=== PATIENT | female | born 1970 | race Caucasian/White ===

== ENCOUNTER 2023-02-22 07:14 | Outpatient (OUT) | payer OTHER, SELFPAY ==
--- NOTE | 2023-02-22 | MM_ITS ---
Patient Name: LIBBY GARCIA MR#: [id number] : 1970 Exam Date: 02/22/2023 Ordering Doctor: DR Julio Hinojosa . RADIOLOGY REPORT PROCEDURE: MM TOMOSYNTHESIS SCREENING BI COMPARISON: MG MAMM SCREEN 3D RAMEZ CAD, 02/05/2022. MG MAMM SCREEN 3D RAMEZ CAD, 01/27/2021. MG MAMM SCREEN RAMEZ W CAD, 01/27/2020. MG MAMM RAMEZ SCRN W CAD DIG, 10/27/2013. INDICATIONS: Screening Mammography Calculator Name NCI Breast Cancer Risk Assessment Tool 5 Year Breast Cancer Risk 0.90% Lifetime Breast Cancer Risk 7.10% Personal Breast Cancer No Personal Ovarian Cancer No Treatments None Family Cancers Mother with melanoma cancer at age 41. LOCATION: [facility] BREAST COMPOSITION: Heterogeneously dense,which may obscure small masses. FINDINGS: DIAGNOSTIC CATEGORY 1--NEGATIVE. RIGHT BREAST: No significant suspicious finding. No significant change has occurred. LEFT BREAST: No significant suspicious finding. No significant change has occurred. RECOMMENDATIONS: ROUTINE MAMMOGRAM AND CLINICAL EVALUATION IN 12 MONTHS. PLEASE NOTE: A NORMAL MAMMOGRAM DOES NOT EXCLUDE THE POSSIBILITY OF BREAST CANCER. A CLINICALLY SUSPICIOUS PALPABLE LUMP SHOULD BE BIOPSIED. Dictated by: Jadiel Hooks M.D. on 02/22/2023 at 14:45 Approved by: Jadiel Hooks M.D. on 02/22/2023 at 14:47
== END 2023-02-22 07:15 | disposition home or self-care (01) ==
LOC: MAMMO 07:15
PROVIDERS: PCP Internal Medicine; Visit Provider Obstetrics & Gynecology
DX: Z12.31 Encounter for screening mammogram for malignant neoplasm of breast (principal); Z80.8 Family history of malignant neoplasm of other organs or systems
CPT/HCPCS: 77063; 77067

== ENCOUNTER 2023-02-26 20:39 | Outpatient (REF) | payer OTHER, SELFPAY ==
[2023-03-01 12:08] LABS: Age Gdln ACOG Testing Note (.); HPV Aptima Negative (Negative); IGP, Aptima HPV, rfx 16/18,45 Note (.)
== END 2023-02-26 20:40 | disposition home or self-care (01) ==
LOC: LAB 20:39
PROVIDERS: PCP Internal Medicine; Visit Provider Obstetrics & Gynecology
DX: Z01.419 Encounter for gynecological examination (general) (routine) without abnormal findings (principal)
CPT/HCPCS: 87624; G0145

== ENCOUNTER 2023-03-29 06:37 | Outpatient (OUT) | payer OTHER, SELFPAY ==
--- OUTSIDE RECORDS SUMMARY | 2023-03-29 06:40 | XMS_ITS | CCD ---
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 Role Phone AQUILINO, DR SOTOMAYOR Admitting Unavailable AQUILINO, DR SOTOMAYOR Attending Unavailable AQUILINO, DR SOTOMAYOR Primary Care Unavailable AQUILINO, DR SOTOMAYOR Consulting Unavailable JOSHUA, DR ORTIZ Admitting Unavailable JOSHUA, DR ORTIZ Attending Unavailable AQUILINO, DR SOTOMAYOR Primary Care Unavailable MOSCOW, DR MARCELINA Kennedy Consulting Unavailable JOSHUA, DR ORTIZ Consulting Unavailable JOSHUA, DR ORTIZ Admitting Unavailable JOSHUA, DR ORTIZ Attending Unavailable AQUILINO, DR SOTOMAYOR Primary Care Unavailable JOSHUA, DR ORTIZ Consulting Unavailable ZIEBER, DR CRISTINE Garnica Consulting Unavailable Aquilino, Demario Unavailable ANGEL LEWIS Attending Unavailable Allergies Allergy Classification Reported Allergen(s) Allergy Type Date of Onset Reaction(s) Facility (2 sources) patient allergy list reviewed by nurse or physicia Propensity to adverse reactions 8 Comment:Done Interhyp Other (2 sources) Allergies Reconciled Propensity to adverse reactions Unknown Interhyp Other Medications Current Medications Medication Drug Class(es) Dates Sig (Normalized) Sig (Original) cyclobenzaprine hydrochloride 10 mg oral tablet (6 sources) Muscle Relaxant Start: 3 Cyclobenzaprine HCl 10 MG 1 Orally Once a day for 30 day(s) Mar, Active estrogens, conjugated (retirement) 1.25 mg oral tablet (5 sources) Estrogen take 1 tablet by mouth every twenty-four hours Premarin 1.25 MG 1 tablet Orally Once a day Active hydroCHLOROthiazide 12.5 mg oral capsule (6 sources) Thiazide Diuretic Start: 3 take 1 capsule by mouth every twenty-four hours hydroCHLOROthiazide 12.5 MG 1 tablet in the morning Orally Once a day for 90 days Mar, Active Multivitamin preparation (5 sources) take 1 tablet by mouth once daily Multivitamin - 1 tablet Orally Once a day Active Completed/Discontinued Medications Medication Drug Class(es) Dates Sig (Normalized) Sig (Original) azithromycin 250 mg oral tablet (4 sources) Macrolide Antimicrobial Start: 09-07-2022 Azithromycin 250 MG as directed Orally daily for 5 days Sep, Not-Taking/PRN losartan potassium 50 mg oral tablet (6 sources) Angiotensin 2 Receptor Osiel Start: 03-12-2022 take 1 tablet by mouth every twenty-four hours Losartan Potassium 50 MG 1 tablet Orally Once a day for 90 days Mar, Not-Taking/PRN Problems Active Problems Problem Classification Problem Date Documented Date Episodic/Chronic Essential hypertension (14 sources) Essential hypertension; Translations: [Essential (primary) hypertension] Chronic Immunizations and screening for infectious disease (1 source) Encounter for screening for human papillomavirus (HPV); Translations: [ENC SCREENING HUMAN PAPILLOMAVIRUS] Onset: 02-10-2022 Episodic Nausea and vomiting (1 source) Nausea Episodic Other congenital anomalies (2 sources) Congenital spondylolysis of lumbosacral region; Translations: [Congenital spondylolysis, lumbosacral region] Onset: 11-19-2017 Chronic Other diseases of veins and lymphatics (7 sources) Peripheral venous insufficiency; Translations: [Venous insufficiency (chronic) (peripheral)] Episodic Other diseases of veins and lymphatics (3 sources) Venous insufficiency (chronic) (peripheral) Episodic Other female genital disorders (5 sources) Noninflammatory disorder of the vagina; Translations: [Other specified noninflammatory disorders of vagina] Episodic Other nutritional; endocrine; and metabolic disorders (7 sources) Obesity; Translations: [Obesity, unspecified] Chronic Other nutritional; endocrine; and metabolic disorders (1 source) Obesity, unspecified Chronic Other nutritional; endocrine; and metabolic disorders (2 sources) Simple obesity ; Translations: [Other obesity due to excess calories] Onset: 07-19-2016 Chronic Other nutritional; endocrine; and metabolic disorders (2 sources) Obese class II; Translations: [Body mass index 39.0-39.9, adult] Onset: 07-19-2016 Chronic Other nutritional; endocrine; and metabolic disorders (2 sources) Obese class I; Translations: [Body mass index 34.0-34.9, adult] Onset: 07-19-2016 Chronic Other nutritional; endocrine; and metabolic disorders (1 source) Overweight Episodic Other nutritional; endocrine; and metabolic disorders (1 source) Abnormal weight loss Episodic Other screening for suspected conditions (not mental disorders or infectious disease) (5 sources) Encounter for screening mammogram for malignant neoplasm of breast; Translations: [Encounter for screening for malignant neoplasm of cervix] Onset: 02-05-2022 Episodic Residual codes; unclassified (4 sources) Asymptomatic menopausal state; Translations: [ASYMPTOMATIC MENOPAUSAL STATE] Onset: 02-13-2022 Episodic Residual codes; unclassified (1 source) Family history of malignant neoplasm of other organs or systems; Translations: [FAM HX MALIG NEOPLASM OTH ORGN/SYS] Onset: 02-10-2022 Episodic Residual codes; unclassified (1 source) Family history of malignant neoplasm of digestive organs Episodic Spondylosis; intervertebral disc disorders; other back problems (12 sources) Cervical spondylosis; Translations: [Spondylosis without myelopathy or radiculopathy, cervical region] Chronic Sprains and strains (5 sources) Sprain of deltoid ligament of ankle; Translations: [Sprain of deltoid ligament of right ankle, initial encounter] Episodic Past or Other Problems Problem Classification Problem Date Documented Date Episodic/Chronic Acute bronchitis (3 sources) Acute bronchitis; Translations: [Acute bronchitis, unspecified] Onset: 03-01-2014 Episodic Genitourinary symptoms and ill-defined conditions (2 sources) Dysuria; Translations: [Dysuria] Onset: 09-11-2016 Episodic Menopausal disorders (4 sources) Postmenopausal bleeding; Translations: [Postmenopausal bleeding] Resolved: 11-17-2019 Chronic Other female genital disorders (2 sources) Abnormal uterine bleeding; Translations: [Abnormal uterine and vaginal bleeding, unspecified] Resolved: 11-17-2019 Chronic Other nutritional; endocrine; and metabolic disorders (2 sources) Morbid obesity; Translations: [Morbid (severe) obesity due to excess calories] Resolved: 08-22-2020 Chronic Other skin disorders (2 sources) Granulomatous disorder of the skin and subcutaneous tissue; Translations: [Granulomatous disorder of the skin and subcutaneous tissue, unspecified] Resolved: 11-17-2019 Episodic Other upper respiratory infections (4 sources) Acute laryngitis; Translations: [Acute laryngitis] Onset: 03-01-2014 Episodic Viral infection (2 sources) Disease caused by 2019-nCoV; Translations: [COVID-19] Resolved: 09-19-2021 Results Test Name Value Interpretation Reference Range Facil ity CBC AUTO DIFFon 03-17-2022 BASO # 0.0 103/ul Normal 0.0-0.1 [facility] Comment on above: Performed By: #### C BC #### [facility] [address] [address] [address] Dong Mack Basophils/100 WBC (Bld) 0.7 % Normal 0.2-2.0 [facility] Comment on above: Performed By: #### C BC #### [facility] [address] [address] [address] Dong Mack EO # 0.1 103/ul Normal 0.0-0.7 [facility] Comment on above: Performed By: #### C BC #### [facility] [address] [address] [address] Dong Mack Eosinophils/100 WBC (Bld) 2.2 % Normal 0.9-7.0 [facility] Comment on above: Performed By: #### C BC #### [facility] [address] [address] [address] Dong Mack Erythrocyte distribution width (RBC) [Ratio] 11.8 % Normal 11.0-15.0 [facility] Comment on above: Performed By: #### C BC #### [facility] [address] [address] [address] Dong Mack Hematocrit (Bld) [Volume fraction] 39.6 % Normal 36.0-48.0 [facility] Comment on above: Performed By: #### C BC #### [facility] [address] [address] [address] Dong Mack Hemoglobin (Bld) [Mass/Vol] 13.9 g/dL Normal 12.0-16.0 [facility] Comment on above: Performed By: #### C BC #### [facility] [address] [address] [address] Dong Mack IG # 0.02 10e3/ul Normal 0.00-0.03 [facility] Comment on above: Performed By: #### C BC #### [facility] [address] [place] [address] Dr. Dong Mack IG % 0.4 % Normal 0.0-0.5 [facility] Comment on above: Performed By: #### C BC #### [facility] [address] [place] [address] Dr. Dong Mack LYMPH # 2.3 103/ul Normal 1.2-3.8 [facility] Comment on above: Performed By: #### C BC #### [facility] [address] [place] [address] Dr. Dong Mack Lymphocytes/100 WBC (Bld) 42.7 % Normal 20.5-60.0 [facility] Comment on above: Performed By: #### C BC #### [facility] [address] [place] [address] Dr. Dong Mack MANUAL DIFF REQ NO Normal [facility] Comment on above: Performed By: #### C BC #### [facility] [address] [place] [address] Dr. Dong Mack MCH (RBC) [Entitic mass] 31.4 pg Normal 26.7-34.0 [facility] Comment on above: Performed By: #### C BC #### [facility] [address] [place] [address] Dr. Dong Mack MCHC (RBC) [Mass/Vol] 35.1 g/dL Normal 29.9-35.2 [facility] Comment on above: Performed By: #### C BC #### [facility] [address] [place] [address] Dr. Dong Mack MCV (RBC) [Entitic vol] 89.4 fL Normal 81.0-99.0 [facility] Comment on above: Performed By: #### C BC #### [facility] [address] [place] [address] Dr. Dong Mack MONO # 0.4 103/ul Normal 0.3-0.8 [facility] Comment on above: Performed By: #### C BC #### [facility] [address] [place] [address] Dr. Dong Mack Monocytes/100 WBC (Bld) 6.9 % Normal 1.7-12.0 [facility] Comment on above: Performed By: #### C BC #### [facility] [address] [place] [address] Dr. Dong Mack NEUT # 2.5 103/ul Normal 1.4-6.5 [facility] Comment on above: Performed By: #### C BC #### [facility] [address] [place] [address] Dr. Dong Mack Neutrophils/100 WBC (Bld) 47.1 % Normal 43.0-75.0 [facility] Comment on above: Performed By: #### C BC #### [facility] [address] [place] [address] Dr. Dong Mack Platelet mean volume (Bld) [Entitic vol] 10.7 fL Normal 9.5-13.5 [facility] Comment on above: Performed By: #### C BC #### [facility] [address] [place] [address] Dr. Dong Mack PLT 280 103/ul Normal 150-450 [facility] Comment on above: Performed By: #### C BC #### [facility] [address] [place] [address] Dr. Dong Mack RBC 4.43 106/ul Normal 4.20-5.40 [facility] Comment on above: Performed By: #### C BC #### [facility] [address] [place] [address] Dr. Dong Mack WBC 5.3 103/ul Normal 4.0-11.0 [facility] Comment on above: Performed By: #### C BC #### [facility] [address] [place] [address] Dr. Dong Mack LIPID PROFILEon 03-17-2022 CHOL-HDL RATIO NORM SEE BELOW Normal [facility] Comment on above: Result Comment: 3.3 - 4.4 LOW RISK 4.4 - 7.1 AVERAGE RISK 7.1 - 11.0 MODERATE RISK >11.0 HIGH RISK Performed By: #### L IPID, TSH, CMP #### [facility] [address] [address] [address] Dong Mack Cholesterol [Mass/Vol] 254 mg/dL Critically high <=200 [facility] Comment on above: Performed By: #### L IPID, TSH, CMP #### [facility] [address] [address] [address] Dong Mack Cholesterol in HDL [Mass/Vol] 72 mg/dL Critically high 40-60 [facility] Comment on above: Performed By: #### L IPID, TSH, CMP #### [facility] [address] [address] [address] Dong Mack Cholesterol in LDL [Mass/Vol] 152.4 mg/dL Normal [facility] Comment on above: Performed By: #### L IPID, TSH, CMP #### [facility] [address] [place] [address] Dr. Dong Mack Cholesterol.total/ Cholesterol in HDL [Mass ratio] 3.5 {ratio} Normal [facility] Comment on above: Performed By: #### L IPID, TSH, CMP #### [facility] [address] [place] [address] Dr. Dong Mack HDL NORMAL > or = 60 mg/dl - LO W CARDIOVASCULAR RISK <40 mg/dl - HIGH CARDIOVASCULAR RISK Normal [facility] Comment on above: Performed By: #### L IPID, TSH, CMP #### [facility] [address] [address] [address] Dong Mack LDL CALC NORMAL SEE BELOW Normal [facility] Comment on above: Result Comment: <100 mg/dl OPTIMAL 100 - 129 mg/dl NEAR OR ABOVE OPTIMAL 130 - 159 mg/dl BORDERLINE HIGH 160 - 189 mg/dl HIGH >190 mg/dl VERY HIGH Performed By: #### L IPID, TSH, CMP #### [facility] [address] [address] [address] Dong Mack Triglyceride [Mass/Vol] 148 mg/dL Normal <=150 [facility] Comment on above: Performed By: #### L IPID, TSH, CMP #### [facility] [address] [address] [address] Dong Mack VLDL CALC 29.6 mg/dL Normal [facility] Comment on above: Performed By: #### L IPID, TSH, CMP #### [facility] [address] [place] [address] Dr. Dong Mack PROF 14(COMP METB)on 023 Albumin [Mass/Vol] 3.8 g/dL Normal 3.4-5.0 [facility] Comment on above: Performed By: #### L IPID, TSH, CMP #### [facility] [address] [place] [address] Dr. Dong Mack Albumin/Globulin [Mass ratio] 1.2 {ratio} Normal [facility] Comment on above: Performed By: #### L IPID, TSH, CMP #### [facility] [address] [place] [address] Dr. Dong Mack ALP [Catalytic activity/Vol] 52 U/L Normal 46-116 [facility] Comment on above: Performed By: #### L IPID, TSH, CMP #### [facility] [address] [place] [address] Dr. Dong Mack ALT [Catalytic activity/Vol] 27 U/L Normal 14-59 [facility] Comment on above: Performed By: #### L IPID, TSH, CMP #### [facility] [address] [place] [address] Dr. Dong Mack Anion gap [Moles/Vol] 8.1 mmol/L Normal [facility] Comment on above: Performed By: #### L IPID, TSH, CMP #### [facility] [address] [place] [address] Dr. Dong Mack AST [Catalytic activity/Vol] 22 U/L Normal 15-37 [facility] Comment on above: Performed By: #### L IPID, TSH, CMP #### [facility] [address] [place] [address] Dr. Dong Mack Bilirubin [Mass/Vol] 0.7 mg/dL Normal 0.2-1.0 [facility] Comment on above: Performed By: #### L IPID, TSH, CMP #### [facility] [address] [place] [address] Dr. Dong Mack Calcium [Mass/Vol] 9.2 mg/dL Normal 8.5-10.1 [facility] Comment on above: Performed By: #### L IPID, TSH, CMP #### [facility] [address] [address] [address] Dong Mack Chloride [Moles/Vol] 103 mmol/L Normal 98-107 [facility] Comment on above: Performed By: #### L IPID, TSH, CMP #### [facility] [address] [place] [address] Dr. Dong Mack CO2 [Moles/Vol] 33.9 mmol/L Critically high 21.0-32.0 [facility] Comment on above: Performed By: #### L IPID, TSH, CMP #### [facility] [address] [place] [address] Dr. Dong Mack Creatinine [Mass/Vol] 0.66 mg/dL Normal 0.55-1.02 [facility] Comment on above: Performed By: #### L IPID, TSH, CMP #### [facility] [address] [place] [address] Dr. Dong Mack EGFR-AF COMORAN >60 Normal >=60 [facility] Comment on above: Performed By: #### L IPID, TSH, CMP #### [facility] [address] [place] [address] Dr. Dong Mack EGFR-NON AF COMORAN >60 Normal >=60 [facility] Comment on above: Performed By: #### L IPID, TSH, CMP #### [facility] [address] [place] [address] Dr. Dong Mack Globulin (S) [Mass/Vol] 3.3 g/dL Normal [facility] Comment on above: Performed By: #### L IPID, TSH, CMP #### [facility] [address] [place] [address] Dr. Dong Mack Glucose [Mass/Vol] 94 mg/dL Normal 74-106 [facility] Comment on above: Performed By: #### L IPID, TSH, CMP #### [facility] [address] [address] [address] Dong Mack Potassium [Moles/Vol] 4.0 mmol/L Normal 3.5-5.1 [facility] Comment on above: Performed By: #### L IPID, TSH, CMP #### [facility] [address] [place] [address] Dr. Dong Mack Protein [Mass/Vol] 7.1 g/dL Normal 6.4-8.2 [facility] Comment on above: Performed By: #### L IPID, TSH, CMP #### [facility] [address] [place] [address] Dr. Dong Mack Sodium [Moles/Vol] 141 mmol/L Normal 136-145 [facility] Comment on above: Performed By: #### L IPID, TSH, CMP #### [facility] [address] [place] [address] Dr. Dong Mack Urea nitrogen [Mass/Vol] 13.0 mg/dL Normal 7.0-18.0 [facility] Comment on above: Performed By: #### L IPID, TSH, CMP #### [facility] [address] [place] [address] Dr. Dong Mack Urea nitrogen/Creatinin e [Mass ratio] 19.7 mg/mg Normal [facility] Comment on above: Performed By: #### L IPID, TSH, CMP #### [facility] [address] [place] [address] Dr. Dong Mack TSHon 03-17-2022 TSH 1.223 uIU/mL Normal 0.358-3.740 [facility] Comment on above: Performed By: #### L IPID, TSH, CMP #### [facility] [address] [place] [address] Dr. Dong Mack PAP ACOG PANEL 2: 30 to 65on 02-13-2022 . . Normal [facility] Comment on above: Result Comment: Perf ormed at: WB Performed By: #### [id number] #### [facility] [address] [place] [address] Dr. Dong Mack Age Gdln ACOG Testing 30-65 Normal [facility] Comment on above: Performed By: #### [id number] #### [facility] [address] [place] [address] Dr. Dong Mack DIAGNOSIS: Comment Normal [facility] Comment on above: Result Comment: NEGA TIVE FOR INTRAEPITHELIAL LESION OR MALIGNANCY. Performed at: WB Performed By: #### [id number] #### [facility] [address] [place] [address] Dr. Dong Mack HPV Aptima Negative Normal Negative [facility] Comment on above: Result Comment: This nucleic acid amplification test detects fourteen high-risk HPV types (16,18,31,33,35,39,45,51,52,56,58,59,66,68) without differentiation. Performed at: =G Performed By: #### [id number] #### [facility] [address] [place] [address] Dr. Dong Mack HPV Genotype Reflex Comment Normal [facility] Comment on above: Result Comment: Crit eria not met, HPV Genotype not performed. Performed at: WB Performed By: #### [id number] #### [facility] [address] [place] [address] Dr. Dong Mack Methodology: Comment Normal [facility] Comment on above: Result Comment: This liquid based ThinPrep(R) pap test was screened with the use of an image guided system. Performed at: WB Performed By: #### [id number] #### [facility] [address] [place] [address] Dr. Dong Mack Note: Comment Normal [facility] Comment on above: Result Comment: The Pap smear is a screening test designed to aid in the detection of premalignant and malignant conditions of the uterine cervix. It is not a diagnostic procedure and should not be used as the sole means of detecting cervical cancer. Both false-positive and false-negative reports do occur. . Performed at: WB Performed By: #### [id number] #### [facility] [address] [address] [address] Dong Mack Performed by: Comment Normal [facility] Comment on above: Result Comment: Nithya Keen, Palletizer Operator Performed at: WB Performed By: #### [id number] #### [facility] [address] [address] [address] Dong Mack Specimen adequacy: Comment Normal [facility] Comment on above: Result Comment: Sati sfactory for evaluation. Endocervical and/or squamous metaplastic cells (endocervical component) are present. Performed at: WB Performed By: #### [id number] #### [facility] [address] [address] [address] Dong Mack XR DEXA BONE DENSITYon 02-13 XR DEXA BONE DENSITY EXAMINATION: XR DEXA BONE DENSITY, 02/13/2022 7:56 AM EST HISTORY: Menopause present COMPARISON: None. TECHNIQUE: Dual-energy X-ray absorptiometry (DEXA) bone density study performed for the axial skeleton. FINDINGS: FOREARM ANALYSIS: Average bone mineral density is 0.752 g/cm2. T-score (standard deviation relative to young adult mean): 0.5 . HIP ANALYSIS: Lowest bone mineral density is within the right femoral neck, 1.089 g/cm2. T-score (standard deviation relative to young adult mean): 0.4 . IMPRESSION: [employer] Organization Classification: Normal - Low Fracture Risk Electronically authenticated by: CRISTINE POPE Date: 2022-02-13 08:43 Normal [facility] MAMM SCREEN 3D RAMEZ CADon 02-05-2022 MG MAMM SCREEN 3D RAMEZ CAD Patient: LIBBY NINO Exam Date: 02/05/2022 : 1970 Gender:F Ordering : DR ANGEL LEWIS . Admission #: [id number] Family : DR DEMARIO ROLLE D.O. Order #: [id number] CLICK HERE TO VIEW EXAM RADIOLOGY REPORT PROCEDURE: MAMMOGRAM SCREENING 3D BILATERAL CAD COMPARISON: MG MAMM SCREEN 3D RAMEZ CAD, 01/27/2021. MG MAMM SCREEN RAMEZ W CAD, 01/27/2020. INDICATIONS: Screening mammography Calculator Name NCI Breast Cancer Risk Assessment Tool 5 Year Breast Cancer Risk 0.80% Lifetime Breast Cancer Risk 7.20% Personal Breast Cancer No Personal Ovarian Cancer No Treatments None Family Cancers Mother with melanoma cancer at age 41. LOCATION: [facility] BREAST COMPOSITION: Heterogeneously dense,which may obscure small masses. FINDINGS: DIAGNOSTIC CATEGORY 2--BENIGN FINDING: Scattered benign-appearing lymph nodes are present. RIGHT BREAST: No significant suspicious finding. LEFT BREAST: No significant suspicious finding. RECOMMENDATIONS: ROUTINE MAMMOGRAM AND CLINICAL EVALUATION IN 12 MONTHS. PLEASE NOTE: A NORMAL MAMMOGRAM DOES NOT EXCLUDE THE POSSIBILITY OF BREAST CANCER. A CLINICALLY SUSPICIOUS PALPABLE LUMP SHOULD BE BIOPSIED. Dictated by: Marcelina Triana MD on 02/05/2022 at 09:49 Approved by: Marcelina Triana MD on 02/05/2022 at 09:50 Normal [facility] COVID-19 Antigenon 2 COVID-19 Antigen Healthcare Worker?: N Carli Reference Carli Reference Negative SARS-CoV+SARS-CoV-2 (COVID-19) Ag [Presence] in Respiratory specimen by Rapid immunoassay Negative for SARS Antigen by ANTONIO COVID19 Blank Space Carli Disclaimer Negative results, from patients with symptom Carli Disclaimer onset beyond five days, should be treated as Carli Disclaimer presumptive and confirmation with a molecular Carli Disclaimer assay, if necessary, for patient management, Carli Disclaimer may be performed. Negative results do not rule Carli Disclaimer out COVID-19 and should not be used as the sole Carli Disclaimer basis for treatment or patient management Carli Disclaimer decisions, including infection control decisions. Carli Disclaimer Negative results should be considered in the Carli Disclaimer context of a patient's recent exposures, history Carli Disclaimer and the presence of clinical signs and symptoms Carli Disclaimer consistent with COVID-19. COVID19 Blank Space Carli Disclaimer The Carli SARS Antigen ANTONIO does not differentiate Carli Disclaimer between SARS-CoV and SARS-CoV-2. COVID19 Blank Space Carli Disclaimer This test was developed and its performance Carli Disclaimer characteristic determined by [employer] and Carli Disclaimer validated at [facility]. This Carli Disclaimer test has not been FDA cleared or approved. This Carli Disclaimer test has been authorized by FDA under an Emergency Use Carli Disclaimer Authorization (EUA). This test has been validated Carli Disclaimer in accordance with the FDA's Guidance Document (Policy Carli Disclaimer for Diagnostics Testing in Laboratories Certified to Carli Disclaimer Perform High Complexity Testing under CLIA prior to Carli Disclaimer Emergency Use Authorization for Coronavirus Carli Disclaimer is during the Public Health Emergency) Carli Disclaimer issued on June 04, 2019. This test is only authorized Carli Disclaimer for the duration of time the declaration that Carli Disclaimer circumstances exist justifying the authorization of Carli Disclaimer the emergency use of in vitro diagnostic tests for Carli Disclaimer detection of SARS-CoV-2 virus and/or diagnosis of Carli Disclaimer COVID-19 infection under section 564(b)(1) of the Carli Disclaimer Act, 21 U.S.C. 360bbb-3(b)(1), unless the Carli Disclaimer authorization is terminated or revoked sooner. PERFORMED BY: [facility] [address] [place] [address] PATHOLOGIST ASSISTANT COUNSEL WAQAS DÍAZ M.D. [facility] Comment on above: Performed By: #### C OVID-19 CARLI, SOFIANEG #### [facility] [address] Carli Ag Negativeon 04-25-19 22 Carli Ag Negative Negative Normal Negative [facility] Comment on above: Result Comment: This is a duplicate Carli SARS Antigen (ANTONIO) result to be used for statistical tracking purpose only. PERFORMED BY: [facility] [address] [place] [address] PATHOLOGIST ASSISTANT COUNSEL WAQAS DÍAZ M.D. Performed By: #### C OVID-19 CARLI, SOFIANEG #### [facility] [address] LUMBAR SPINE 2 OR 3 VIEWSon 09-18-2018 LUMBAR SPINE 2 OR 3 VIEWS STUDY: LUMBAR SPINE 2 OR 3 VIEWS; 09/18/2018 10:45 am INDICATION: PAIN. COMPARISON: Intraoperative radiographs from 06/25/2018 ACCESSION NUMBER(S): [id number] ORDERING CLINICIAN: Emely Puckett FINDINGS: Interbody graft at L3-4. Posterior metallic fusion hardware with laminectomy defects L4-S1. Grade 2-3 anterolisthesis L5-S1 unchanged. No new fracture subluxation. No new disc height loss. Degenerative changes appear similar prior exam. IMPRESSION: L3-4 and L4-S1 fusion changes. Normal [facility] BASIC MET PANELon 06-26-2018 Anion gap [Moles/Vol] 8 mmol/L Normal 6-18 [facility] Comment on above: Order Comment: CONSE RVATION Performed By: #### L 500.77381, L500.76060, L500.80995 #### Test performed at: [address] [address] Calcium [Mass/Vol] 8.3 mg/dL Low 8.5-10.1 [facility] Comment on above: Order Comment: CONSE RVATION Performed By: #### L 500.23591, L500.26793, L500.74210 #### Test performed at: [address] [address] Chloride [Moles/Vol] 103 mmol/L Normal 98-107 [facility] Comment on above: Order Comment: CONSE RVATION Performed By: #### L 500.95380, L500.32002, L500.83588 #### Test performed at: [address] [address] CO2 [Moles/Vol] 30 mmol/L Normal 21-32 [facility] Comment on above: Order Comment: CONSE RVATION Performed By: #### L 500.06143, L500.89813, L500.03122 #### Test performed at: [address] [address] Creatinine [Mass/Vol] 0.620 mg/dL Normal 0.550-1.020 [facility] Comment on above: Order Comment: CONSE RVATION Performed By: #### L 500.31819, L500.49050, L500.73486 #### Test performed at: [address] [address] Glucose [Mass/Vol] 139 mg/dL High 70-99 [facility] Comment on above: Order Comment: CONSE RVATION Result Comment: Fast ing GLUCOSE reference range has been updated per (ADA) [place] [employer]'s recommendation. 05/27/2018 Performed By: #### L 500.47502, L500.20519, L500.79734 #### Test performed at: [address] [address] OSM 284 mosm/kg Normal 270-300 [facility] Comment on above: Order Comment: CONSE RVATION Performed By: #### L 500.28723, L500.43008, L500.82904 #### Test performed at: [address] [address] Potassium [Moles/Vol] 4.3 mmol/L Normal 3.5-5.1 [facility] Comment on above: Order Comment: CONSE RVATION Performed By: #### L 500.68942, L500.43486, L500.86755 #### Test performed at: [address] [address] Sodium [Moles/Vol] 137 mmol/L Normal 136-145 [facility] Comment on above: Order Comment: CONSE RVATION Performed By: #### L 500.52405, L500.74900, L500.40722 #### Test performed at: [address] [address] Urea nitrogen [Mass/Vol] 5 mg/dL Low 7-18 [facility] Comment on above: Order Comment: CONSE RVATION Performed By: #### L 500.50266, L500.17686, L500.93181 #### Test performed at: [address] [address] CBC W/DIFFon 06-26-2018 BASO ABS 0.0 K/uL Normal 0.0-0.2 [facility] Comment on above: Order Comment: CONSE RVATION Performed By: #### L 200.70323 #### Test performed at: [address] [address] Basophils/100 WBC (Bld) 0.1 % Normal [facility] Comment on above: Order Comment: CONSE RVATION Performed By: #### L 200.11147 #### Test performed at: [address] [address] EOS ABS 0.0 K/uL Normal 0.0-0.5 [facility] Comment on above: Order Comment: CONSE RVATION Performed By: #### L 200.80537 #### Test performed at: [address] [address] Eosinophils/100 WBC (Bld) 0.0 % Normal [facility] Comment on above: Order Comment: CONSE RVATION Performed By: #### L 200.22225 #### Test performed at: [address], [place] [address] IG % 0.5 % Normal [facility] Comment on above: Order Comment: CONSE RVATION Performed By: #### L 200.79079 #### Test performed at: [address] [address] IG ABS 0.07 K/uL High 0-0.05 [facility] Comment on above: Order Comment: CONSE RVATION Performed By: #### L 200.49409 #### Test performed at: [address] [address] Lymphocytes (Bld) [#/Vol] 1.2 10*3/uL Normal 1.2-3.5 [facility] Comment on above: Order Comment: CONSE RVATION Performed By: #### L 200.39080 #### Test performed at: [address] [address] Lymphocytes/100 WBC (Bld) 9.2 % Normal [facility] Comment on above: Order Comment: CONSE RVATION Performed By: #### L 200.46530 #### Test performed at: [address] [address] MONO ABS 0.8 K/uL Normal 0.0-1.0 [facility] Comment on above: Order Comment: CONSE RVATION Performed By: #### L 200.05948 #### Test performed at: [address] [address] Monocytes/100 WBC (Bld) 5.7 % Normal [facility] Comment on above: Order Comment: CONSE RVATION Performed By: #### L 200.54002 #### Test performed at: [address] [address] NEUTROPHIL ABS 11.4 K/uL High 1.4-6.6 [facility] Comment on above: Order Comment: CONSE RVATION Performed By: #### L 200.84589 #### Test performed at: [address] [address] Neutrophils/100 WBC (Bld) 84.5 % Normal [facility] Comment on above: Order Comment: CONSE RVATION Performed By: #### L 200.23400 #### Test performed at: [address] [address] Erythrocyte distribution width (RBC) [Ratio] 11.5 % Normal 11.5-14.5 [facility] Comment on above: Order Comment: CONSE RVATION Performed By: #### L 200.12655 #### Test performed at: [address] [address] Hematocrit (Bld) [Volume fraction] 31.4 % Low 36.0-48.0 [facility] Comment on above: Order Comment: CONSE RVATION Performed By: #### L 200.39340 #### Test performed at: [address] [address] Hemoglobin (Bld) [Mass/Vol] 11.2 g/dL Low 12.0-15.0 [facility] Comment on above: Order Comment: CONSE RVATION Result Comment: Delt a: 14.1 on 06/12/18 Performed By: #### L 200.48449 #### Test performed at: [address] [address] MCH (RBC) [Entitic mass] 32.3 pg Normal 25.4-34.6 [facility] Comment on above: Order Comment: CONSE RVATION Performed By: #### L 200.30458 #### Test performed at: [address] [address] MCHC (RBC) [Mass/Vol] 35.7 g/dL Normal 31.5-36.5 [facility] Comment on above: Order Comment: CONSE RVATION Performed By: #### L 200.32572 #### Test performed at: [address] [address] MCV (RBC) [Entitic vol] 90.5 fL Normal 79.0-98.0 [facility] Comment on above: Order Comment: CONSE RVATION Performed By: #### L 200.84897 #### Test performed at: [place] [address] NRBC # 0.000 K/uL Normal 0-0.012 [facility] Comment on above: Order Comment: CONSE RVATION Performed By: #### L 200.02609 #### Test performed at: [place] [address] NRBC % 0.0 /100 WBC Normal 0-0.2 [facility] Comment on above: Order Comment: CONSE RVATION Performed By: #### L 200.84760 #### Test performed at: [address] [address] Platelet mean volume (Bld) [Entitic vol] 11.3 fL Normal 8.7-12.4 [facility] Comment on above: Order Comment: CONSE RVATION Performed By: #### L 200.23323 #### Test performed at: [address] [address] Platelets (Bld) [#/Vol] 208 10*3/uL Normal 140-440 [facility] Comment on above: Order Comment: CONSE RVATION Performed By: #### L 200.68169 #### Test performed at: [address] [address] RBC (Bld) [#/Vol] 3.47 10*6/uL Low 3.5-5.5 [facility] Comment on above: Order Comment: CONSE RVATION Performed By: #### L 200.60063 #### Test performed at: [place] [address] WBC (Bld) [#/Vol] 13.5 10*3/uL High 3.9-11.0 [facility] Comment on above: Order Comment: CONSE RVATION Result Comment: Delt a: 6.5 on 06/12/18 Performed By: #### L 200.83630 #### Test performed at: [place] [address] EST. CREAT CLRon 06-26-2018 Creatinine [Mass/Vol] 159.375 ML/MIN Normal [facility] Comment on above: Order Comment: CBN: YES [place]: MAIN Result Comment: This result is an ESTIMATED blood creatinine clearance value which is derived from the patient age, sex, weight, and previous blood creatinine result. Performed By: #### L 500.31728, L500.93354 #### Test performed at: [place] [address] GFR ESTIMATEon 06-26-2018 IF AMER > 60 Normal > 60 [facility] Comment on above: Order Comment: CBN: YES [place]: MAIN Result Comment: eGFR (Estimated GFR) Units of measure:mL/min/1.73 meters sq. *CALCULATION REVISED 12/21/2014;IDMS-traceable MDRD equation eGFR is derived from the reexpressed MDRD Study equation using the following parameters: serum creatinine, age, gender and race. An eGFR<60 mL/min/1.73m2 for >3 months is consistent with chronic kidney disease. Refer to KDOQI guidelines for clinical interpretation. Performed By: #### L 500.80022, L500.80444 #### Test performed at: [place] [address] IF non-AFR AMER > 60 Normal > 60 [facility] Comment on above: Order Comment: CBN: YES [place]: MAIN Performed By: #### L 500.47373, L500.27422 #### Test performed at: [place] [address] CONSULTATION REPORTon 2018 CONSULTATION REPORT NAME: LIBBY NINO MR#: [id number] PHYS THERAPIST: Valencia Hernandez MD DATE OF CONSULTATION: 06/26/2018 CONSULTATION HISTORY: Mrs. Nino is a 47-year-old female who underwent lumbar decompressive laminectomy. The patient has history of multiple back surgeries due to her degenerative disk disorder. The patient is nonsmoker. Does not use alcohol or drugs. ALLERGIES: She has no known medication allergies. HOME MEDICATIONS: Include Zanaflex, tramadol, Tylenol, gabapentin, and multivitamin. REVIEW OF SYSTEMS: The patient has not been getting out of bed yet. She will remain flat until tomorrow. She denies any shortness of breath, chest pain, nausea, vomiting, lightheadedness. Her postsurgical pain is fairly well controlled. PHYSICAL EXAMINATION: GENERAL: On examination, she is awake and alert, comfortable, afebrile. VITAL SIGNS: Pulse is 104 and regular, respirations 20, blood pressure 114/59, pulse oximetry 99% on room air. BMI of 34.1 kg per square meter. HEENT: Her pupils are reactive. Oral mucosa is moist. LUNGS: Clear on auscultation. CARDIOVASCULAR EXAM: Unremarkable. ABDOMEN: Soft, not distended. Bowel sounds are present. EXTREMITIES: There is no calf tenderness. Pedal pulses are palpable. LABORATORY DATA: Blood work shows hemoglobin of 11.2 with WBCs of 13.5, BUN and creatinine of 5 and 0.62 respectively. ASSESSMENT AND PLAN: Status post lumbar decompressive laminectomy. Mild acute blood loss anemia. DVT prophylaxis with pneumatic compression device. The patient is medically stable. VALENCIA HERNANDEZ MD /[id number] PT NAME: LIBBY NINO MR#: [id number] [address] [place] [address] ACCT: [id number] : 70 CONSULTATION E/S: Valencia Hernandez MD 06/26/18 1221 Electronically Signed [facility] NAME: LIBBY NINO MR#: [id number] [address] [place] [address] ACCT: [id number] : 70 CONSULTATION Normal [facility] OPERATIVE REPORTon 9 OPERATIVE REPORT NAME: LIBBY NINO MR#: [id number] SURGEON: Casandra Russell MD DATE OF SURGERY: 06/25/2018 OPERATIVE REPORT HEALTHCARE ADMINISTRATOR: Sree and Justice Kaur. PREOPERATIVE DIAGNOSIS: Right L5 radiculopathy status post previous decompression with instrumentation using pedicle screws and Steffee plates bilaterally. 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 INDICATION: The patient had been solidly fused for quite some time, but the pain persisted. She had the situation explained to her. We went over the operation in detail discussing risks, benefits, and outcome possibilities as well as alternatives to this form of therapy. She understood and wanted us to proceed. We talked about working until we decompress the nerve root and if that required taking down the hardware and the pedicle we would but what we found was that there was an overgrown facet L4-5 which was pushing down on the nerve root. It also was apparent that the dura in the midline stopped at the L4 lamina and tacked up bunch of epidural fat, looked like they had durotomy because we were working out on the pedicle on the right-hand side and that is when we encountered a flash of CSF. We put a khushbu over that and came back to it at the end of the operation and there was no dura there. There was arachnoid thickened area with the epidural fat placed over it. We cleaned up the edges and we did get a watertight closure, but we were able to tack this up and we used DuraGen at the end of the procedure. OPERATION PERFORMED: Re-exploration, lysis of adhesion, takedown of the lamina at L4 and medial facetectomy at L4-5, partial panniculectomy at L5, opening up the foramina at L5-S1 decompressing the L5 and the S1 nerve root and then the dural repair with DuraGen Plus and green fibrin glue. FINDINGS: By the end of the operation, the L5 nerve root was completely free all the way out the foramen and the shoulder had been freed up and was no longer being pinched in the lateral recess. DESCRIPTION OF PROCEDURE: The patient was brought into the operating room, placed in the supine position. General endotracheal tube anesthesia was administered. The patient was positioned prone on the Ortega frame. The back was clipped, prepped, and draped in usual sterile fashion. The skin was infiltrated with local anesthetic. It was incised with a #10 blade. Hemostasis was obtained using the Bovie electrocautery. Then, the Bovie was used to incise down through the subcutaneous fat down to the fascia. The fascia was incised in the midline and then we were able to stay in the midline [facility] NAME: LIBBY NINO MR#: [id number] [address] [place] [address] ACCT: [id number] : 70 OPERATIVE REPORT exposing just a little bit of the spinous process of L3 and L4 was exposed later in the case, but first we used our Frye and Bovie and undercut out to the hardware and then we put in our Super-Slide retractor. Had good exposure. We would have to open up wider if we were going to take the hardware out, but we thought we would start with this opening and see if we got good decompression. Then, we used our curette, found the edge and made a nice circumferential opening. We stopped at the exposed L4 lamina and then we started working around the pedicle of L5 and this is where we got some CSF and we thought it was coming from the pedicle at L5 because that is where we saw it, but it turns out that is not where the opening was; it just was from the edge was adherent to the lower edge of L4 and just putting a little bit of traction on it caused it to pull free and there was no dura underneath; but in any event, we were able to keep the thecal sac fully expanded and we put a khushbu over that to protect the thecal sac and we used the Misonix BoneScalpel to thin the facet. We went well above the L5 pedicle to make certain that we opened up the lateral recess and undercut the facet all the way to the pedicle and in fact we shaved off 2 or 3 mm of the facet with our bone scalpel and this actually worked nicely because it gave the nerve root much more relaxed trajectory out through the foramen and then we bit off part of the upper lip of the sacrum as it went into the foramen because this was compressing on the nerve root and we worked out laterally both above and inferiorly to the nerve root. Having direct visualization, we made certain that we protected the nerve root and carried it all the way out past the pedicles and we felt that we had given a very nice opening. Then, we freed up the undersurface of the thecal sac with a blunt hook to make certain that the nerve roots could move freely. Then, we went back, irrigated, got good hemostasis with the bipolar and some Surgifoam. We did not leave a drain. There was absolutely no bleeding at the end of the operation and because we had gone through scar tissue, most everything was relatively dry. We did then get our 4-0 Nurolon and start putting some tack-up stitches. Then, we put our DuraGen down and put the tack-up stitches over the top so that it created a bit of a compressive dressing and then we used some of the green glue and got a good sealant and finished up with the green glue covering the entire area. Once everything was finished, then we took the retractor out. We got a good inspection of the muscle and made certain that there was no bleeding. We originally were going to put a drain. We decided not to use a drain because it was so dry and anything that was bleeding this was more of just a seepage and I would rather have a tamponade itself off and take the risk of sucking CSF, so we closed in multiple layers. We approximated the muscle with a few interrupted 0 Nurolon sutures. We closed the fascia in a watertight manner with interrupted 0 Vicryl sutures and then we used 10 mL of 0.5% Marcaine into the paraspinal muscles bilaterally. Then, we used inverted interrupted 2-0 Vicryl in the subcutaneous tissue and we closed the skin with a subcuticular running stitch of 4-0 Vicryl and reinforced with Prineo glue mesh construct. The patient was stable and tolerated the procedure well. CASANDRA RUSSELL MD [facility] NAME: LIBBY NINO MR#: [id number] [address] [place] [address] ACCT: [id number] : 70 OPERATIVE REPORT [id number] E/S: Casandra Russell MD 06/30/18 1134 Electronically Signed [facility] NAME: LIBBY NINO MR#: [id number] [address] [place] [address] ACCT: [id number] : 70 OPERATIVE REPORT Normal [facility] TSon 06-25-2018 ABO and Rh group Nom (Bld) A POSITIVE Normal [facility] Comment on above: Order Comment: CONSE RVATION CBN: NO [place]: MAIN Transfusion Status: CONSERVATION Blood Bank service requested: TYPE AND SCREEN Comments To Phleb: IN SDS Performed By: #### B 100.0200 #### Test performed at: [place] [address] LUMBAR SPINE 1 VIEWon 2018 LUMBAR SPINE 1 VIEW STUDY: LUMBAR SPINE 1 VIEW;; 06/25/2018 11:10 am; 06/25/2018 12:20 pm INDICATION: REMOVAL HARDWARE , FORAMINOTOMY L4-S1; HARDWARE REMOVAL, FORAMINOTOMY L4-S1. COMPARISON: None. ACCESSION NUMBER(S): [id number]; [id number] ORDERING CLINICIAN: Casandra Russell FINDINGS: 2 lateral intraoperative views of the lumbar spine were performed for intraoperative localization. Please see procedure report for further details. IMPRESSION: Two lateral intraoperative views of the lumbar spine for localization. Please see procedure report for further details Normal [facility] LUMBAR SPINE 1 VIEW STUDY: LUMBAR SPINE 1 VIEW;; 06/25/2018 11:10 am; 06/25/2018 12:20 pm INDICATION: REMOVAL HARDWARE , FORAMINOTOMY L4-S1; HARDWARE REMOVAL, FORAMINOTOMY L4-S1. COMPARISON: None. ACCESSION NUMBER(S): [id number]; [id number] ORDERING CLINICIAN: Casandra Russell FINDINGS: 2 lateral intraoperative views of the lumbar spine were performed for intraoperative localization. Please see procedure report for further details. IMPRESSION: Two lateral intraoperative views of the lumbar spine for localization. Please see procedure report for further details Normal [facility] BASIC MET PANELon 06-12-2018 Anion gap [Moles/Vol] 10 mmol/L Normal 6-18 [facility] Comment on above: Order Comment: CBN: YES [place]: MAIN Performed By: #### L 500.72186, L500.80801 #### Test performed at: [address] [address] Calcium [Mass/Vol] 9.7 mg/dL Normal 8.5-10.1 [facility] Comment on above: Order Comment: CBN: YES [place]: MAIN Performed By: #### L 500.08801, L500.87243 #### Test performed at: [address] [address] Chloride [Moles/Vol] 104 mmol/L Normal 98-107 [facility] Comment on above: Order Comment: CBN: YES [place]: MAIN Performed By: #### L 500.45889, L500.11897 #### Test performed at: [address] [address] CO2 [Moles/Vol] 30 mmol/L Normal 21-32 [facility] Comment on above: Order Comment: CBN: YES [place]: MAIN Performed By: #### L 500.28690, L500.94747 #### Test performed at: [address] [address] Creatinine [Mass/Vol] 0.665 mg/dL Normal 0.550-1.020 [facility] Comment on above: Order Comment: CBN: YES [place]: MAIN Performed By: #### L 500.53404, L500.13897 #### Test performed at: [address] [address] Glucose [Mass/Vol] 98 mg/dL Normal 70-99 [facility] Comment on above: Order Comment: CBN: YES [place]: MAIN Result Comment: Fast ing GLUCOSE reference range has been updated per (ADA) [place] [employer]'s recommendation. 05/27/2018 Performed By: #### L 500.23698, L500.68318 #### Test performed at: [address] [address] OSM 288 mosm/kg Normal 270-300 [facility] Comment on above: Order Comment: CBN: YES [place]: MAIN Performed By: #### L 500.69633, L500.68725 #### Test performed at: [address] [address] Potassium [Moles/Vol] 4.5 mmol/L Normal 3.5-5.1 [facility] Comment on above: Order Comment: CBN: YES [place]: MAIN Performed By: #### L 500.31402, L500.13195 #### Test performed at: [address] [address] Sodium [Moles/Vol] 139 mmol/L Normal 136-145 [facility] Comment on above: Order Comment: CBN: YES [place]: MAIN Performed By: #### L 500.76736, L500.30528 #### Test performed at: [address] [address] Urea nitrogen [Mass/Vol] 13 mg/dL Normal 7-18 [facility] Comment on above: Order Comment: CBN: YES [place]: MAIN Performed By: #### L 500.26607, L500.41774 #### Test performed at: [address] [address] CBCon 06-12-2018 Erythrocyte distribution width (RBC) [Ratio] 11.9 % Normal 11.5-14.5 [facility] Comment on above: Order Comment: CBN: YES [place]: MAIN Performed By: #### L 200.46499 #### Test performed at: [address] [address] Hematocrit (Bld) [Volume fraction] 40.7 % Normal 36.0-48.0 [facility] [place] Comment on above: Order Comment: CBN: YES [place]: MAIN Performed By: #### L 200.40507 #### Test performed at: [address] [address] Hemoglobin (Bld) [Mass/Vol] 14.1 g/dL Normal 12.0-15.0 [facility] Comment on above: Order Comment: CBN: YES [place]: MAIN Performed By: #### L 200.62690 #### Test performed at: [address] [address] MCH (RBC) [Entitic mass] 31.9 pg Normal 25.4-34.6 [facility] [place] Comment on above: Order Comment: CBN: YES [place]: MAIN Performed By: #### L 200.54645 #### Test performed at: [address] [address] MCHC (RBC) [Mass/Vol] 34.6 g/dL Normal 31.5-36.5 [facility] Comment on above: Order Comment: CBN: YES [place]: MAIN Performed By: #### L 200.75812 #### Test performed at: [address] [address] MCV (RBC) [Entitic vol] 92.1 fL Normal 79.0-98.0 [facility] [place] Comment on above: Order Comment: CBN: YES [place]: MAIN Performed By: #### L 200.53856 #### Test performed at: [address] [address] NRBC # 0.000 K/uL Normal 0-0.012 [facility] [place] Comment on above: Order Comment: CBN: YES [place]: MAIN Performed By: #### L 200.76652 #### Test performed at: [address] [address] NRBC % 0.0 /100 WBC Normal 0-0.2 [facility] [place] Comment on above: Order Comment: CBN: YES [place]: MAIN Performed By: #### L 200.73871 #### Test performed at: [address] [address] Platelet mean volume (Bld) [Entitic vol] 11.8 fL Normal 8.7-12.4 [facility] Comment on above: Order Comment: CBN: YES [place]: MAIN Performed By: #### L 200.32721 #### Test performed at: [address] [address] Platelets (Bld) [#/Vol] 246 10*3/uL Normal 140-440 [facility] Comment on above: Order Comment: CBN: YES [place]: MAIN Performed By: #### L 200.11108 #### Test performed at: [address] [address] RBC (Bld) [#/Vol] 4.42 10*6/uL Normal 3.5-5.5 [facility] Comment on above: Order Comment: CBN: YES [place]: MAIN Performed By: #### L 200.89034 #### Test performed at: [address] [address] WBC (Bld) [#/Vol] 6.5 10*3/uL Normal 3.9-11.0 [facility] Comment on above: Order Comment: CBN: YES [place]: MAIN Performed By: #### L 200.13023 #### Test performed at: [place] [address] GFR ESTIMATEon 06-12-2018 IF AMER > 60 Normal > 60 [facility] Comment on above: Order Comment: CBN: YES [place]: MAIN Result Comment: eGFR (Estimated GFR) Units of measure:mL/min/1.73 meters sq. *CALCULATION REVISED 12/21/2014;IDMS-traceable MDRD equation eGFR is derived from the reexpressed MDRD Study equation using the following parameters: serum creatinine, age, gender and race. An eGFR<60 mL/min/1.73m2 for >3 months is consistent with chronic kidney disease. Refer to KDOQI guidelines for clinical interpretation. Performed By: #### L 500.40136, L500.58127 #### Test performed at: [place] [address] IF non-AFR AMER > 60 Normal > 60 [facility] Comment on above: Order Comment: CBN: YES [place]: MAIN Performed By: #### L 500.74885, L500.70802 #### Test performed at: [place] [address] TSPATon 06-12-2018 ABO and Rh group Nom (Bld) A POSITIVE Normal [facility] Comment on above: Order Comment: CBN: YES [place]: MAIN Transfusion Status: CONSERVATION Blood Bank service requested: TYPE AND SCREEN Specimen Comment: SURG 06/25 Performed By: #### B 100.0201 #### Test performed at: [place] [address] Vital Signs Date Time Vital Sign Value Performing Clinician Facility 03-13-2023 08:30-0500 Body height 162.56 cm Demario Rolle Other [facility] Other 03-13-2023 08:30-0500 Body mass index (BMI) [Ratio] 25.37 kg/m2 Demario Rolle Other [facility] Other 03-13-2023 08:30-0500 Body weight 67.04 kg Demario Ball Other [facility] Other 03-13-2023 08:30-0500 Diastolic blood pressure 75 mm[Hg] Demario Ball Other [facility] Other 03-13-2023 08:30-0500 Respiratory rate 12 /min Demario Ball Other [facility] Other 03-13-2023 08:30-0500 Systolic blood pressure 125 mm[Hg] Demario Ball Other [facility] Other 09-07-2022 13:30-0400 Body height 162.56 cm Demario Ball Other [facility] Other 09-07-2022 13:30-0400 Body mass index (BMI) [Ratio] 26.19 kg/m2 Demario Ball Other [facility] Other 09-07-2022 13:30-0400 Body weight 69.22 kg Demario Ball Other [facility] Other 09-07-2022 13:30-0400 Diastolic blood pressure 76 mm[Hg] Demario Ball Other [facility] Other 09-07-2022 13:30-0400 Respiratory rate 12 /min Demario Ball Other [facility] Other 09-07-2022 13:30-0400 Systolic blood pressure 117 mm[Hg] Demario Ball Other [facility] Other 03-14-2022 09:30-0500 Body height 162.56 cm Demario Ball Other [facility] Other 03-14-2022 09:30-0500 Body mass index (BMI) [Ratio] 30.34 kg/m2 Demario Rolle Other [facility] Other 03-14-2022 09:30-0500 Body weight 80.2 kg Demario Rolle Other [facility] Other 03-14-2022 09:30-0500 Diastolic blood pressure 78 mm[Hg] Demario Rolle Other [facility] Other 03-14-2022 09:30-0500 Respiratory rate 12 /min Demario Rolle Other [facility] Other 03-14-2022 09:30-0500 Systolic blood pressure 122 mm[Hg] Demario Rolle Other [facility] Other Encounters Encounter Date Encounter Type Care Provider Facility Start: 03-18-2023 End: 03-18-2023 ambulatory Demario Rolle Other [facility] Other Start: 03-18-2023 Telephone encounter Demario SEGURA [facility] Start: 03-13-2023 End: 03-13-2023 ambulatory Demario Rolle Other [facility] Other Start: 03-13-2023 Encounter for genera l adult medical examination without abnormal findings Demario Rolle [facility] Start: 03-13-2023 Periodic preventive med est patient 40-64yrs Demario Rolle [facility] Start: 02-26-2023 End: 02-26-2023 ambulatory ANGEL JOSHUA Not Available Start: 11-12-2022 End: 11-12-2022 ambulatory Demario Rolle Other [facility] Other Start: 11-12-2022 Telephone encounter Demario SEGURA [facility] Start: 09-07-2022 End: 09-07-2022 ambulatory Demario Rolle Other [facility] Other Start: 09-07-2022 Office outpatient vi sit 15 minutes Demario Rolle [facility] Start: 03-17-2022 End: 03-18-[address] DEMARIO ROLLE Facility:[facility] Start: 03-14-2022 End: 03-14-2022 ambulatory Demario Rolle Other [facility] Other Start: 03-14-2022 Encounter for genera l adult medical examination without abnormal findings Demario Rolle [facility] Start: 03-14-2022 Periodic preventive med est patient 40-64yrs Demario Aquilino [facility] Start: 03-12-2022 Annual wellness visit Demario Rolle Other [facility] Other Start: 02-13-2022 End: 02-14-[address] ANGEL LEWIS Facility:[facility] Start: 02-05-2022 End: 02-06-[address] ANGEL LEWIS Facility:[facility] Start: 09-13-2021 Adult health examination Jose Rolle Other [facility] Other Start: 09-13-2021 Gynecological examin ation normal Demario Rolle Other [facility] Other Start: 06-25-2018 Patient encounter procedure Facility:[id number] Procedures Date Procedure Procedure Detail Performing Clinician Start: 06-25-2018 Antibody screen Comment on above: Order Comment: CONSE RVATION CBN: NO [place]: MAIN Transfusion Status: CONSERVATION Blood Bank service requested: TYPE AND SCREEN Comments To Phleb: IN SDS Result Comment: TYPE AND SCREEN PERFORMED IN G.PAT ON 06.12.18. Performed By: #### B 100.0200 #### Test performed at: [address] [address] Start: 06-12-2018 Antibody screen Comment on above: Order Comment: CBN: YES [place]: MAIN Transfusion Status: CONSERVATION Blood Bank service requested: TYPE AND SCREEN Specimen Comment: SURG 06/25 Performed By: #### B 100.0201 #### Test performed at: [address] [place], [place] [address] End: 09-19-2021 Depression screening Demario Rolle Other H/O: hysterectomy Demario Heredia all Other Hormone replacement therapy Demario Rolle Other Hormone replacement therapy Demario Rolle Other Hysterectomy Demario Rolle Other Screening for malign ant neoplasm of breast Demario Rolle Other Payers Date Payer Category Payer Unknown [id number] 1970 Unknown [id number] 1970 Unknown [id number] [id number] 1970 Unknown [id number] [id number] [id number] 1970 Unknown [id number] 1959 Private Health Insurance [id number] Social History Date Type Detail Facility Sex Assigned At [place] [facility] Other Evaluation note 03-13-2023 Note Date & Type Note Facility 03-13-2023 Evaluation note Encounter Date Diagnosis Assessment Notes Mar, Essential (primary) hypertension (ICD-10 - I10) This patient is instructed to consume a healthy, low-fat, low-salt diet. They are also encouraged to continue exercise to achieve/maintai n a normal BMI. Mar, Wellness examination (ICD-10 - Z00.00) Healthy diet and exercise. Reviewed age-appropriate preventive testing recommended. Mar, Chronic venous insufficiency (ICD-10 - I87.2) Avoid salt and elevate lower extremities, support stockings, inspect legs and feet daily for blisters and ulcerations. Hold HCTZ and monitor for any recurrence Mar, Lumbar spondylosis (ICD-10 - M47.816) The patient is instructed to avoid bending, twisting or lifting. They are to use intermittent heat and ice as needed. They may schedule a massage or gentle manipulation. They may safely use Tylenol as needed. Mar, Weight loss (ICD-10 - R63.4) Healthy diet, low fat/high protein. Due to weight loss, nausea and 4 family members w/ pancreatic cancer, would recommend MRCP Mar, Nausea (ICD-10 - R11.0) Diet instructions. Pepcid as needed. MRCP abdomen due to family hx of pancreatic cancer Mar, Family history of pancreatic cancer (ICD-10 - Z80.0) MRCP abdomen due family hx of pancreatic cancer, weight loss and nausea [facility] Other Evaluation note 11-12-2022 Note Date & Type Note Facility 11-12-2022 Evaluation note Encounter Date Diagnosis Assessment Notes Nov, Essential (primary) hypertension (ICD-10 - I10) [facility] Other Evaluation note 09-07-2022 Note Date & Type Note Facility 09-07-2022 Evaluation note Encounter Date Diagnosis Assessment Notes Sep, Essential (primary) hypertension (ICD-10 - I10) This patient is instructed to consume a healthy, low-fat, low-salt diet. They are also encouraged to continue exercise to achieve/mainta in a normal BMI. Decrease Losartan to 25mg daily and monitor BP response - may be able to d/c - goal to keep < 135/85 Sep, Chronic venous insufficiency (ICD-10 - I87.2) Avoid salt and elevate lower extremities, support stockings, inspect legs and feet daily for blisters and ulcerations. Sep, Overweight (ICD-10 - E66.3) This patient has been instructed on a low-fat, high-fiber diet. They are instructed to reduce calories, portion sizes and snacks. It is recommended that they exercise for 30 minutes, 3-5 times weekly. Sep, Cervical spondylosis (ICD-10 - M47.812) ROM exercises, heat/ice and Tylenol Sep, Acute bronchitis due to other specified organisms (ICD-10 - J20.8) Instructed to use Robitussin or Mucinex for cough, saline or Flonase NS for congestion, Tylenol for pain and fever. [facility] Other Evaluation note 03-14-2022 Note Date & Type Note Facility 03-14-2022 Evaluation note Encounter Date Diagnosis Assessment Notes Mar, Essential (primary) hypertension (ICD-10 - I10) This patient is instructed to consume a healthy, low-fat, low-salt diet. They are also encouraged to continue exercise to achieve/mainta in a normal BMI. Mar, Wellness examination (ICD-10 - Z00.00) Healthy diet and exercise. Reviewed age-appropriat e preventive testing recommended. Mar, Chronic venous insufficiency (ICD-10 - I87.2) Avoid salt and elevate lower extremities, support stockings, inspect legs and feet daily for blisters and ulcerations. Mar, Obesity (ICD-10 - E66.9) This patient has been instructed on a low-fat, high-fiber diet. They are instructed to reduce calories, portion sizes and snacks. It is recommended that they exercise for 30 minutes, 3-5 times weekly. Mar, Cervical spondylosis (ICD-10 - M47.812) ROM excercises, heat/ice and Flexeril. Tylenol as needed but avoid NSAIDs due to adverse effects w/ BP and CVI [facility] Other Evaluation note Note Date & Type Note Facility Evaluation note No Information [facility] Other History general Narrative - Reported Note Date & Type Note Facility History general Narrative - Reported Type Medical History Wellness examination Medical History Hormone replacement therapy, postmenopausal Medical History Other specified dmitriy nflammatory disorders of vagina Medical History Obesity Medical History History of hysterectomy Medical History Cervical spondylosis Medical History Chronic venous insufficiency Medical History Essential hypertension Medical History Sprain of deltoid li gament of right ankle, initial encounter Surgical History colonoscopy Surgical History foraminotomy of lumbar spine Surgical History total abdominal hyst erectomy and bilateral salipno-oophorectomy Surgical History multiple back surgeries Hospitalization History see surgical history [facility] Other History general Narrative - Reported Note Date & Type Note Facility History general Narrative - Reported Type Medical History Wellness examination Medical History Hormone replacement therapy, postmenopausal Medical History Other specified dmitriy nflammatory disorders of vagina Medical History Obesity Medical History History of hysterectomy Medical History Cervical spondylosis Medical History Chronic venous insufficiency Medical History Essential hypertension Medical History Sprain of deltoid li gament of right ankle, initial encounter Surgical History colonoscopy Surgical History foraminotomy of lumbar spine Surgical History total abdominal hyst erectomy and bilateral salipno-oophorectomy Surgical History Lumbar surgeries, discectomy/fu conrado x 4 Hospitalization History see surgical history [facility] Other Summary Purpose Family History No Family History Records FoundNo Family History Records FoundNo Family History Records FoundNo Family History Records FoundNo Family History Records Found Advance Directives No Advanced Directives Records FoundNo Advanced Directives Records FoundNo Advanced Directives Records FoundNo Advanced Directives Records FoundNo Advanced Directives Records Found Hospital Course Note NAME: LIBBY NINO MR #: [id number] ADMIT DATE: 06/25/2018 DISCHARGE DATE: 06/28/2018 DISCHARGE SUMMARY HISTORY OF PRESENT ILLNESS: The patient is a 47-year-old female, who is admitted for lumbar decompressive laminectomy. For further details of her admitting history, past medical and surgical history, please refer to admitting surgical assessment. HOSPITAL COURSE: The patient was admitted with a diagnosis of right foraminal stenosis, L5 and S1 radiculopathy, medial facet nerve compression. Surgical procedure risks, benefits, complications, and alternatives were discussed with the patient and consent was obtained to perform surgery. Lysis of adhesions, right L4 and L5-S1 with laminectomy, foraminotomy of right L5 and S1 were performed on 06/25/2018 under general endotracheal anesthesia. She tolerated the procedure well and recovered satisfactorily. Postoperatively, she was complaining of minimal pain around surgical site, which was well controlled with pain medication. She was al (more content not included)... Additional Source Comments INFORMATION SOURCE (unrecogn ized section and content) DATE CREATED AUTHOR 07/04/2018 [facility] DATE CREATED AUTHOR AUTHOR'S ORGANIZ ATION 09/25/2018 [facility] DATE CREATED AUTHOR AUTHOR'S ORGANIZ ATION 05/02/2021 [facility] DATE CREATED AUTHOR AUTHOR'S ORGANIZ ATION 03/17/2022 [facility] DATE CREATED AUTHOR AUTHOR'S ORGANIZ ATION 02/28/2023 [facility] EPIC REASON FOR VISIT (unrecogniz ed section and content) 6 MONTH FOLLOW UP6 month Fol low upRefillsWellness examNo Information FOR RECORDS PERTAINING TO PATIENTS WHO ARE OR HAVE BEEN ENROLLED IN A CHEMICAL DEPENDENCY/SUBSTANCEABUSE PROGRAM, SOME INFORMATION MAY BE OMITTED. This clinical summary was aggregated from multiple sources. Caution should be exercised in using it in the provision of clinical care. This summary normalizes information from multiple sources, and as a consequence, information in this document may materially change the coding, format and clinical context of patient data. In addition, data may be omitted in some cases. CLINICAL DECISIONS SHOULD BE BASED ON THE PRIMARY CLINICAL RECORDS. [employer] [facility]. provides no warranty or guarantee of the accuracy or completeness of information in this document.
--- NOTE | 2023-03-29 06:42 | MR_ITS ---
[address] [address] Patient Name: LIBBY GARCIA MRN: [id number] date: 1970 Sex: F Assigned Patient Location: MRI Current Patient Location: Accession/Order Number: [id number] Exam Date: 03/29/2023 07:00 Report Date: 04/01/2023 10:03 At the request of: BRAN ROLLE Procedure: MR abdomen wo con EXAMINATION: MR abdomen wo con, 03/29/2023 7:00 AM EST HISTORY: Weight Loss R63.4, Nausea, Family History Of Pancreatic Canc COMPARISON: None. TECHNIQUE: Multisequence multiplanar MRI of the abdomen was performed without the use of IV contrast. MRCP sequences were additionally obtained. FINDINGS: LOWER THORAX: Grossly unremarkable. LIVER: Normal in size and configuration. Signal drop out on in phase chemical shift imaging suggests parenchymal iron deposition. Evaluation for focal lesions is limited without the use of IV contrast, noting few areas of mild parenchymal heterogeneity on T2 and in phase chemical shift imaging potentially relating to areas of iron sparing. BILE DUCTS: No intrahepatic or extrahepatic bile duct dilation. GALLBLADDER: Normal. PANCREAS: Normal. No main pancreatic duct dilation. SPLEEN: Normal. No significant iron deposition. ADRENAL GLANDS: Normal. KIDNEYS/URETERS: No hydroureteronephrosis. No suspicious renal mass. VISUALIZED BOWEL: Nondilated. PERITONEUM/RETROPERITONEUM: No ascites or fluid collection. LYMPH NODES: No abdominal lymphadenopathy. VESSELS: No abdominal aortic aneurysm. ABDOMINAL WALL: Procedure change in the posterior paraspinal soft tissues. BONES: No suspicious osseous lesions are seen . Susceptibility artifact from patient's posterior lumbar fixation hardware. MR/MR abdomen wo con IMPRESSION: 1. Hepatic parenchymal iron deposition; mild parenchymal heterogeneity could relate to areas of iron sparing; evaluation for focal lesions is limited without the use of IV contrast. 2. Unremarkable MR appearance of the pancreas. Electronically authenticated by: MALDONADO PECK Date: 04/01/2023 10:03
[2023-03-29 07:51] LABS: Basophils Percent Auto 0.8 % (0.2-2.0); Eosinophils Absolute Auto 0.1 10^3/uL (0.0-0.7); Eosinophils Percent Auto 1.3 % (0.9-7.0); Hematocrit 40.8 % (36.0-48.0); Hemoglobin 14.1 g/dL (12.0-16.0); Immature Granulocytes Abs Auto 0.01 10^3/uL (0.00-0.03); Immature Granulocytes Pct Auto 0.2 % (0.0-0.5); Lymphocytes Absolute Auto 1.8 10^3/uL (1.2-3.8); Lymphocytes Percent Auto 38.1 % (20.5-60.0); Mean Corpuscular HGB Conc 34.6 g/dL (29.9-35.2); Mean Corpuscular Hemoglobin 32.7 pg (26.7-34.0); Mean Corpuscular Volume 94.7 fL (81.0-99.0); Mean Platelet Volume 11.2 fL (9.5-13.5); Monocytes Absolute Auto 0.4 10^3/uL (0.3-0.8); Monocytes Percent Auto 8.8 % (1.7-12.0); Neutrophils Absolute Auto 2.4 10^3/uL (1.4-6.5); Neutrophils Percent Auto 50.8 % (43.0-75.0); Platelet Count 224 10^3/uL (150-450); Red Blood Count 4.31 10^6/uL (4.20-5.40); Red Cell Distribution Width 11.6 % (11.0-15.0); White Blood Count 4.8 10^3/uL (4.0-11.0)
[2023-03-29 08:19] LABS: Alanine Aminotransferase 33 U/L (14-59); Albumin Globulin Ratio 1.2; Albumin Level 3.8 g/dL (3.4-5.0); Alkaline Phosphatase 42 U/L (46-116); Anion Gap 11.1; Aspartate Amino Transferase 24 U/L (15-37); BUN Creatinine Ratio 30.9; Bilirubin Total 1.3 mg/dL (0.2-1.0); Calcium 9.4 mg/dL (8.5-10.1); Carbon Dioxide 32.8 mmol/L (21.0-32.0); Chloride 104 mmol/L (98-107); Chol HDL Ratio 2.9; Cholesterol 244 mg/dL (<=200); Estimated GFR (African America >60 (>=60); Estimated GFR (Non-African Ame >60 (>=60); Globulin 3.2 g/dL; Glucose 100 mg/dL (74-106); HDL Cholesterol 84 mg/dL (40-60); Potassium 4.9 mmol/L (3.5-5.1); Sodium 143 mmol/L (136-145); Thyroid Stimulating Hormone 1.327 uIU/mL (0.358-3.740); Triglycerides 59 mg/dL (<=150); VLDL CHOLESTEROL 11.8 mg/dL
== END 2023-03-29 06:38 | disposition home or self-care (01) ==
LOC: MRI 06:37
PROVIDERS: PCP Internal Medicine; Visit Provider Internal Medicine
DX: Z00.00 Encounter for general adult medical examination without abnormal findings (principal); R63.4 Abnormal weight loss; R11.0 Nausea; Z80.0 Family history of malignant neoplasm of digestive organs
CPT/HCPCS: 36415; 74181; 80053; 80061; 84443; 85025

== ENCOUNTER 2023-07-02 07:29 | Outpatient (RCR) | payer OTHER, SELFPAY ==
[2023-07-03 04:09] LABS: CA 19-9 3 U/mL (0-35)
== END 2023-07-02 23:59 | disposition home or self-care (01) ==
LOC: INF 07:29
PROVIDERS: PCP Internal Medicine; Visit Provider Internal Medicine Hematology & Oncology
DX: Z15.09 Genetic susceptibility to other malignant neoplasm (principal); Z80.9 Family history of malignant neoplasm, unspecified; Z80.8 Family history of malignant neoplasm of other organs or systems; Z90.710 Acquired absence of both cervix and uterus; Z80.3 Family history of malignant neoplasm of breast; Z98.1 Arthrodesis status; Z79.890 Hormone replacement therapy
CPT/HCPCS: 36415; 82728; 83540; 83550; 86301; G0463

== ENCOUNTER 2023-07-03 16:20 | Outpatient (RCR) | payer OTHER, SELFPAY | END 2023-11-11 13:35 | disposition home or self-care (01) | LOC: PT 16:20 | PROVIDERS: PCP Internal Medicine; Visit Provider Internal Medicine | DX: M54.50 Low back pain, unspecified (principal) | CPT/HCPCS: 20561; 97010; 97014; 97035; 97110; 97112; 97140; 97162; 97164 ==

== ENCOUNTER 2023-07-23 07:44 | Outpatient (RCR) | payer OTHER, SELFPAY | END 2023-08-02 23:59 | disposition home or self-care (01) | LOC: INF 07:44 | PROVIDERS: PCP Internal Medicine; Visit Provider Internal Medicine Hematology & Oncology | DX: Z15.09 Genetic susceptibility to other malignant neoplasm (principal); Z90.710 Acquired absence of both cervix and uterus; Z80.8 Family history of malignant neoplasm of other organs or systems | CPT/HCPCS: G0463 ==

== ENCOUNTER 2023-08-15 09:23 | Outpatient (OUT) | payer OTHER, SELFPAY ==
--- NOTE | 2023-08-15 09:27 | MM_ITS ---
Patient Name: LIBBY GARCIA MR#: [id number] : 1970 Exam Date: 08/15/2023 Ordering Doctor: DR Julio Hinojosa . RADIOLOGY REPORT PROCEDURE: MM TOMOSYNTHESIS DIAGNOSTIC BI COMPARISON: MM TOMOSYNTHESIS SCREENING BI, 02/22/2023. INDICATIONS: Breast Lump Calculator Name NCI Breast Cancer Risk Assessment Tool 5 Year Breast Cancer Risk 0.90% Lifetime Breast Cancer Risk 7.10% Personal Breast Cancer No Personal Ovarian Cancer No Treatments None Family Cancers Mother with melanoma cancer at age 41. LOCATION: [facility] BREAST COMPOSITION: The breasts are heterogeneously dense,which may obscure small masses. FINDINGS: DIAGNOSTIC CATEGORY 2--BENIGN FINDING. NO CHANGE FROM COMPARISON. RIGHT BREAST: No significant suspicious finding. LEFT BREAST: No significant suspicious finding. RECOMMENDATIONS: ROUTINE MAMMOGRAM AND CLINICAL EVALUATION IN 12 MONTHS. PLEASE NOTE: A NORMAL MAMMOGRAM DOES NOT EXCLUDE THE POSSIBILITY OF BREAST CANCER. A CLINICALLY SUSPICIOUS PALPABLE LUMP SHOULD BE BIOPSIED. Dictated by: Preet Triana MD on 08/15/2023 at 10:04 Approved by: Preet Triana MD on 08/15/2023 at 10:06
--- OUTSIDE RECORDS SUMMARY | 2023-08-15 09:41 | XMS_ITS | CCD ---
Author Organization [facility] Team Providers Care Personal Banking Assistant Name Role Phone AQUILINO, DR SOTOMAYOR Admitting Unavailable AQUILINO, DR SOTOMAYOR Attending Unavailable AQUILINO, DR SOTOMAYOR Primary Care Unavailable AQUILINO, DR SOTOMAYOR Consulting Unavailable JOSHUA, DR ORTIZ Admitting Unavailable JOSHUA, DR ORTIZ Attending Unavailable AQUILINO, DR SOTOMAYOR Primary Care Unavailable [place], DR MARCELINA Kennedy Consulting Unavailable JOSHUA, DR ORTIZ Consulting Unavailable JOSHUA, DR ORTIZ Admitting Unavailable JOSHUA, DR ORTIZ Attending Unavailable AQUILINO, DR SOTOMAYOR Primary Care Unavailable JOSHUA, DR ORTIZ Consulting Unavailable ZIEBBRENT, DR CRISTINE Garnica Consulting Unavailable Demario Rolle Unavailable REGGIE RAMOS Attending Unavailable ANGEL LEWIS Attending Unavailable ANGEL LEWIS Attending Unavailable Allergies Allergy Classification Reported Allergen(s) Allergy Type Date of Onset Reaction(s) Facility (2 sources) patient allergy list reviewed by nurse or physicia Propensity to adverse reactions 8 Comment:Done [facility] Other (2 sources) Allergies Reconciled Propensity to adverse reactions Unknown [facility] Other Medications Current Medications Medication Drug Class(es) Dates Sig (Normalized) Sig (Original) cyclobenzaprine hydrochloride 10 mg oral tablet (8 sources) Muscle Relaxant Start: 3 Cyclobenzaprine HCl 10 MG 1 Orally Once a day for 30 day(s) Mar, Active estrogens, conjugated (senior care) 1.25 mg oral tablet (7 sources) Estrogen take 1 tablet by mouth every twenty-four hours Premarin 1.25 MG 1 tablet Orally Once a day Active hydroCHLOROthiazide 12.5 mg oral capsule (8 sources) Thiazide Diuretic Start: 3 take 1 capsule by mouth every twenty-four hours hydroCHLOROthiazide 12.5 MG 1 tablet in the morning Orally Once a day for 90 days Mar, Active Multivitamin preparation (7 sources) take 1 tablet by mouth once daily Multivitamin - 1 tablet Orally Once a day Active Completed/Discontinued Medications Medication Drug Class(es) Dates Sig (Normalized) Sig (Original) azithromycin 250 mg oral tablet (6 sources) Macrolide Antimicrobial Start: 09-07-2022 Azithromycin 250 MG as directed Orally daily for 5 days Sep, Not-Taking/PRN losartan potassium 50 mg oral tablet (8 sources) Angiotensin 2 Receptor Osiel Start: 03-12-2022 take 1 tablet by mouth every twenty-four hours Losartan Potassium 50 MG 1 tablet Orally Once a day for 90 days Mar, Not-Taking/PRN Problems Active Problems Problem Classification Problem Date Documented Date Episodic/Chronic Essential hypertension (18 sources) Essential hypertension; Translations: [Essential (primary) hypertension] Chronic Immunizations and screening for infectious disease (1 source) Encounter for screening for human papillomavirus (HPV); Translations: [ENC SCREENING HUMAN PAPILLOMAVIRUS] Onset: 02-10-2022 Episodic Nausea and vomiting (1 source) Nausea Episodic Other congenital anomalies (2 sources) Congenital spondylolysis of lumbosacral region; Translations: [Congenital spondylolysis, lumbosacral region] Onset: 11-19-2017 Chronic Other diseases of veins and lymphatics (9 sources) Peripheral venous insufficiency; Translations: [Venous insufficiency (chronic) (peripheral)] Episodic Other diseases of veins and lymphatics (3 sources) Venous insufficiency (chronic) (peripheral) Episodic Other female genital disorders (7 sources) Noninflammatory disorder of the vagina; Translations: [Other specified noninflammatory disorders of vagina] Episodic Other nutritional; endocrine; and metabolic disorders (9 sources) Obesity; Translations: [Obesity, unspecified] Chronic Other [...] Spondylosis; intervertebral disc disorders; other back problems (16 sources) Cervical spondylosis; Translations: [Spondylosis without myelopathy or radiculopathy, cervical region] Chronic Sprains and strains (7 sources) Sprain of deltoid ligament of ankle; [...] 03-17-2022 BASO # 0.0 103/ul Normal 0.0-0.1 [facility] Comment on above: Performed By: #### C BC #### [facility] [address] [address] [address] Dong Mack Basophils/100 WBC (Bld) 0.7 % Normal 0.2-2.0 [facility] Comment on above: Performed By: #### C BC #### [facility] [address] [place] [address] Dr. Dong Mack EO # 0.1 103/ul Normal 0.0-0.7 [facility] Comment on above: Performed By: #### C BC #### [facility] [address] [address] [address] Dong Mack Eosinophils/100 WBC (Bld) 2.2 % Normal 0.9-7.0 [facility] Comment on above: Performed By: #### C BC #### [facility] [address] [place] [address] Dr. Dong Mack Erythrocyte distribution width (RBC) [Ratio] 11.8 % Normal 11.0-15.0 [facility] Comment on above: Performed By: #### C BC #### [facility] [address] [place] [address] Dr. Dong Mack Hematocrit (Bld) [Volume fraction] 39.6 % Normal 36.0-48.0 [facility] Comment on above: Performed By: #### C BC #### [facility] [address] [place] [address] Dr. Dong Mack Hemoglobin (Bld) [Mass/Vol] 13.9 g/dL Normal 12.0-16.0 [facility] Comment on above: Performed By: #### C BC #### [facility] [address] [place] [address] Dr. Dong Mack IG # 0.02 10e3/ul Normal 0.00-0.03 [facility] Comment on above: Performed By: #### C BC #### [facility] [address] [place] [address] Dr. Dong Mack IG % 0.4 % Normal 0.0-0.5 [facility] Comment on above: Performed By: #### C BC #### [facility] [address] [place] [address] Dr. Dong Mack LYMPH # 2.3 103/ul Normal 1.2-3.8 [facility] Comment on above: Performed By: #### C BC #### [facility] [address] [place] [address] Dr. Dong Mack Lymphocytes/100 WBC (Bld) 42.7 % Normal 20.5-60.0 [facility] Comment on above: Performed By: #### C BC #### [facility] [address] [place] [address] Dr. Dong Mack MANUAL DIFF REQ NO Normal [facility] Comment on above: Performed By: #### C BC #### [facility] [address] [place] [address] Dr. Dong Mack MCH (RBC) [Entitic mass] 31.4 pg Normal 26.7-34.0 [facility] Comment on above: Performed By: #### C BC #### [facility] [address] [place] [address] Dr. Dong Mack MCHC (RBC) [Mass/Vol] 35.1 g/dL Normal 29.9-35.2 [facility] Comment on above: Performed By: #### C BC #### [facility] [address] [place] [address] Dr. Dong Mack MCV (RBC) [Entitic vol] 89.4 fL Normal 81.0-99.0 [facility] Comment on above: Performed By: #### C BC #### [facility] [address] [place] [address] Dr. Dong Mack MONO # 0.4 103/ul Normal 0.3-0.8 [facility] Comment on above: Performed By: #### C BC #### [facility] [address] [address] [address] Dong Mack Monocytes/100 WBC (Bld) 6.9 % Normal 1.7-12.0 [facility] Comment on above: Performed By: #### C BC #### [facility] [address] [place] [address] Dr. Dong Mack NEUT # 2.5 103/ul Normal 1.4-6.5 [facility] Comment on above: Performed By: #### C BC #### [facility] [address] [place] [address] Dr. Dong Mack Neutrophils/100 WBC (Bld) 47.1 % Normal 43.0-75.0 [facility] Comment on above: Performed By: #### C BC #### [facility] [address] [place] [address] Dr. Dong Mack Platelet mean volume (Bld) [Entitic vol] 10.7 fL Normal 9.5-13.5 [facility] Comment on above: Performed By: #### C BC #### [facility] [address] [place] [address] Dr. Dong Mack PLT 280 103/ul Normal 150-450 [facility] Comment on above: Performed By: #### C BC #### [facility] [address] [place] [address] Dr. Dong Mack RBC 4.43 106/ul Normal 4.20-5.40 [facility] Comment on above: Performed By: #### C BC #### [facility] [address] [place] [address] Dr. Dong Mack WBC 5.3 103/ul Normal 4.0-11.0 [facility] Comment on above: Performed By: #### C BC #### [facility] [address] [place] [address] Dr. Dong Mack LIPID PROFILEon 03-17-2022 CHOL-HDL RATIO NORM SEE BELOW Normal [facility] Comment on above: Result Comment: 3.3 - 4.4 LOW RISK 4.4 - 7.1 AVERAGE RISK 7.1 - 11.0 MODERATE RISK >11.0 HIGH RISK Performed By: #### L IPID, TSH, CMP #### [facility] [address] [address] [address] Dong Mack Cholesterol [Mass/Vol] 254 mg/dL Critically high <=200 [facility] Comment on above: Performed By: #### L IPID, TSH, CMP #### [facility] [address] [address] [address] Dong Mack Cholesterol in HDL [Mass/Vol] 72 mg/dL Critically high 40-60 [facility] Comment on above: Performed By: #### L IPID, TSH, CMP #### [facility] [address] [place] [address] Dr. Dong Mack Cholesterol in LDL [Mass/Vol] 152.4 mg/dL Normal [facility] Comment on above: Performed By: #### L IPID, TSH, CMP #### [facility] [address] [place] [address] Dr. Dong Mack Cholesterol.total/ Cholesterol in HDL [Mass ratio] 3.5 {ratio} Normal [facility] Comment on above: Performed By: #### L IPID, TSH, CMP #### [facility] [address] [place] [address] Dr. Dong Mack HDL NORMAL > or = 60 mg/dl - LO W CARDIOVASCULAR RISK <40 mg/dl - HIGH CARDIOVASCULAR RISK Normal [facility] Comment on above: Performed By: #### L IPID, TSH, CMP #### [facility] [address] [place] [address] Dr. Dong Mack LDL CALC NORMAL SEE BELOW Normal [facility] Comment on above: Result Comment: <100 mg/dl OPTIMAL 100 - 129 mg/dl NEAR OR ABOVE OPTIMAL 130 - 159 mg/dl BORDERLINE HIGH 160 - 189 mg/dl HIGH >190 mg/dl VERY HIGH Performed By: #### L IPID, TSH, CMP #### [facility] [address] [place] [address] Dr. Dong Mack Triglyceride [Mass/Vol] 148 mg/dL Normal <=150 [facility] Comment on above: Performed By: #### L IPID, TSH, CMP #### [facility] [address] [place] [address] Dr. Dong Mack VLDL CALC 29.6 mg/dL Normal [facility] Comment on above: Performed By: #### L IPID, TSH, CMP #### [facility] [address] [place] [address] Dr. Dong Mack PROF 14(COMP METB)on 023 Albumin [Mass/Vol] 3.8 g/dL Normal 3.4-5.0 [facility] Comment on above: Performed By: #### L IPID, TSH, CMP #### [facility] [address] [place] [address] Dr. Dong Mack Albumin/Globulin [Mass ratio] 1.2 {ratio} Normal [facility] Comment on above: Performed By: #### L IPID, TSH, CMP #### [facility] [address] [place] [address] Dr. Dong Mack ALP [Catalytic activity/Vol] 52 U/L Normal 46-116 [facility] Comment on above: Performed By: #### L IPID, TSH, CMP #### [facility] [address] [place] [address] Dr. Dong Mack ALT [Catalytic activity/Vol] 27 U/L Normal 14-59 [facility] Comment on above: Performed By: #### L IPID, TSH, CMP #### [facility] [address] [place] [address] Dr. Dong Mack Anion gap [Moles/Vol] 8.1 mmol/L Normal [facility] Comment on above: Performed By: #### L IPID, TSH, CMP #### [facility] [address] [place] [address] Dr. Dong Mack AST [Catalytic activity/Vol] 22 U/L Normal 15-37 [facility] Comment on above: Performed By: #### L IPID, TSH, CMP #### [facility] [address] [place] [address] Dr. Dong Mack Bilirubin [Mass/Vol] 0.7 mg/dL Normal 0.2-1.0 [facility] Comment on above: Performed By: #### L IPID, TSH, CMP #### [facility] [address] [place] [address] Dr. Dong Mack Calcium [Mass/Vol] 9.2 mg/dL Normal 8.5-10.1 [facility] Comment on above: Performed By: #### L IPID, TSH, CMP #### [facility] [address] [address] [address] Dong Mack Chloride [Moles/Vol] 103 mmol/L Normal 98-107 [facility] Comment on above: Performed By: #### L IPID, TSH, CMP #### [facility] [address] [place] [address] Dr. Dong Mack CO2 [Moles/Vol] 33.9 mmol/L Critically high 21.0-32.0 [facility] Comment on above: Performed By: #### L IPID, TSH, CMP #### [facility] [address] [place] [address] Dr. Dong Mack Creatinine [Mass/Vol] 0.66 mg/dL Normal 0.55-1.02 [facility] Comment on above: Performed By: #### L IPID, TSH, CMP #### [facility] [address] [place] [address] Dr. Dong Mack EGFR-AF PALESTINIAN >60 Normal >=60 [facility] Comment on above: Performed By: #### L IPID, TSH, CMP #### [facility] [address] [place] [address] Dr. Dong Mack EGFR-NON AF PALESTINIAN >60 Normal >=60 [facility] Comment on above: Performed By: #### L IPID, TSH, CMP #### [facility] [address] [place] [address] Dr. Dong Mack Globulin (S) [Mass/Vol] 3.3 g/dL Normal [facility] Comment on above: Performed By: #### L IPID, TSH, CMP #### [facility] [address] [address] [address] Dong Mack Glucose [Mass/Vol] 94 mg/dL Normal 74-106 [facility] Comment on above: Performed By: #### L IPID, TSH, CMP #### [facility] [address] [address] [address] Dong Mack Potassium [Moles/Vol] 4.0 mmol/L Normal 3.5-5.1 [facility] Comment on above: Performed By: #### L IPID, TSH, CMP #### [facility] [address] [place] [address] Dr. Dong Mack Protein [Mass/Vol] 7.1 g/dL Normal 6.4-8.2 [facility] Comment on above: Performed By: #### L IPID, TSH, CMP #### [facility] [address] [place] [address] Dr. Dong Mack Sodium [Moles/Vol] 141 mmol/L Normal 136-145 [facility] Comment on above: Performed By: #### L IPID, TSH, CMP #### [facility] [address] [place] [address] Dr. Dong Mack Urea nitrogen [Mass/Vol] 13.0 mg/dL Normal 7.0-18.0 [facility] Comment on above: Performed By: #### L IPID, TSH, CMP #### [facility] [address] [place] [address] Dr. Dong Mack Urea nitrogen/Creatinin e [Mass ratio] 19.7 mg/mg Normal [facility] Comment on above: Performed By: #### L IPID, TSH, CMP #### [facility] [address] [place] [address] Dr. Dong Mack TSHon 03-17-2022 TSH 1.223 uIU/mL Normal 0.358-3.740 [facility] Comment on above: Performed By: #### L IPID, TSH, CMP #### [facility] [address] [place] [address] Dr. Dong Mack PAP ACOG PANEL 2: 30 to 65on 02-13-2022 . . Normal [facility] Comment on above: Result Comment: Perf ormed at: WB Performed By: #### [id number] #### [facility] [address] [place] [address] Dr. Dong Mack Age Gdln ACOG Testing 30-65 Normal [facility] Comment on above: Performed By: #### [id number] #### [facility] [address] [address] [address] Dong Mack DIAGNOSIS: Comment Normal [facility] Comment on above: Result Comment: NEGA TIVE FOR INTRAEPITHELIAL LESION OR MALIGNANCY. Performed at: WB Performed By: #### [id number] #### [facility] [address] [place] [address] Dr. Dong Mack HPV Aptima Negative Normal Negative [facility] Comment on above: Result Comment: This nucleic acid amplification test detects fourteen high-risk HPV types (16,18,31,33,35,39,45,51,52,56,58,59,66,68) without differentiation. Performed at: =G Performed By: #### [id number] #### [facility] [address] [place] [address] Dr. Dong Mack HPV Genotype Reflex Comment Normal [facility] Comment on above: Result Comment: Crit eria not met, HPV Genotype not performed. Performed at: WB Performed By: #### [id number] #### [facility] [address] [place] [address] Dr. Dong Mack Methodology: Comment Normal [facility] Comment on above: Result Comment: This liquid based ThinPrep(R) pap test was screened with the use of an image guided system. Performed at: WB Performed By: #### [id number] #### [facility] [address] [place] [address] Dr. Dong Mack Note: Comment Normal [facility] Comment on above: Result Comment: The Pap smear is a screening test designed to aid in the detection of premalignant and malignant conditions of the uterine cervix. It is not a diagnostic procedure and should not be used as the sole means of detecting cervical cancer. Both false-positive and false-negative reports do occur. . Performed at: WB Performed By: #### [id number] #### [facility] [address] [place] [address] Dr. Dong Mack Performed by: Comment Normal [facility] Comment on above: Result Comment: Nithya Keen, Apparel Rental Clerk Performed at: WB Performed By: #### [id number] #### [facility] [address] [address] [address] Dong Mack Specimen adequacy: Comment Normal [facility] Comment on above: Result Comment: Sati sfactory for evaluation. Endocervical and/or squamous metaplastic cells (endocervical component) are present. Performed at: WB Performed By: #### [id number] #### [facility] [address] [place] [address] Dr. Dong Mack XR DEXA BONE DENSITYon [...] POPE Date: 2022-02-13 08:43 Normal [facility] MAMM SCREEN 3D RAMEZ CADon 02-05-2022 MG MAMM SCREEN 3D RAMEZ CAD Patient: LIBBY NINO Exam Date: 02/05/2022 : 1970 Gender:F Ordering : DR ANGEL LEWIS . Admission #: [id number] Family : DR DEMARIO ROLLE D.O. Order #: [id number] CLICK HERE TO VIEW EXAM RADIOLOGY REPORT [...] melanoma cancer at age 41. LOCATION: [facility] BREAST COMPOSITION: Heterogeneously dense,which may obscure [...] MD on 02/05/2022 at 09:50 Normal [facility] COVID-19 Antigenon 2 COVID-19 Antigen Healthcare [...] be performed. Negative results do not rule Acrli Disclaimer out COVID-19 and should not be [...] its performance Carli Disclaimer characteristic determined by [employer] and Carli Disclaimer validated at [facility]. This Carli Disclaimer test has [...] Carli Disclaimer Emergency Use Authorization for Coronavirus Acrli Disclaimer iseas during the Public Health Emergency) Carli Disclaimer [...] is terminated or revoked sooner. PERFORMED BY: [facility] [place] [address] PATHOLOGIST [employer] SALES REPRESENTATIVE WAQAS DÍAZ M.D. [facility] Comment on above: Performed By: #### C OVID-19 CARLI, SOFIANEG #### [facility] [address] [id number] [facility] Carli Ag Negativeon 04-25-19 Carli Ag Negative Negative Normal Negative [facility] Comment on above: Result Comment: This is a duplicate Carli SARS Antigen (ANTONIO) result to be used for statistical tracking purpose only. PERFORMED BY: [facility] [address] [facility] [place] [address] PATHOLOGIST [employer] SALES REPRESENTATIVE WAQAS DÍAZ M.D. Performed By: #### C OVID-19 CARLI, SOFIANEG #### [facility] [address] [id number] [facility] LUMBAR SPINE 2 OR 3 VIEWSon 09-18-2018 LUMBAR SPINE 2 OR 3 VIEWS STUDY: LUMBAR SPINE 2 OR 3 VIEWS; 09/18/2018 10:45 am INDICATION: PAIN. COMPARISON: Intraoperative radiographs from 06/25/2018 ACCESSION NUMBER(S): [id number] ORDERING CLINICIAN: Emely Puckett FINDINGS: Interbody graft at L3-4. Posterior metallic fusion hardware with laminectomy defects L4-S1. Grade 2-3 anterolisthesis L5-S1 unchanged. No new fracture subluxation. No new disc height loss. Degenerative changes appear similar prior exam. IMPRESSION: L3-4 and L4-S1 fusion changes. Normal [facility] BASIC MET PANELon 06-26-2018 Anion gap [Moles/Vol] 8 mmol/L Normal 6-18 [facility] Comment on above: Order Comment: CONSE RVATION Performed By: #### L 500.76832, L500.89448, L500.24500 #### Test performed at: [address] [address] Calcium [Mass/Vol] 8.3 mg/dL Low 8.5-10.1 [facility] Comment on above: Order Comment: CONSE RVATION Performed By: #### L 500.69113, L500.07353, L500.12922 #### Test performed at: [address] [address] Chloride [Moles/Vol] 103 mmol/L Normal 98-107 [facility] Comment on above: Order Comment: CONSE RVATION Performed By: #### L 500.13385, L500.58713, L500.64318 #### Test performed at: [address] [address] CO2 [Moles/Vol] 30 mmol/L Normal 21-32 [facility] Comment on above: Order Comment: CONSE RVATION Performed By: #### L 500.73885, L500.80825, L500.80129 #### Test performed at: [address] [address] Creatinine [Mass/Vol] 0.620 mg/dL Normal 0.550-1.020 [facility] Comment on above: Order Comment: CONSE RVATION Performed By: #### L 500.98861, L500.54906, L500.60801 #### Test performed at: [address] [address] Glucose [Mass/Vol] 139 mg/dL High 70-99 [facility] Comment on above: Order Comment: CONSE RVATION Result Comment: Fast ing GLUCOSE reference range has been updated per (ADA) [place] [employer]'s recommendation. 05/27/2018 Performed By: #### L 500.25461, L500.10366, L500.47141 #### Test performed at: [address] [address] OSM 284 mosm/kg Normal 270-300 [facility] Comment on above: Order Comment: CONSE RVATION Performed By: #### L 500.04695, L500.28125, L500.72595 #### Test performed at: [address] [address] Potassium [Moles/Vol] 4.3 mmol/L Normal 3.5-5.1 [facility] Comment on above: Order Comment: CONSE RVATION Performed By: #### L 500.63990, L500.16243, L500.89050 #### Test performed at: [address] [address] Sodium [Moles/Vol] 137 mmol/L Normal 136-145 [facility] Comment on above: Order Comment: CONSE RVATION Performed By: #### L 500.71466, L500.78521, L500.36399 #### Test performed at: [address] [address] Urea nitrogen [Mass/Vol] 5 mg/dL Low 7-18 [facility] Comment on above: Order Comment: CONSE RVATION Performed By: #### L 500.68894, L500.22834, L500.47172 #### Test performed at: [address] [address] CBC W/DIFFon 06-26-2018 BASO ABS 0.0 K/uL Normal 0.0-0.2 [facility] Comment on above: Order Comment: CONSE RVATION Performed By: #### L 200.94530 #### Test performed at: [address] [address] Basophils/100 WBC (Bld) 0.1 % Normal [facility] Comment on above: Order Comment: CONSE RVATION Performed By: #### L 200.20821 #### Test performed at: [address] [address] EOS ABS 0.0 K/uL Normal 0.0-0.5 [facility] Comment on above: Order Comment: CONSE RVATION Performed By: #### L 200.30390 #### Test performed at: [address] [address] Eosinophils/100 WBC (Bld) 0.0 % Normal [facility] Comment on above: Order Comment: CONSE RVATION Performed By: #### L 200.19367 #### Test performed at: [address] [address] IG % 0.5 % Normal [facility] Comment on above: Order Comment: CONSE RVATION Performed By: #### L 200.68444 #### Test performed at: [address] [address] IG ABS 0.07 K/uL High 0-0.05 [facility] Comment on above: Order Comment: CONSE RVATION Performed By: #### L 200.40833 #### Test performed at: [address] [address] Lymphocytes (Bld) [#/Vol] 1.2 10*3/uL Normal 1.2-3.5 [facility] Comment on above: Order Comment: CONSE RVATION Performed By: #### L 200.22112 #### Test performed at: [address] [address] Lymphocytes/100 WBC (Bld) 9.2 % Normal [facility] Comment on above: Order Comment: CONSE RVATION Performed By: #### L 200.76167 #### Test performed at: [address] [address] MONO ABS 0.8 K/uL Normal 0.0-1.0 [facility] Comment on above: Order Comment: CONSE RVATION Performed By: #### L 200.79572 #### Test performed at: [address] [address] Monocytes/100 WBC (Bld) 5.7 % Normal [facility] Comment on above: Order Comment: CONSE RVATION Performed By: #### L 200.13389 #### Test performed at: [address] [address] NEUTROPHIL ABS 11.4 K/uL High 1.4-6.[address] [facility] Comment on above: Order Comment: CONSE RVATION Performed By: #### L 200.92614 #### Test performed at: [address] [address] Neutrophils/100 WBC (Bld) 84.5 % Normal [facility] Comment on above: Order Comment: CONSE RVATION Performed By: #### L 200.04236 #### Test performed at: [address] [address] Erythrocyte distribution width (RBC) [Ratio] 11.5 % Normal 11.5-14.5 [facility] Comment on above: Order Comment: CONSE RVATION Performed By: #### L 200.59639 #### Test performed at: [address] [address] Hematocrit (Bld) [Volume fraction] 31.4 % Low 36.0-48.0 [facility] Comment on above: Order Comment: CONSE RVATION Performed By: #### L 200.82771 #### Test performed at: [address] [address] Hemoglobin (Bld) [Mass/Vol] 11.2 g/dL Low 12.0-15.0 [facility] Comment on above: Order Comment: CONSE RVATION Result Comment: Delt a: 14.1 on 06/12/18 Performed By: #### L 200.91468 #### Test performed at: [address] [address] MCH (RBC) [Entitic mass] 32.3 pg Normal 25.4-34.6 [facility] Comment on above: Order Comment: CONSE RVATION Performed By: #### L 200.97150 #### Test performed at: [address] [address] MCHC (RBC) [Mass/Vol] 35.7 g/dL Normal 31.5-36.5 [facility] Comment on above: Order Comment: CONSE RVATION Performed By: #### L 200.13748 #### Test performed at: [address] [address] MCV (RBC) [Entitic vol] 90.5 fL Normal 79.0-98.0 [facility] Comment on above: Order Comment: CONSE RVATION Performed By: #### L 200.14706 #### Test performed at: [address] [address] NRBC # 0.000 K/uL Normal 0-0.012 [facility] Comment on above: Order Comment: CONSE RVATION Performed By: #### L 200.29402 #### Test performed at: [address] [address] NRBC % 0.0 /100 WBC Normal 0-0.2 [facility] Comment on above: Order Comment: CONSE RVATION Performed By: #### L 200.75332 #### Test performed at: [address] [address] Platelet mean volume (Bld) [Entitic vol] 11.3 fL Normal 8.7-12.4 [facility] Comment on above: Order Comment: CONSE RVATION Performed By: #### L 200.19890 #### Test performed at: [address] [address] Platelets (Bld) [#/Vol] 208 10*3/uL Normal 140-440 [facility] Comment on above: Order Comment: CONSE RVATION Performed By: #### L 200.98718 #### Test performed at: [address] [address] RBC (Bld) [#/Vol] 3.47 10*6/uL Low 3.5-5.5 [facility] Comment on above: Order Comment: CONSE RVATION Performed By: #### L 200.84373 #### Test performed at: [place] [address] WBC (Bld) [#/Vol] 13.5 10*3/uL High 3.9-11.0 [facility] Comment on above: Order Comment: CONSE RVATION Result Comment: Delt a: 6.5 on 06/12/18 Performed By: #### L 200.02411 #### Test performed at: [place] [address] EST. CREAT CLRon 06-26-2018 Creatinine [Mass/Vol] 159.375 ML/MIN Normal [facility] Comment on above: Order Comment: CBN: YES [place]: MAIN Result Comment: This result is an ESTIMATED blood creatinine clearance value which is derived from the patient age, sex, weight, and previous blood creatinine result. Performed By: #### L 500.30171, L500.68510 #### Test performed at: [place] [address] GFR ESTIMATEon 06-26-2018 IF AMER > 60 Normal > 60 [facility] Comment on above: Order Comment: CBN: YES [place]: MAIN Result Comment: eGFR (Estimated GFR) Units of measure:mL/min/1.73 meters sq. *CALCULATION REVISED 12/21/2014;IDMS-traceable MDRD equation eGFR is derived from the reexpressed MDRD Study equation using the following parameters: serum creatinine, age, gender and race. An eGFR<60 mL/min/1.73m2 for >3 months is consistent with chronic kidney disease. Refer to KDOQI guidelines for clinical interpretation. Performed By: #### L 500.97456, L500.34306 #### Test performed at: [place] [address] IF non-AFR AMER > 60 Normal > 60 [facility] Comment on above: Order Comment: CBN: YES [place]: MAIN Performed By: #### L 500.15554, L500.96125 #### Test performed at: [place] [address] CONSULTATION REPORTon 2018 CONSULTATION REPORT NAME: LIBBY NINO MR#: [id number] STITCH BONDING MACHINE OPERATOR: Valencia Hernandez MD DATE OF CONSULTATION: 06/26/2018 [...] patient is medically stable. VALENCIA HERNANDEZ MD /[id number] [facility] PT NAME: LIBBY NINO MR#: [id number] [address] [place], [place] [id number] ACCT: [id number] : 70 CONSULTATION E/S: Valencia Hernandez MD 06/26/18 1221 Electronically Signed [facility] PT NAME: LIBBY NINO MR#: [id number] [address] [place], [place] [address] ACCT: [id number] : 70 CONSULTATION Normal [facility] OPERATIVE REPORTon 9 OPERATIVE REPORT NAME: LIBBY NINO MR#: [id number] SURGEON: Casandra Russell MD DATE OF SURGERY: 06/25/2018 OPERATIVE REPORT HARP REGULATOR: Filiberto Kaur. PREOPERATIVE DIAGNOSIS: Right L5 radiculopathy status [...] were able to stay in the midline [facility] PT NAME: LIBBY NINO MR#: [id number] [address] [place], [place] [id number] ACCT: [id number] : 70 OPERATIVE REPORT exposing just a [...] tolerated the procedure well. CASANDRA RUSSELL MD [facility] PT NAME: LIBBY NINO MR#: [id number] [address] [place] [address] ACCT: [id number] : 70 OPERATIVE REPORT JSA/MODL/[id number] E/S: Casandra Russell MD 06/30/18 1134 Electronically Signed [facility] PT NAME: LIBBY NINO MR#: [id number] [address] [place] [address] ACCT: [id number] : 70 OPERATIVE REPORT Normal [facility] TSon 06-25-2018 ABO and Rh group Nom (Bld) A POSITIVE Normal [facility] Comment on above: Order Comment: CONSE RVATION CBN: NO [place]: MAIN Transfusion Status: CONSERVATION Blood Bank service requested: TYPE AND SCREEN Comments To Phleb: IN SDS Performed By: #### B 100.0200 #### Test performed at: [place] [address] LUMBAR SPINE 1 VIEWon 2018 LUMBAR SPINE 1 VIEW STUDY: LUMBAR SPINE 1 VIEW;; 06/25/2018 11:10 am; 06/25/2018 12:20 pm INDICATION: REMOVAL HARDWARE , FORAMINOTOMY L4-S1; HARDWARE REMOVAL, FORAMINOTOMY L4-S1. COMPARISON: None. ACCESSION NUMBER(S): [id number]; [id number] ORDERING CLINICIAN: Casandra Russell FINDINGS: 2 lateral intraoperative views of the lumbar spine were performed for intraoperative localization. Please see procedure report for further details. IMPRESSION: Two lateral intraoperative views of the lumbar spine for localization. Please see procedure report for further details Normal [facility] LUMBAR SPINE 1 VIEW STUDY: LUMBAR SPINE 1 VIEW;; 06/25/2018 11:10 am; 06/25/2018 12:20 pm INDICATION: REMOVAL HARDWARE , FORAMINOTOMY L4-S1; HARDWARE REMOVAL, FORAMINOTOMY L4-S1. COMPARISON: None. ACCESSION NUMBER(S): [id number]; [id number] ORDERING CLINICIAN: Casandra Russell FINDINGS: 2 lateral intraoperative views of the lumbar spine were performed for intraoperative localization. Please see procedure report for further details. IMPRESSION: Two lateral intraoperative views of the lumbar spine for localization. Please see procedure report for further details Normal [facility] BASIC MET PANELon 06-12-2018 Anion gap [Moles/Vol] 10 mmol/L Normal 6-18 [facility] Comment on above: Order Comment: CBN: YES [place]: MAIN Performed By: #### L 500.19658, L500.57483 #### Test performed at: [address] [address] Calcium [Mass/Vol] 9.7 mg/dL Normal 8.5-10.1 [facility] Comment on above: Order Comment: CBN: YES [place]: MAIN Performed By: #### L 500.03881, L500.32915 #### Test performed at: [address] [address] Chloride [Moles/Vol] 104 mmol/L Normal 98-107 [facility] Comment on above: Order Comment: CBN: YES [place]: MAIN Performed By: #### L 500.79484, L500.27022 #### Test performed at: [address] [address] CO2 [Moles/Vol] 30 mmol/L Normal 21-32 [facility] Comment on above: Order Comment: CBN: YES [place]: MAIN Performed By: #### L 500.29435, L500.03939 #### Test performed at: [address] [address] Creatinine [Mass/Vol] 0.665 mg/dL Normal 0.550-1.020 [facility] Comment on above: Order Comment: CBN: YES [place]: MAIN Performed By: #### L 500.63352, L500.63434 #### Test performed at: [address] [address] Glucose [Mass/Vol] 98 mg/dL Normal 70-99 [facility] Comment on above: Order Comment: CBN: YES [place]: MAIN Result Comment: Fast ing GLUCOSE reference range has been updated per (ADA) [place] [employer]'s recommendation. 05/27/2018 Performed By: #### L 500.50075, L500.50419 #### Test performed at: [address] [address] OSM 288 mosm/kg Normal 270-300 [facility] Comment on above: Order Comment: CBN: YES [place]: MAIN Performed By: #### L 500.25395, L500.52148 #### Test performed at: [address] [address] Potassium [Moles/Vol] 4.5 mmol/L Normal 3.5-5.1 [facility] Comment on above: Order Comment: CBN: YES [place]: MAIN Performed By: #### L 500.27945, L500.43281 #### Test performed at: [address] [address] Sodium [Moles/Vol] 139 mmol/L Normal 136-145 [facility] Comment on above: Order Comment: CBN: YES [place]: MAIN Performed By: #### L 500.47036, L500.18279 #### Test performed at: [address] [address] Urea nitrogen [Mass/Vol] 13 mg/dL Normal 7-18 [facility] Comment on above: Order Comment: CBN: YES [place]: MAIN Performed By: #### L 500.05578, L500.01887 #### Test performed at: [address] [place] [address] CBCon 06-12-2018 Erythrocyte distribution width (RBC) [Ratio] 11.9 % Normal 11.5-14.5 [facility] Comment on above: Order Comment: CBN: YES [place]: MAIN Performed By: #### L 200.04050 #### Test performed at: [address] [address] Hematocrit (Bld) [Volume fraction] 40.7 % Normal 36.0-48.0 [facility] Comment on above: Order Comment: CBN: YES [place]: MAIN Performed By: #### L 200.32953 #### Test performed at: [address] [address] Hemoglobin (Bld) [Mass/Vol] 14.1 g/dL Normal 12.0-15.0 [facility] Comment on above: Order Comment: CBN: YES [place]: MAIN Performed By: #### L 200.84772 #### Test performed at: [address] [address] MCH (RBC) [Entitic mass] 31.9 pg Normal 25.4-34.6 [facility] Comment on above: Order Comment: CBN: YES [place]: MAIN Performed By: #### L 200.84437 #### Test performed at: [address] [address] MCHC (RBC) [Mass/Vol] 34.6 g/dL Normal 31.5-36.5 [facility] Comment on above: Order Comment: CBN: YES [place]: MAIN Performed By: #### L 200.78561 #### Test performed at: [address] [address] MCV (RBC) [Entitic vol] 92.1 fL Normal 79.0-98.0 [facility] Comment on above: Order Comment: CBN: YES [place]: MAIN Performed By: #### L 200.10058 #### Test performed at: [address] [address] NRBC # 0.000 K/uL Normal 0-0.012 [facility] Comment on above: Order Comment: CBN: YES [place]: MAIN Performed By: #### L 200.13793 #### Test performed at: [address] [address] NRBC % 0.0 /100 WBC Normal 0-0.2 [facility] Comment on above: Order Comment: CBN: YES [place]: MAIN Performed By: #### L 200.17386 #### Test performed at: [address] [address] Platelet mean volume (Bld) [Entitic vol] 11.8 fL Normal 8.7-12.4 [facility] Comment on above: Order Comment: CBN: YES [place]: MAIN Performed By: #### L 200.40154 #### Test performed at: [address] [address] Platelets (Bld) [#/Vol] 246 10*3/uL Normal 140-440 [facility] Comment on above: Order Comment: CBN: YES [place]: MAIN Performed By: #### L 200.57272 #### Test performed at: [address] [address] RBC (Bld) [#/Vol] 4.42 10*6/uL Normal 3.5-5.5 [facility] Comment on above: Order Comment: CBN: YES [place]: MAIN Performed By: #### L 200.73969 #### Test performed at: [address] [address] WBC (Bld) [#/Vol] 6.5 10*3/uL Normal 3.9-11.0 [facility] Comment on above: Order Comment: CBN: YES [place]: MAIN Performed By: #### L 200.93240 #### Test performed at: [place] [address] GFR ESTIMATEon 06-12-2018 IF AMER > 60 Normal > 60 [facility] Comment on above: Order Comment: CBN: YES [place]: MAIN Result Comment: eGFR (Estimated GFR) Units of measure:mL/min/1.73 meters sq. *CALCULATION REVISED 12/21/2014;IDMS-traceable MDRD equation eGFR is derived from the reexpressed MDRD Study equation using the following parameters: serum creatinine, age, gender and race. An eGFR<60 mL/min/1.73m2 for >3 months is consistent with chronic kidney disease. Refer to KDOQI guidelines for clinical interpretation. Performed By: #### L 500.26894, L500.45603 #### Test performed at: [place] [address] IF non-AFR AMER > 60 Normal > 60 [facility] Comment on above: Order Comment: CBN: YES [place]: MAIN Performed By: #### L 500.53871, L500.70860 #### Test performed at: [place] [address] TSPATon 06-12-2018 ABO and Rh group Nom (Bld) A POSITIVE Normal [facility] Comment on above: Order Comment: CBN: YES [place]: MAIN Transfusion Status: CONSERVATION Blood Bank service requested: TYPE AND SCREEN Specimen Comment: SURG 06/25 Performed By: #### B 100.0201 #### Test performed at: [place] [address] Vital Signs Date Time Vital Sign Value Performing Clinician Facility 03-13-2023 08:30-0500 Body height 162.56 cm Demario Rolle Other [facility] Other 03-13-2023 08:30-0500 Body mass index (BMI) [Ratio] 25.37 kg/m2 Demario Rolle Other [facility] Other 03-13-2023 08:30-0500 Body weight 67.04 kg Demario Ball Other [facility] Other 03-13-2023 08:30-0500 Diastolic blood pressure 75 mm[Hg] Demario Ball Other [facility] Other 03-13-2023 08:30-0500 Respiratory rate 12 /min Demario Ball Other [facility] Other 03-13-2023 08:30-0500 Systolic blood pressure 125 mm[Hg] Demario Ball Other [facility] Other 09-07-2022 13:30-0400 Body height 162.56 cm Demario Ball Other [facility] Other 09-07-2022 13:30-0400 Body mass index (BMI) [Ratio] 26.19 kg/m2 Demario Ball Other [facility] Other 09-07-2022 13:30-0400 Body weight 69.22 kg Demario Ball Other [facility] Other 09-07-2022 13:30-0400 Diastolic blood pressure 76 mm[Hg] Demario Ball Other [facility] Other 09-07-2022 13:30-0400 Respiratory rate 12 /min Demario Ball Other [facility] Other 09-07-2022 13:30-0400 Systolic blood pressure 117 mm[Hg] Demario Ball Other [facility] Other 03-14-2022 09:30-0500 Body height 162.56 cm Demario Ball Other [facility] Other 03-14-2022 09:30-0500 Body mass index (BMI) [Ratio] 30.34 kg/m2 Demario Ball Other [facility] Other 03-14-2022 09:30-0500 Body weight 80.2 kg Demario Ball Other [facility] Other 03-14-2022 09:30-0500 Diastolic blood pressure 78 mm[Hg] Demario Ball Other [facility] Other 03-14-2022 09:30-0500 Respiratory rate 12 /min Demario Ball Other [facility] Other 03-14-2022 09:30-0500 Systolic blood pressure 122 mm[Hg] Demario Ball Other [facility] Other Encounters Encounter Date Encounter Type Care Provider Facility Start: 07-30-2023 End: 07-30-2023 ambulatory ANGEL LEWIS Not Available Start: 05-07-2023 End: 05-07-2023 ambulatory REGGIE RAMOS Not Available Start: 04-02-2023 End: 04-02-2023 ambulatory Demario Rolle Other [facility] Other Start: 04-02-2023 Telephone encounter Demario Ball [facility] Start: 04-01-2023 End: 04-01-2023 ambulatory Demario Ball Other [facility] Other Start: 04-01-2023 Telephone encounter Demario Ball [facility] Start: 03-18-2023 End: 03-18-2023 ambulatory Demario Ball Other [facility] Other Start: 03-18-2023 Telephone encounter Demario Ball [facility] Start: 03-13-2023 End: 03-13-2023 ambulatory Demario Ball Other [facility] Other Start: 03-13-2023 Encounter for genera l adult medical examination without abnormal findings Demario Rolle [facility] Start: 03-13-2023 Periodic preventive med est patient 40-64yrs Demario Rolle [facility] Start: 02-26-2023 End: 02-26-2023 ambulatory ANGEL LEWIS Not Available Start: 11-12-2022 End: 11-12-2022 ambulatory Demario Rolle Other [facility] Other Start: 11-12-2022 Telephone encounter Demario Rolle [facility] Start: 09-07-2022 End: 09-07-2022 ambulatory Demario Rolle Other [facility] Other Start: 09-07-2022 Office outpatient vi sit 15 minutes Demario Rolle [facility] Start: 03-17-2022 End: 03-18-[address] DEMARIO ROLLE Facility:[facility] Start: 03-14-2022 End: 03-14-2022 ambulatory Demario Aquilino Other [facility] Other Start: 03-14-2022 Encounter for genera l adult medical examination without abnormal findings Demario Rolle [facility] Start: 03-14-2022 Periodic preventive med est patient 40-64yrs Demario Rolle [facility] Start: 03-12-2022 Annual wellness visit Demario Rolle Other [facility] Other Start: 02-13-2022 End: 02-14-[address] ANGEL LEWIS Facility:[facility] Start: 02-05-2022 End: 02-06-[address] ANGEL LEWIS Facility:[facility] Start: 09-13-2021 Adult health examination Jose aragon Aquilino Other [facility] Other Start: 09-13-2021 Gynecological examin ation normal Demario Rolle Other [facility] Other Start: 06-25-2018 Patient encounter procedure Facility:[id number] Procedures Date Procedure Procedure Detail Performing Clinician Start: 06-25-2018 Antibody screen Comment on above: Order Comment: CONSE RVATION CBN: NO [place]: MAIN Transfusion Status: CONSERVATION Blood Bank service requested: TYPE AND SCREEN Comments To Phleb: IN SDS Result Comment: TYPE AND SCREEN PERFORMED IN [facility] ON 06.12.18. Performed By: #### B 100.0200 #### Test performed at: [place] [address] Start: 06-12-2018 Antibody screen Comment on above: Order Comment: CBN: YES [place]: MAIN Transfusion Status: CONSERVATION Blood Bank service requested: TYPE AND SCREEN Specimen Comment: SURG 06/25 Performed By: #### B 100.0201 #### Test performed at: [place] [address] End: 09-19-2021 Depression screening Demario Rolle Other H/O: hysterectomy Demario Heredia all Other Hormone replacement therapy Demario Rolle Other Hormone replacement therapy Demario Rolle Other Hysterectomy Demario Rolle Other Screening for malign ant neoplasm of breast Demario Rolle Other Payers Date Payer Category Payer Unknown [id number] 2. [id number] 1970 Unknown [id number] 2.16.84 [id number] 1970 Unknown [id number] 2.16.84 [id number] 1970 Unknown [id number] 2.16.84 [id number] 1970 Unknown [id number] 2.16.84 [id number] 1970 Unknown [id number] 2.16.84 [id number] 1970 Unknown [id number] 1959 Private Health Insurance [id number] Social History Date Type Detail Facility Sex Assigned At [facility] Other Evaluation note 03-13-2023 Note Date & [...] of pancreatic cancer, weight loss and nausea [facility] Other Evaluation note 11-12-2022 Note Date & Type Note Facility 11-12-2022 Evaluation note Encounter Date Diagnosis Assessment Notes Nov, Essential (primary) hypertension (ICD-10 - I10) [place] Other Evaluation note 09-07-2022 Note Date & [...] for congestion, Tylenol for pain and fever. [facility] Other Evaluation note 03-14-2022 Note Date & [...] to adverse effects w/ BP and CVI [facility] Other Evaluation note Note Date & Type Note Facility Evaluation note No Information [facility] Other History general Narrative - Reported Note [...] back surgeries Hospitalization History see surgical history [facility] Other History general Narrative - Reported Note [...] x 4 Hospitalization History see surgical history [facility] Other Summary Purpose Family History No Family History Records FoundNo Family History Records FoundNo Family History Records FoundNo Family History Records FoundNo Family History Records Found Advance Directives No Advanced Directives Records FoundNo Advanced Directives Records FoundNo Advanced Directives Records FoundNo Advanced Directives Records FoundNo Advanced Directives Records Found Hospital Course Note NAME: LIBBY NINO MR #: [id number] ADMIT DATE: 06/25/2018 DISCHARGE DATE: 06/28/2018 DISCHARGE [...] section and content) DATE CREATED AUTHOR 07/04/2018 [facility] DATE CREATED AUTHOR AUTHOR'S ORGANIZ ATION 09/25/2018 [facility] DATE CREATED AUTHOR AUTHOR'S ORGANIZ ATION 05/02/2021 [facility] DATE CREATED AUTHOR AUTHOR'S ORGANIZ ATION 03/17/2022 [facility] DATE CREATED AUTHOR AUTHOR'S ORGANIZ ATION 07/31/2023 [facility] EPIC REASON FOR VISIT (unrecogniz ed section and content) 6 MONTH FOLLOW UP6 month Fol low upRefillsWellness examNo InformationMRI resultsLab results FOR RECORDS PERTAINING TO PATIENTS WHO ARE [...] BE BASED ON THE PRIMARY CLINICAL RECORDS. [employer] provides no warranty or guarantee of the accuracy or completeness of information in this document.
== END 2023-08-15 09:24 | disposition home or self-care (01) ==
LOC: MAMMO 09:24
PROVIDERS: PCP Internal Medicine; Visit Provider Obstetrics & Gynecology
DX: N63.10 Unspecified lump in the right breast, unspecified quadrant (principal); N63.20 Unspecified lump in the left breast, unspecified quadrant; N63.11 Unspecified lump in the right breast, upper outer quadrant; Z80.8 Family history of malignant neoplasm of other organs or systems
CPT/HCPCS: 77066; G0279

== ENCOUNTER 2024-03-12 19:46 | Outpatient (REF) | payer OTHER, SELFPAY ==
--- OUTSIDE RECORDS SUMMARY | 2024-03-12 19:50 | XMS_ITS | CCD ---
Author Organization [facility] Care Team Providers Care Skate Hop Name Role Phone AQUILINO, DR SOTOMAYOR Admitting Unavailable AQUILINO, DR SOTOMAYOR Attending Unavailable AQUILINO, DR SOTOMAYOR Primary Care Unavailable AQUILINO, DR SOTOMAYOR Consulting Unavailable JOSHUA, DR ORTIZ Admitting Unavailable OJSHUA, DR ORTIZ Attending Unavailable AQUILINO, DR SOTOMAYOR Primary Care Unavailable [place], DR MARCELINA Kennedy Consulting Unavailable JOSHUA, DR ORTIZ Consulting Unavailable JOSHUA, DR ORTIZ Admitting Unavailable JOSHUA, DR ORTIZ Attending Unavailable AQUILINO, DR SOTOMAYOR Primary Care Unavailable JOSHUA, DR ORTIZ Consulting Unavailable ZIEBER, DR CRISTINE Garnica Consulting Unavailable Demario Rolle Unavailable CONCEPCION WILDE Attending Unavailable JOSHUAANGEL KAMARA Attending Unavailable JOSHUA, ANGEL Attending Unavailable Demario Rolle MD Primary Care Provider Allergies Allergy Classification Reported Allergen(s) Allergy Type Date of Onset Reaction(s) Facility (2 sources) patient allergy list reviewed by nurse or physicia Propensity to adverse reactions 8 Comment:Done [facility] Other (2 sources) Allergies Reconciled Propensity to adverse reactions Unknown [employer] Other Medications Current Medications Medication Drug Class(es) Dates Sig (Normalized) Sig (Original) cyclobenzaprine hydrochloride 10 mg oral tablet (8 sources) Muscle Relaxant Start: 3 Cyclobenzaprine HCl 10 MG 1 Orally Once a day for 30 day(s) Mar, Active estrogens, conjugated (residential) 1.25 mg oral tablet (8 sources) Estrogen Start: 3 End: 4 take 1 tablet by mouth once daily estrogens, conjugated, (Premarin) 1.25 MG tablet Indications: Postmenopausal state Take 1 tablet (1.25 mg) by mouth 1 (one) time each day at the same time. 90 tablet 3 11/28/2022 11/23/2023 Active gabapentin 100 mg oral capsule (1 source) Anti-epilepti c Agent Start: 4 take 2 capsules by mouth three times daily gabapentin (Neurontin) 100 MG capsule TAKE 2 CAPSULES BY MOUTH 3 TIMES A DAY FOR 30 DAYS 06/21/2023 Active hydroCHLOROthiazide 12.5 mg oral capsule (9 sources) Thiazide Diuretic Start: 3 take 1 capsule by mouth every twenty-four hours hydroCHLOROthiazide 12.5 MG 1 tablet in the morning Orally Once a day for 90 days Mar, Active Multivitamin preparation (7 sources) take 1 tablet by mouth once daily Multivitamin - 1 tablet Orally Once a day Active traMADol hydrochloride 50 mg oral tablet (1 source) Opioid Agonist Start: 4 take 1 tablet by mouth at bedtime traMADol (Ultram) 50 MG tablet TAKE 1 TABLET BY MOUTH AT BEDTIME FOR 14 DAYS 05/31/2023 Active Completed/Discontinued Medications Medication Drug Class(es) Dates [...] bleeding; Translations: [Postmenopausal bleeding] Resolved: 11-17-2019 Chronic Nonmalignant breast conditions (1 source) Breast finding ; Translations: [Dense breast tissue] 10-17-2023 Episodic Other female genital disorders (2 sources) Abnormal [...] laryngitis; Translations: [Acute laryngitis] Onset: 03-01-2014 Episodic Residual codes; unclassified (1 source) Family history of cancer; Translations: [Family history of malignant neoplasm, unspecified] 10-17-2023 Episodic Viral infection (2 sources) Disease caused by 2019-nCoV; Translations: [COVID-19] Resolved: 09-19-2021 Results Test Name Value Interpretation Reference Range Facil ity CBC AUTO DIFFon 03-17-2022 BASO # 0.0 103/ul Normal 0.0-0.1 [facility] Comment on above: Performed By: #### C BC #### [facility] [address] [address] [address] Dong Mack Basophils/100 WBC (Bld) 0.7 % Normal 0.2-2.0 [facility] Comment on above: Performed By: #### C BC #### [facility] [address] [address] [address] Dong Mack EO # 0.1 103/ul Normal 0.0-0.7 [facility] Comment on above: Performed By: #### C BC #### [facility] [address] [address] [address] Dong Mack Eosinophils/100 WBC (Bld) 2.2 % Normal 0.9-7.0 [facility] Comment on above: Performed By: #### C BC #### [facility] [address] [address] [address] Dong Mack Erythrocyte distribution width (RBC) [Ratio] 11.8 % Normal 11.0-15.0 [facility] Comment on above: Performed By: #### C BC #### [facility] [address] [place] [address] Dr. Dong Mack Hematocrit (Bld) [Volume fraction] 39.6 % Normal 36.0-48.0 [facility] Comment on above: Performed By: #### C BC #### [facility] [address] [place] [address] Dr. Dong Mack Hemoglobin (Bld) [Mass/Vol] 13.9 g/dL Normal 12.0-16.0 [facility] Comment on above: Performed By: #### C BC #### [facility] [address] [place] [address] Dr. Dong Mack IG # 0.02 10e3/ul Normal 0.00-0.03 [facility] Comment on above: Performed By: #### C BC #### [facility] [address] [place] [address] Dr. Dong Mack IG % 0.4 % Normal 0.0-0.5 [facility] Comment on above: Performed By: #### C BC #### [facility] [address] [place] [address] Dr. Dong Mack LYMPH # 2.3 103/ul Normal 1.2-3.8 [facility] Comment on above: Performed By: #### C BC #### [facility] [address] [place] [address] Dr. Dong Mack Lymphocytes/100 WBC (Bld) 42.7 % Normal 20.5-60.0 [facility] Comment on above: Performed By: #### C BC #### [facility] [address] [place] [address] Dr. Dong Mack MANUAL DIFF REQ NO Normal [facility] Comment on above: Performed By: #### C BC #### [facility] [address] [place] [address] Dr. Dong Mack MCH (RBC) [Entitic mass] 31.4 pg Normal 26.7-34.0 [facility] Comment on above: Performed By: #### C BC #### [facility] [address] [place] [address] Dr. Dong Mack MCHC (RBC) [Mass/Vol] 35.1 g/dL Normal 29.9-35.2 [facility] Comment on above: Performed By: #### C BC #### [facility] [address] [place] [address] Dr. Dong Mack MCV (RBC) [Entitic vol] 89.4 fL Normal 81.0-99.0 [facility] Comment on above: Performed By: #### C BC #### [facility] [address] [place] [address] Dr. Dong Mack MONO # 0.4 103/ul Normal 0.3-0.8 [facility] Comment on above: Performed By: #### C BC #### [facility] [address] [place] [address] Dr. Dong Mack Monocytes/100 WBC (Bld) 6.9 % Normal 1.7-12.0 [facility] Comment on above: Performed By: #### C BC #### [facility] [address] [place] [address] Dr. Dong Mack NEUT # 2.5 103/ul Normal 1.4-6.5 [facility] Comment on above: Performed By: #### C BC #### [facility] [address] [place] [address] Dr. Dong Mack Neutrophils/100 WBC (Bld) 47.1 % Normal 43.0-75.0 [facility] Comment on above: Performed By: #### C BC #### [facility] [address] [place] [address] Dr. Dong Mack Platelet mean volume (Bld) [Entitic vol] 10.7 fL Normal 9.5-13.5 [facility] Comment on above: Performed By: #### C BC #### [facility] [address] [address] [address] Dong Mack PLT 280 103/ul Normal 150-450 [facility] Comment on above: Performed By: #### C BC #### [facility] [address] [address] [address] Dong Mack RBC 4.43 106/ul Normal 4.20-5.40 [facility] Comment on above: Performed By: #### C BC #### [facility] [address] [address] [address] Dong Mack WBC 5.3 103/ul Normal 4.0-11.0 [facility] Comment on above: Performed By: #### C BC #### [facility] [address] [place] [address] Dr. Dong Mack LIPID PROFILEon 03-17-2022 CHOL-HDL RATIO NORM SEE BELOW Normal [facility] Comment on above: Result Comment: 3.3 - 4.4 LOW RISK 4.4 - 7.1 AVERAGE RISK 7.1 - 11.0 MODERATE RISK >11.0 HIGH RISK Performed By: #### L IPID, TSH, CMP #### [facility] [address] [place] [address] Dr. Dong Mack Cholesterol [Mass/Vol] 254 mg/dL Critically high <=200 [facility] Comment on above: Performed By: #### L IPID, TSH, CMP #### [facility] [address] [place] [address] Dr. Dong Mack Cholesterol in HDL [Mass/Vol] 72 mg/dL Critically high 40-60 [facility] Comment on above: Performed By: #### L IPID, TSH, CMP #### [facility] [address] [place] [address] Dr. Dong Mack Cholesterol in LDL [Mass/Vol] 152.4 mg/dL Normal [facility] Comment on above: Performed By: #### L IPID, TSH, CMP #### [facility] [address] [place] [address] Dr. Dong Mack Cholesterol.total/ Cholesterol in HDL [Mass ratio] 3.5 {ratio} Normal [facility] Comment on above: Performed By: #### L IPID, TSH, CMP #### [facility] [address] [address] [address] Dong Mack HDL NORMAL > or = 60 mg/dl - LO W CARDIOVASCULAR RISK <40 mg/dl - HIGH CARDIOVASCULAR RISK Normal [facility] Comment on above: Performed By: #### L IPID, TSH, CMP #### [facility] [address] [address] [address] Dong Mack LDL CALC NORMAL SEE BELOW Normal [facility] Comment on above: Result Comment: <100 mg/dl OPTIMAL 100 - 129 mg/dl NEAR OR ABOVE OPTIMAL 130 - 159 mg/dl BORDERLINE HIGH 160 - 189 mg/dl HIGH >190 mg/dl VERY HIGH Performed By: #### L IPID, TSH, CMP #### [facility] [address] [address] [address] Dong Mack Triglyceride [Mass/Vol] 148 mg/dL Normal <=150 [facility] Comment on above: Performed By: #### L IPID, TSH, CMP #### [facility] [address] [address] [address] Dong Mack VLDL CALC 29.6 mg/dL Normal [facility] Comment on above: Performed By: #### L IPID, TSH, CMP #### [facility] [address] [address] [address] Dong Mack PROF 14(COMP METB)on 023 Albumin [Mass/Vol] 3.8 g/dL Normal 3.4-5.0 [facility] Comment on above: Performed By: #### L IPID, TSH, CMP #### [facility] [address] [address] [address] Dong Mack Albumin/Globulin [Mass ratio] 1.2 {ratio} Normal [facility] Comment on above: Performed By: #### L IPID, TSH, CMP #### [facility] [address] [address] [address] Dong Mack ALP [Catalytic activity/Vol] 52 U/L Normal 46-116 [facility] Comment on above: Performed By: #### L IPID, TSH, CMP #### [facility] [address] [address] [address] Dong Mack ALT [Catalytic activity/Vol] 27 U/L Normal 14-59 [facility] Comment on above: Performed By: #### L IPID, TSH, CMP #### [facility] [address] [address] [address] Dong Mack Anion gap [Moles/Vol] 8.1 mmol/L Normal [facility] Comment on above: Performed By: #### L IPID, TSH, CMP #### [facility] [address] [place] [address] Dr. Dong Mack AST [Catalytic activity/Vol] 22 U/L Normal 15-37 [facility] Comment on above: Performed By: #### L IPID, TSH, CMP #### [facility] [address] [place] [address] Dr. Dong Mack Bilirubin [Mass/Vol] 0.7 mg/dL Normal 0.2-1.0 [facility] Comment on above: Performed By: #### L IPID, TSH, CMP #### [facility] [address] [place] [address] Dr. Dong Mack Calcium [Mass/Vol] 9.2 mg/dL Normal 8.5-10.1 [facility] Comment on above: Performed By: #### L IPID, TSH, CMP #### [facility] [address] [place] [address] Dr. Dong Mack Chloride [Moles/Vol] 103 mmol/L Normal 98-107 [facility] Comment on above: Performed By: #### L IPID, TSH, CMP #### [facility] [address] [place] [address] Dr. Dong Mack CO2 [Moles/Vol] 33.9 mmol/L Critically high 21.0-32.0 [facility] Comment on above: Performed By: #### L IPID, TSH, CMP #### [facility] [address] [place] [address] Dr. Dong Mack Creatinine [Mass/Vol] 0.66 mg/dL Normal 0.55-1.02 [facility] Comment on above: Performed By: #### L IPID, TSH, CMP #### [facility] [address] [address] [address] Dong Mack EGFR-AF SURINAMESE >60 Normal >=60 [facility] Comment on above: Performed By: #### L IPID, TSH, CMP #### [facility] [address] [address] [address] Dong Mack EGFR-NON AF SURINAMESE >60 Normal >=60 [facility] Comment on above: Performed By: #### L IPID, TSH, CMP #### [facility] [address] [place] [address] Dr. Dong Mack Globulin (S) [Mass/Vol] 3.3 g/dL Normal [facility] Comment on above: Performed By: #### L IPID, TSH, CMP #### [facility] [address] [place] [address] Dr. Dong Mack Glucose [Mass/Vol] 94 mg/dL Normal 74-[address] [facility] Comment on above: Performed By: #### L IPID, TSH, CMP #### [facility] [address] [place] [address] Dr. Dong Mack Potassium [Moles/Vol] 4.0 mmol/L Normal 3.5-5.1 [facility] Comment on above: Performed By: #### L IPID, TSH, CMP #### [facility] [address] [place] [address] Dr. Dong Mack Protein [Mass/Vol] 7.1 g/dL Normal 6.4-8.[address] [facility] Comment on above: Performed By: #### L IPID, TSH, CMP #### [facility] [address] [place] [address] Dr. Dong Mack Sodium [Moles/Vol] 141 mmol/L Normal 136-[address] [facility] Comment on above: Performed By: #### L IPID, TSH, CMP #### [facility] [address] [place] [address] Dr. Dong Mack Urea nitrogen [Mass/Vol] 13.0 mg/dL Normal 7.0-18.0 [facility] Comment on above: Performed By: #### L IPID, TSH, CMP #### [facility] [address] [place] [address] Dr. Dong Mack Urea nitrogen/Creatinin e [Mass ratio] 19.7 mg/mg Normal [facility] Comment on above: Performed By: #### L IPID, TSH, CMP #### [facility] [address] [place] [address] Dr. Dong Mack TSHon 03-17-2022 TSH 1.223 uIU/mL Normal 0.358-3.740 [facility] Comment on above: Performed By: #### L IPID, TSH, CMP #### [facility] [address] [place] [address] Dr. Dong Mack PAP ACOG PANEL 2: 30 to 65on 02-13-2022 . . Normal [facility] Comment on above: Result Comment: Perf ormed at: WB Performed By: #### [id number] #### [facility] [address] [place] [address] Dr. Dong Mack Age Gdln ACOG Testing - Normal [facility] Comment on above: Performed By: #### [id number] #### [facility] [address] [place] [address] Dr. Dong Mack DIAGNOSIS: Comment Normal [facility] Comment on above: Result Comment: NEGA TIVE FOR INTRAEPITHELIAL LESION OR MALIGNANCY. Performed at: WB Performed By: #### [id number] #### [facility] [address] [place] [address] Dr. Dong Mack HPV Aptima Negative Normal Negative [facility] Comment on above: Result Comment: This nucleic acid amplification test detects fourteen high-risk HPV types (16,18,31,33,35,39,45,51,52,56,58,59,66,68) without differentiation. Performed at: =G Performed By: #### [id number] #### [facility] [address] [place] [address] Dr. Dong Mack HPV Genotype Reflex Comment Normal [facility] Comment on above: Result Comment: Crit erjustin not met, HPV Genotype not performed. Performed at: WB Performed By: #### [id number] #### [facility] [address] [place] [address] Dr. Dong Mack Methodology: Comment Normal [facility] Comment on above: Result Comment: This liquid based ThinPrep(R) pap test was screened with the use of an image guided system. Performed at: WB Performed By: #### [id number] #### [facility] [address] [place] [address] Dr. Dong Mack Note: Comment Normal [facility] Comment on above: Result Comment: The Pap smear is a screening test designed to aid in the detection of premalignant and malignant conditions of the uterine cervix. It is not a diagnostic procedure and should not be used as the sole means of detecting cervical cancer. Both false-positive and false-negative reports do occur. . Performed at: WB Performed By: #### [id number] #### [facility] [address] [place] [address] Dr. Dong Mack Performed by: Comment Normal [facility] Comment on above: Result Comment: Nithya Keen, Trailer Assembler Performed at: WB Performed By: #### [id number] #### [facility] [address] [place] [address] Dr. Dong Mack Specimen adequacy: Comment Normal [facility] Comment on above: Result Comment: Sati sfactory for evaluation. Endocervical and/or squamous metaplastic cells (endocervical component) are present. Performed at: WB Performed By: #### [id number] #### [facility] [address] [place] [address] Dr. Dong Mack XR DEXA BONE DENSITYon [...] by: CRISTINE POPE Date: 2022-02-13 08:43 Normal [facility] MG MAMM SCREEN 3D RAMEZ CADon 02-05-2022 MG MAMM SCREEN 3D RAMEZ CAD Patient: LUANNE NINO Exam Date: 02/05/2022 : 1970 Gender:F Ordering : DR ANGEL HINOJOSA . Admission #: [id number] Family : DR DEMARIO ROLLE D.O. Order #: [id number] CLICK HERE TO VIEW EXAM RADIOLOGY REPORT [...] melanoma cancer at age 41. LOCATION: [facility] BREAST COMPOSITION: Heterogeneously dense,which may obscure [...] Triana MD on 02/05/2022 at 09:50 Normal [facility] COVID-19 Antigenon 2 COVID-19 Antigen Healthcare [...] its performance Carli Disclaimer characteristic determined by [employer] and Carli Disclaimer validated at [facility]. This Carli Disclaimer test has not been [...] Emergency Use Authorization for Coronavirus Carli Disclaimer iseas during the Public Health Emergency) [...] is terminated or revoked sooner. PERFORMED BY: [place] [phone] PATHOLOGIST TRUCK TRAILER MECHANIC WAQAS DÍAZ M.D. [facility] Comment on above: Performed By: #### C OVID-19 CARLI, SOFIANEG #### [address] Carli Ag Negativeon 04-25-19 22 Carli Ag Negative Negative Normal Negative [facility] Comment on above: Result Comment: This is a duplicate Carli SARS Antigen (ANTONIO) result to be used for statistical tracking purpose only. PERFORMED BY: [place] [address] PATHOLOGIST TRUCK TRAILER MECHANIC WAQAS DÍAZ M.D. Performed By: #### C OVID-19 CARLI, SOFIANEG #### [address] LUMBAR SPINE 2 OR 3 VIEWSon 09-18-2018 LUMBAR SPINE 2 OR 3 VIEWS STUDY: LUMBAR SPINE 2 OR 3 VIEWS; 09/18/2018 10:45 am INDICATION: PAIN. COMPARISON: Intraoperative radiographs from 06/25/2018 ACCESSION NUMBER(S): [id number] ORDERING CLINICIAN: Emely Puckett FINDINGS: Interbody graft at L3-4. Posterior metallic fusion hardware with laminectomy defects L4-S1. Grade 2-3 anterolisthesis L5-S1 unchanged. No new fracture subluxation. No new disc height loss. Degenerative changes appear similar prior exam. IMPRESSION: L3-4 and L4-S1 fusion changes. Normal [facility] BASIC MET PANELon 06-26-2018 Anion gap [Moles/Vol] 8 mmol/L Normal 6-18 [facility] Comment on above: Order Comment: CONSE RVATION Performed By: #### L 500.04024, L500.36606, L500.16634 #### Test performed at: [address] [address] Calcium [Mass/Vol] 8.3 mg/dL Low 8.5-10.1 [facility] Comment on above: Order Comment: CONSE RVATION Performed By: #### L 500.12993, L500.15975, L500.96033 #### Test performed at: [address] [address] Chloride [Moles/Vol] 103 mmol/L Normal 98-107 [facility] Comment on above: Order Comment: CONSE RVATION Performed By: #### L 500.23238, L500.41570, L500.35611 #### Test performed at: [address] [address] CO2 [Moles/Vol] 30 mmol/L Normal 21-32 [facility] Comment on above: Order Comment: CONSE RVATION Performed By: #### L 500.84347, L500.31379, L500.68635 #### Test performed at: [address] [address] Creatinine [Mass/Vol] 0.620 mg/dL Normal 0.550-1.020 [facility] Comment on above: Order Comment: CONSE RVATION Performed By: #### L 500.46256, L500.73528, L500.94210 #### Test performed at: [address] [address] Glucose [Mass/Vol] 139 mg/dL High 70-99 [facility] Comment on above: Order Comment: CONSE RVATION Result Comment: Fast ing GLUCOSE reference range has been updated per (ADA) [place] [employer]'s recommendation. 05/27/2018 Performed By: #### L 500.97997, L500.30389, L500.36188 #### Test performed at: [address] [address] OSM 284 mosm/kg Normal 270-300 [facility] Comment on above: Order Comment: CONSE RVATION Performed By: #### L 500.73458, L500.67653, L500.56049 #### Test performed at: [address] [address] Potassium [Moles/Vol] 4.3 mmol/L Normal 3.5-5.1 [facility] Comment on above: Order Comment: CONSE RVATION Performed By: #### L 500.13235, L500.23405, L500.49268 #### Test performed at: [address] [address] Sodium [Moles/Vol] 137 mmol/L Normal 136-145 [facility] Comment on above: Order Comment: CONSE RVATION Performed By: #### L 500.99463, L500.44882, L500.08623 #### Test performed at: [address] [address] Urea nitrogen [Mass/Vol] 5 mg/dL Low 7-18 [facility] Comment on above: Order Comment: CONSE RVATION Performed By: #### L 500.62467, L500.87083, L500.93905 #### Test performed at: [address] [address] CBC W/DIFFon 06-26-2018 BASO ABS 0.0 K/uL Normal 0.0-0.2 [facility] Comment on above: Order Comment: CONSE RVATION Performed By: #### L 200.05846 #### Test performed at: [address] [address] Basophils/100 WBC (Bld) 0.1 % Normal [facility] Comment on above: Order Comment: CONSE RVATION Performed By: #### L 200.47445 #### Test performed at: [address] [address] EOS ABS 0.0 K/uL Normal 0.0-0.5 [facility] Comment on above: Order Comment: CONSE RVATION Performed By: #### L 200.42404 #### Test performed at: [address] [address] Eosinophils/100 WBC (Bld) 0.0 % Normal [facility] Comment on above: Order Comment: CONSE RVATION Performed By: #### L 200.21761 #### Test performed at: [address] [address] IG % 0.5 % Normal [facility] Comment on above: Order Comment: CONSE RVATION Performed By: #### L 200.29425 #### Test performed at: [address] [address] IG ABS 0.07 K/uL High 0-0.05 [facility] Comment on above: Order Comment: CONSE RVATION Performed By: #### L 200.26234 #### Test performed at: [address] [address] Lymphocytes (Bld) [#/Vol] 1.2 10*3/uL Normal 1.2-3.5 [facility] Comment on above: Order Comment: CONSE RVATION Performed By: #### L 200.94171 #### Test performed at: [address] [address] Lymphocytes/100 WBC (Bld) 9.2 % Normal [facility] Comment on above: Order Comment: CONSE RVATION Performed By: #### L 200.84249 #### Test performed at: [address] [address] MONO ABS 0.8 K/uL Normal 0.0-1.0 [facility] Comment on above: Order Comment: CONSE RVATION Performed By: #### L 200.63312 #### Test performed at: [address] [address] Monocytes/100 WBC (Bld) 5.7 % Normal [facility] Comment on above: Order Comment: CONSE RVATION Performed By: #### L 200.35506 #### Test performed at: [address] [address] NEUTROPHIL ABS 11.4 K/uL High 1.4-6.6 [facility] Comment on above: Order Comment: CONSE RVATION Performed By: #### L 200.59763 #### Test performed at: [address] [address] Neutrophils/100 WBC (Bld) 84.5 % Normal [facility] Comment on above: Order Comment: CONSE RVATION Performed By: #### L 200.01150 #### Test performed at: [address] [address] Erythrocyte distribution width (RBC) [Ratio] 11.5 % Normal 11.5-14.5 [facility] Comment on above: Order Comment: CONSE RVATION Performed By: #### L 200.55416 #### Test performed at: [address] [address] Hematocrit (Bld) [Volume fraction] 31.4 % Low 36.0-48.0 [facility] Comment on above: Order Comment: CONSE RVATION Performed By: #### L 200.29322 #### Test performed at: [address] [address] Hemoglobin (Bld) [Mass/Vol] 11.2 g/dL Low 12.0-15.0 [facility] Comment on above: Order Comment: CONSE RVATION Result Comment: Delt a: 14.1 on 06/12/18-1047 Performed By: #### L 200.66391 #### Test performed at: [place] [address] MCH (RBC) [Entitic mass] 32.3 pg Normal 25.4-34.6 [facility] Comment on above: Order Comment: CONSE RVATION Performed By: #### L 200.78954 #### Test performed at: [place] [address] MCHC (RBC) [Mass/Vol] 35.7 g/dL Normal 31.5-36.5 [facility] Comment on above: Order Comment: CONSE RVATION Performed By: #### L 200.69889 #### Test performed at: [place] [address] MCV (RBC) [Entitic vol] 90.5 fL Normal 79.0-98.0 [facility] Comment on above: Order Comment: CONSE RVATION Performed By: #### L 200.41624 #### Test performed at: [place] [address] NRBC # 0.000 K/uL Normal 0-0.012 [facility] Comment on above: Order Comment: CONSE RVATION Performed By: #### L 200.18648 #### Test performed at: [place] [address] NRBC % 0.0 /100 WBC Normal 0-0.2 [facility] Comment on above: Order Comment: CONSE RVATION Performed By: #### L 200.65291 #### Test performed at: [address] [address] Platelet mean volume (Bld) [Entitic vol] 11.3 fL Normal 8.7-12.4 [facility] Comment on above: Order Comment: CONSE RVATION Performed By: #### L 200.18075 #### Test performed at: [address] [address] Platelets (Bld) [#/Vol] 208 10*3/uL Normal 140-440 [facility] Comment on above: Order Comment: CONSE RVATION Performed By: #### L 200.96721 #### Test performed at: [place] [id number] RBC (Bld) [#/Vol] 3.47 10*6/uL Low 3.5-5.5 [facility] Comment on above: Order Comment: CONSE RVATION Performed By: #### L 200.18782 #### Test performed at: [address] [address] WBC (Bld) [#/Vol] 13.5 10*3/uL High 3.9-11.0 [facility] Comment on above: Order Comment: CONSE RVATION Result Comment: Delt a: 6.5 on 06/12/18 Performed By: #### L 200.57591 #### Test performed at: [place] [id number] EST. CREAT CLRon 06-26-2018 Creatinine [Mass/Vol] 159.375 ML/MIN Normal [facility] Comment on above: Order Comment: CBN: YES [place]: MAIN Result Comment: This result is an ESTIMATED blood creatinine clearance value which is derived from the patient age, sex, weight, and previous blood creatinine result. Performed By: #### L 500.65621, L500.51394 #### Test performed at: [place] [id number] GFR ESTIMATEon 06-26-2018 IF AMER > 60 Normal > 60 [facility] Comment on above: Order Comment: CBN: YES [place]: MAIN Result Comment: eGFR (Estimated GFR) Units of measure:mL/min/1.73 meters sq. *CALCULATION REVISED 12/21/2014;IDMS-traceable MDRD equation eGFR is derived from the reexpressed MDRD Study equation using the following parameters: serum creatinine, age, gender and race. An eGFR<60 mL/min/1.73m2 for >3 months is consistent with chronic kidney disease. Refer to KDOQI guidelines for clinical interpretation. Performed By: #### L 500.80090, L500.86962 #### Test performed at: [place] [address] IF non-AFR AMER > 60 Normal > 60 [facility] Comment on above: Order Comment: CBN: YES [place]: MAIN Performed By: #### L 500.63831, L500.68791 #### Test performed at: [place] [address] CONSULTATION REPORTon 2018 CONSULTATION REPORT NAME: LUANNE NINO MR#: [id number] MARINE DIESEL TECHNICIAN: Valencia Hernandez MD DATE OF CONSULTATION: 06/26/2018 [...] patient is medically stable. VALENCIA HERNANDEZ MD /[facility] [place][id number] [facility] PT NAME: LUANNE NINO MR#: [id number] [address] [place] [address] ACCT: [id number] : 70 CONSULTATION E/S: Valencia Hernandez MD 06/26/18 1221 Electronically Signed [facility] PT NAME: LUANNE NINO MR#: [id number] [address] [place], [place] [address] ACCT: [id number] : 70 CONSULTATION Normal [facility] OPERATIVE REPORTon 9 OPERATIVE REPORT NAME: LUANNE NINO MR#: [id number] SURGEON: Casandra Russell MD DATE OF SURGERY: 06/25/2018 OPERATIVE REPORT VB DEVELOPER: Filiberto Kaur. PREOPERATIVE DIAGNOSIS: Right L5 radiculopathy [...] were able to stay in the midline [facility] PT NAME: LUANNE NINO MR#: [id number] [address] [place] [address] ACCT: [id number] : 70 OPERATIVE REPORT exposing just a [...] tolerated the procedure well. CASANDRA RUSSELL MD [facility] PT NAME: LUANNE NINO MR#: [id number] [address] [place] [address] ACCT: [id number] : 70 OPERATIVE REPORT JSA/[id number] E/S: Casandra Russell MD 06/30/18 1134 Electronically Signed [facility] PT NAME: LUANNE NINO MR#: [id number] [address] [place], [place] [address] ACCT: [id number] : 70 OPERATIVE REPORT Normal [facility] TSon 06-25-2018 ABO and Rh group Nom (Bld) A POSITIVE Normal [facility] Comment on above: Order Comment: CONSE RVATION CBN: NO [place]: MAIN Transfusion Status: CONSERVATION Blood Bank service requested: TYPE AND SCREEN Comments To Phleb: IN SDS Performed By: #### B 100.0200 #### Test performed at: [address] [address] LUMBAR SPINE 1 VIEWon 2018 LUMBAR SPINE 1 VIEW STUDY: LUMBAR SPINE 1 VIEW;; 06/25/2018 11:10 am; 06/25/2018 12:20 pm INDICATION: REMOVAL HARDWARE , FORAMINOTOMY L4-S1; HARDWARE REMOVAL, FORAMINOTOMY L4-S1. COMPARISON: None. ACCESSION NUMBER(S): [id number]; [id number] ORDERING CLINICIAN: Casandra Russell FINDINGS: 2 lateral intraoperative views of the lumbar spine were performed for intraoperative localization. Please see procedure report for further details. IMPRESSION: Two lateral intraoperative views of the lumbar spine for localization. Please see procedure report for further details Normal [facility] LUMBAR SPINE 1 VIEW STUDY: LUMBAR SPINE 1 VIEW;; 06/25/2018 11:10 am; 06/25/2018 12:20 pm INDICATION: REMOVAL HARDWARE , FORAMINOTOMY L4-S1; HARDWARE REMOVAL, FORAMINOTOMY L4-S1. COMPARISON: None. ACCESSION NUMBER(S): [id number]; [id number] ORDERING CLINICIAN: Casandra Russell FINDINGS: 2 lateral intraoperative views of the lumbar spine were performed for intraoperative localization. Please see procedure report for further details. IMPRESSION: Two lateral intraoperative views of the lumbar spine for localization. Please see procedure report for further details Normal [facility] BASIC MET PANELon 06-12-2018 Anion gap [Moles/Vol] 10 mmol/L Normal 6-18 [facility] Comment on above: Order Comment: CBN: YES [place]: MAIN Performed By: #### L 500.78600, L500.07889 #### Test performed at: [address] [address] Calcium [Mass/Vol] 9.7 mg/dL Normal 8.5-10.1 [facility] Comment on above: Order Comment: CBN: YES [place]: MAIN Performed By: #### L 500.73177, L500.02639 #### Test performed at: [address] [address] Chloride [Moles/Vol] 104 mmol/L Normal 98-107 [facility] Comment on above: Order Comment: CBN: YES [place]: MAIN Performed By: #### L 500.83231, L500.72572 #### Test performed at: [address] [address] CO2 [Moles/Vol] 30 mmol/L Normal 21-32 [facility] Comment on above: Order Comment: CBN: YES [place]: MAIN Performed By: #### L 500.27362, L500.80764 #### Test performed at: [address] [address] Creatinine [Mass/Vol] 0.665 mg/dL Normal 0.550-1.020 [facility] Comment on above: Order Comment: CBN: YES [place]: MAIN Performed By: #### L 500.60992, L500.92515 #### Test performed at: [address] [address] Glucose [Mass/Vol] 98 mg/dL Normal 70-99 [facility] Comment on above: Order Comment: CBN: YES [place]: MAIN Result Comment: Fast ing GLUCOSE reference range has been updated per (ADA) [place] [employer]'s recommendation. 05/27/2018 Performed By: #### L 500.38201, L500.21067 #### Test performed at: [address] [address] OSM 288 mosm/kg Normal 270-300 [facility] Comment on above: Order Comment: CBN: YES [place]: MAIN Performed By: #### L 500.91954, L500.19415 #### Test performed at: [address] [address] Potassium [Moles/Vol] 4.5 mmol/L Normal 3.5-5.1 [facility] Comment on above: Order Comment: CBN: YES [place]: MAIN Performed By: #### L 500.03575, L500.00064 #### Test performed at: [address] [address] Sodium [Moles/Vol] 139 mmol/L Normal 136-145 [facility] Comment on above: Order Comment: CBN: YES [place]: MAIN Performed By: #### L 500.51280, L500.41419 #### Test performed at: [address] [address] Urea nitrogen [Mass/Vol] 13 mg/dL Normal 7-18 [facility] Comment on above: Order Comment: CBN: YES [place]: MAIN Performed By: #### L 500.69820, L500.71991 #### Test performed at: [address] [address] CBCon 06-12-2018 Erythrocyte distribution width (RBC) [Ratio] 11.9 % Normal 11.5-14.5 [facility] Comment on above: Order Comment: CBN: YES [place]: MAIN Performed By: #### L 200.81923 #### Test performed at: [address] [address] Hematocrit (Bld) [Volume fraction] 40.7 % Normal 36.0-48.0 [facility] Comment on above: Order Comment: CBN: YES [place]: MAIN Performed By: #### L 200.24007 #### Test performed at: [address] [address] Hemoglobin (Bld) [Mass/Vol] 14.1 g/dL Normal 12.0-15.0 [facility] Comment on above: Order Comment: CBN: YES [place]: MAIN Performed By: #### L 200.67455 #### Test performed at: [address] [address] MCH (RBC) [Entitic mass] 31.9 pg Normal 25.4-34.6 [facility] Comment on above: Order Comment: CBN: YES [place]: MAIN Performed By: #### L 200.70426 #### Test performed at: [address] [address] MCHC (RBC) [Mass/Vol] 34.6 g/dL Normal 31.5-36.5 [facility] Comment on above: Order Comment: CBN: YES [place]: MAIN Performed By: #### L 200.19482 #### Test performed at: [address] [address] MCV (RBC) [Entitic vol] 92.1 fL Normal 79.0-98.0 [facility] Comment on above: Order Comment: CBN: YES [place]: MAIN Performed By: #### L 200.46998 #### Test performed at: [address] [address] NRBC # 0.000 K/uL Normal 0-0.012 [facility] Comment on above: Order Comment: CBN: YES [place]: MAIN Performed By: #### L 200.83160 #### Test performed at: [address] [address] NRBC % 0.0 /100 WBC Normal 0-0.2 [facility] Comment on above: Order Comment: CBN: YES [place]: MAIN Performed By: #### L 200.25616 #### Test performed at: [address] [address] Platelet mean volume (Bld) [Entitic vol] 11.8 fL Normal 8.7-12.4 [facility] Comment on above: Order Comment: CBN: YES [place]: MAIN Performed By: #### L 200.60497 #### Test performed at: [address] [address] Platelets (Bld) [#/Vol] 246 10*3/uL Normal 140-440 [facility] Comment on above: Order Comment: CBN: YES [place]: MAIN Performed By: #### L 200.05740 #### Test performed at: [address] [address] RBC (Bld) [#/Vol] 4.42 10*6/uL Normal 3.5-5.5 [facility] Comment on above: Order Comment: CBN: YES [place]: MAIN Performed By: #### L 200.74938 #### Test performed at: [address] [address] WBC (Bld) [#/Vol] 6.5 10*3/uL Normal 3.9-11.0 [facility] Comment on above: Order Comment: CBN: YES [place]: MAIN Performed By: #### L 200.50638 #### Test performed at: [address] [address] GFR ESTIMATEon 06-12-2018 IF AMER > 60 Normal > 60 [facility] Comment on above: Order Comment: CBN: YES [place]: MAIN Result Comment: eGFR (Estimated GFR) Units of measure:mL/min/1.73 meters sq. *CALCULATION REVISED 12/21/2014;IDMS-traceable MDRD equation eGFR is derived from the reexpressed MDRD Study equation using the following parameters: serum creatinine, age, gender and race. An eGFR<60 mL/min/1.73m2 for >3 months is consistent with chronic kidney disease. Refer to KDOQI guidelines for clinical interpretation. Performed By: #### L 500.53876, L500.00379 #### Test performed at: [place] [address] IF non-AFR AMER > 60 Normal > 60 [facility] Comment on above: Order Comment: CBN: YES [place]: MAIN Performed By: #### L 500.16494, L500.21328 #### Test performed at: [address] [address] TSPATon 06-12-2018 ABO and Rh group Nom (Bld) A POSITIVE Normal [facility] Comment on above: Order Comment: CBN: YES [place]: MAIN Transfusion Status: CONSERVATION Blood Bank service requested: TYPE AND SCREEN Specimen Comment: SURG 06/25 Performed By: #### B 100.0201 #### Test performed at: [address] [address] Vital Signs Date Time Vital Sign Value Performing Clinician Facility 03-13-2023 08:30-0500 Body height 162.56 cm Demario Ball Other [facility] Other 03-13-2023 08:30-0500 Body mass index (BMI) [Ratio] 25.37 kg/m2 Demario Ball Other [facility] Other 03-13-2023 08:30-0500 Body weight 67.04 kg Demario Ball Other [facility] Other 03-13-2023 08:30-0500 Diastolic blood pressure 75 mm[Hg] Demario Ball Other [facility] Other 03-13-2023 08:30-0500 Respiratory rate 12 /min Demario Ball Other [facility] Other 03-13-2023 08:30-0500 Systolic blood pressure 125 mm[Hg] Demario Ball Other [facility] Other 09-07-2022 13:30-0400 Body height 162.56 cm Demario Ball Other [facility] Other 09-07-2022 13:30-0400 Body mass index (BMI) [Ratio] 26.19 kg/m2 Demario Ball Other [facility] Other 09-07-2022 13:30-0400 Body weight 69.22 kg Demario Ball Other [facility] Other 09-07-2022 13:30-0400 Diastolic blood pressure 76 mm[Hg] Demario Ball Other [facility] Other 09-07-2022 13:30-0400 Respiratory rate 12 /min Demario Ball Other [facility] Other 09-07-2022 13:30-0400 Systolic blood pressure 117 mm[Hg] Demario Ball Other [facility] Other 03-14-2022 09:30-0500 Body height 162.56 cm Demario Ball Other [facility] Other 03-14-2022 09:30-0500 Body mass index (BMI) [Ratio] 30.34 kg/m2 Demario Ball Other [facility] Other 03-14-2022 09:30-0500 Body weight 80.2 kg Demario Ball Other [facility] Other 03-14-2022 09:30-0500 Diastolic blood pressure 78 mm[Hg] Demario Ball Other [facility] Other 03-14-2022 09:30-0500 Respiratory rate 12 /min Demario Ball Other [facility] Other 03-14-2022 09:30-0500 Systolic blood pressure 122 mm[Hg] Demario Ball Other [facility] Other Encounters Encounter Date Encounter Type Care Provider Facility Start: 10-17-2023 End: 11-11-2023 Orders Only Angel Hinojosa DO Work Phone: [facility] Comment on above: Family history of ca ncer; Dense breast tissue Start: 07-30-2023 End: 07-30-2023 ambulatory ANGEL JOSHUA Not Available Start: 05-07-2023 End: 05-07-2023 ambulatory CONCEPCION WILDE Not Available Start: 04-02-2023 End: 04-02-2023 ambulatory Demario Rolle Other [facility] Other Start: 04-02-2023 Telephone encounter Demario Rolle [facility] Start: 04-01-2023 End: 04-01-2023 ambulatory Demario Rolle Other [facility] Other Start: 04-01-2023 Telephone encounter Demario Rolle [facility] Start: 03-18-2023 End: 03-18-2023 ambulatory Demario Rolle Other [facility] Other Start: 03-18-2023 Telephone encounter Demario Rolle [facility] Start: 03-13-2023 End: 03-13-2023 ambulatory Demario Rolle Other [facility] Other Start: 03-13-2023 Encounter for genera l adult medical examination without abnormal findings Demario Rolle [facility] Start: 03-13-2023 Periodic preventive med est patient 40-64yrs Demario Rolle [facility] Start: 02-26-2023 End: 02-26-2023 ambulatory ANGEL JOSHUA Not Available Start: 11-12-2022 End: 11-12-2022 ambulatory Demario Rolle Other [facility] Other Start: 11-12-2022 Telephone encounter Demario Rolle [facility] Start: 09-07-2022 End: 09-07-2022 ambulatory Demario Rolle Other [facility] Other Start: 09-07-2022 Office outpatient vi sit 15 minutes Demario Ball [facility] Start: 03-17-2022 End: 03-18-[address] DEMARIO ROLLE Facility:[facility] Start: 03-14-2022 End: 03-14-2022 ambulatory Demario Rolle Other [facility] Other Start: 03-14-2022 Encounter for genera l adult medical examination without abnormal findings Demario Rolle [facility] Start: 03-14-2022 Periodic preventive med est patient 40-64yrs Demario Aquilino [facility] Start: 03-12-2022 Annual wellness visit Demario Rolle Other [facility] Other Start: 02-13-2022 End: 02-14-[address] ANGEL HINOJOSA Facility:[facility] Start: 02-05-2022 End: 02-06-[address] ANGEL HINOOJSA Facility:[facility] Start: 09-13-2021 Adult health examination Jose Rolle Other [facility] Other Start: 09-13-2021 Gynecological examin ation normal Demario Rolle Other [facility] Other Start: 06-25-2018 Patient encounter procedure Facility:[id number] Procedures Date Procedure Procedure Detail Performing Clinician Start: 02-22-2023 Mammography Angel jaime DO Work Phone: Start: 06-25-2018 Antibody screen Comment on above: Order Comment: CONSE RVATION CBN: NO [place]: MAIN Transfusion Status: CONSERVATION Blood Bank service requested: TYPE AND SCREEN Comments To Phleb: IN SDS Result Comment: TYPE AND SCREEN PERFORMED IN [facility] ON 06.12.18. Performed By: #### B 100.0200 #### Test performed at: [address] [address] Start: 06-12-2018 Antibody screen Comment on above: Order Comment: CBN: YES [place]: MAIN Transfusion Status: CONSERVATION Blood Bank service requested: TYPE AND SCREEN Specimen Comment: SURG 06/25 Performed By: #### B 100.0201 #### Test performed at: [address] [place], [place] [address] End: 09-19-2021 Depression screening Demario Rolle Other H/O: hysterectomy Demario Heredia all Other Hormone replacement therapy Demario Rolle Other Hormone replacement therapy Demario Rolle Other Hysterectomy Demario Rolle Other Screening for malign ant neoplasm of breast Demario Rolle Other Plan of Treatment Date Care Activity Detail Author Start: 05-07-2024 End: 05-07-2024 Patient encounter procedure 05/07/2024 11:25 AM EST Office Visit [facility] [address] [place] [id number] Concepicon Wilde APRN-IT IN[employer]ATION ARCHITECT [address] [place] [address] [facility] Start: 03-12-2024 End: 03-12-2024 Patient encounter procedure 03/12/2024 8:30 AM EST Office Visit [facility] [address] [place] [address] Angel Hinojosa DO [address] [place] [address] [facility] Start: 02-23-2024 Screening for malign ant neoplasm of breast Mammogram [facility] Start: 11-03-2023 Influenza vaccination Influenza Vacc ine (#1) [facility] Start: 2000 Screening for malign ant neoplasm of cervix [facility] Start: 11-07-1991 Screening for malign ant neoplasm of cervix Pap Smear [facility] Start: 1970 Screening for malign ant neoplasm of colon [facility] Payers Date Payer Category Payer Private Health Insurance [facility] [id number] 2017-Present [address] [address] [place] [address] [id number] 1970 Unknown [id number]. 2.356 1970 Unknown [id number] [id number]. 2.593 1970 Unknown [id number] [id number]. 2.593 1970 Unknown [id number] [id number]. 2.593 1970 Unknown [id number] [id number]. 2.1259 1970 Unknown [id number] [id number]. 2.1259 1970 Unknown [id number]. 2.1259 1959 Private Health Insurance [id number] Social History Date Type Detail Facility Start: 05-07-2023 Sex Assigned At N [facility] Other Start: 05-07-2023 Tobacco smoking status NHIS Never smoked tobacco [facility] Start: 05-07-2023 Tobacco use and exposure Smokeless tobacco non-user [facility] Start: 05-07-2023 History of Social function [facility] Start: 1970 Sex assigned at Female [facility] Start: 02-25-2023 Gender identity Identifies as female gender (finding) [facility] History of Present illness Narrative 10-17-2023 Tawana Mohamud LPN - 10/17/2023 3:46 PM EDT Note Date & Type Note Facility 10-17-2023 History of Presen t illness Narrative 10/17/23 3:50pm Called patient to inform her that Dr. Nuñez had reviewed her diagnostic mammogram and recommended screening breast ultrasound. Patient stated she had all this done a few months ago and at time of diagnostic mammogram was informed by Radiologist that breast ultrasounds were not needed. Informed patient that nursing would discuss this with Dr. Hinojosa next week and then reach back out to her either way. [facility] Tawana Mohamud LPN documented in this encounter [facility] Evaluation note 03-13-2023 Note Date & Type [...] of pancreatic cancer, weight loss and nausea [facility] Other Evaluation note 11-12-2022 Note Date & Type Note Facility 11-12-2022 Evaluation note Encounter Date Diagnosis Assessment Notes Nov, Essential (primary) hypertension (ICD-10 - I10) [facility] Other Evaluation note 09-07-2022 Note Date & [...] for congestion, Tylenol for pain and fever. [facility] Other Evaluation note 03-14-2022 Note Date & [...] to adverse effects w/ BP and CVI [facility] Other Evaluation note Note Date & Type Note Facility Evaluation note No Information [facility] Other Evaluation note Note Date & Type Note Facility Evaluation note Diagnosis Family history of cancer Family history of unspecified malignant neoplasm Dense breast tissue documented in this encounter [facility] History general Narrative - Reported Note Date [...] back surgeries Hospitalization History see surgical history [facility] Other History general Narrative - Reported Note [...] x 4 Hospitalization History see surgical history [facility] Other Summary Purpose Family History No Family History Records FoundNo Family History Records FoundNo Family History Records FoundNo Family History Records FoundNo Family History Records Found Advance Directives No Advanced Directives Records FoundNo Advanced Directives Records FoundNo Advanced Directives Records FoundNo Advanced Directives Records FoundNo Advanced Directives Records Found Hospital Course Note NAME: LUANNE NINO MR #: [id number] ADMIT DATE: 06/25/2018 DISCHARGE DATE: 06/28/2018 DISCHARGE [...] section and content) DATE CREATED AUTHOR 07/04/2018 [facility] [facility] DATE CREATED AUTHOR AUTHOR'S ORGANIZ ATION 09/25/2018 [facility] DATE CREATED AUTHOR AUTHOR'S ORGANIZ ATION 05/02/2021 [facility] DATE CREATED AUTHOR AUTHOR'S ORGANIZ ATION 03/17/2022 [facility] DATE CREATED AUTHOR AUTHOR'S ORGANIZ ATION 07/31/2023 [facility] EPIC REASON FOR VISIT (unrecogniz ed section and content) 6 MONTH FOLLOW UP6 month Fol low upRefillsWellness examNo InformationMRI resultsLab results Care Teams (unrecognized sec tion and content) Skate Hop Relationship Specialty Start Date End Date Demario Rolle MD [address] [place] [id number] PCP - General 02/25/23 FOR RECORDS PERTAINING TO PATIENTS WHO ARE [...] BE BASED ON THE PRIMARY CLINICAL RECORDS. [employer] provides no warranty or guarantee of the accuracy or completeness of information in this document.
[2024-03-17 14:11] LABS: Age Gdln ACOG Testing Note (.); HPV Aptima Negative (Negative); IGP, Aptima HPV, rfx 16/18,45 Note (.)
== END 2024-03-12 19:47 | disposition home or self-care (01) ==
LOC: LAB 19:46
PROVIDERS: PCP Internal Medicine; Visit Provider Obstetrics & Gynecology
DX: Z01.419 Encounter for gynecological examination (general) (routine) without abnormal findings (principal)
CPT/HCPCS: 87624; 88175

== ENCOUNTER 2024-05-09 08:20 | Outpatient (OUT) | payer OTHER, SELFPAY ==
--- OUTSIDE RECORDS SUMMARY | 2024-05-09 08:25 | XMS_ITS | CCD ---
Author Organization [facility] Care Team Providers Care Radiology Physician Name Role Phone AQUILINO, DR SOTOMAYOR Admitting Unavailable AQUILINO, DR SOTOMAYOR Attending Unavailable AQUILINO, DR SOTOMAYOR Primary Care Unavailable AQUILINO, DR SOTOMAYOR Consulting Unavailable ASHIHS, DR ORTIZ Admitting Unavailable ASHISH, DR ORTIZ Attending Unavailable AQUILINO, DR SOTOMAYOR Primary Care Unavailable BROKEN ARROW, DR MARCELINA Kennedy Consulting Unavailable ASHISH, DR ORTIZ Consulting Unavailable ASHISH, DR ORTIZ Admitting Unavailable ASHISH, DR ORTIZ Attending Unavailable AQUILINO, DR SOTOMAYOR Primary Care Unavailable ASHISH, DR ORTIZ Consulting Unavailable ZIEBER, DR CRISTINE Garnica Consulting Unavailable Demario Rolle Unavailable Demario Rolle MD Primary Care Provider CONCEPCION WILDE Attending Unavailable ANGEL HINOJOSA Attending Unavailable ANGEL HINOJOSA Attending Unavailable Allergies Allergy Classification Reported Allergen(s) Allergy Type Date of Onset Reaction(s) Facility (2 sources) patient allergy list reviewed by nurse or physicia Propensity to adverse reactions 8 Comment:Done [facility] Other (2 sources) Allergies Reconciled Propensity to adverse reactions Unknown [facility] Other Medications Current Medications Medication Drug Class(es) Dates Sig (Normalized) Sig (Original) cyclobenzaprine hydrochloride 10 mg oral tablet (8 sources) Muscle Relaxant Start: 3 Cyclobenzaprine HCl 10 MG 1 Orally Once a day for 30 day(s) Mar, Active estrogens, conjugated (senior care) 1.25 mg oral tablet (14 sources) Estrogen Start: 3 End: 6 take 1 tablet by mouth once daily estrogens, conjugated, (Premarin) 1.25 MG tablet Indications: Postmenopausal state Take 1 tablet (1.25 mg) by mouth 1 (one) time each day at the same time 90 tablet 3 03/12/2024 03/07/2025 Active gabapentin 100 mg oral capsule (5 sources) Anti-epilepti c Agent Start: 4 take 2 capsules by mouth three times daily gabapentin (Neurontin) 100 MG capsule TAKE 2 CAPSULES BY MOUTH 3 TIMES A DAY FOR 30 DAYS 06/21/2023 Active hydroCHLOROthiazide 12.5 mg oral capsule (13 sources) Thiazide Diuretic Start: 3 take 1 capsule by mouth every twenty-four hours hydroCHLOROthiazide 12.5 MG 1 tablet in the morning Orally Once a day for 90 days Mar, Active Multivitamin preparation (7 sources) take 1 tablet by mouth once daily Multivitamin - 1 tablet Orally Once a day Active traMADol hydrochloride 50 mg oral tablet (5 sources) Opioid Agonist Start: 4 take 1 tablet [...] conditions (not mental disorders or infectious disease) (7 sources) Encounter for screening mammogram for malignant [...] of malignant neoplasm of digestive organs Episodic Residual codes; unclassified (2 sources) Postmenopausal state; Translations: [Asymptomatic menopausal state] 03-12-2024 Episodic Spondylosis; intervertebral disc disorders; other back [...] Results Test Name Value Interpretation Reference Range Facility IGP,APTIMA HPV,AGE GDLNon AGE GDLN ACOG TESTING Note . [facility] Comment on above: TESTS RESULT FLAG UN ITS REF RANGE LAB Clinician Provided Cytology Information Source.............Vagina No. of containers..01 ThinPrep Vial Age Algo ACOG Gi... FLAG LEGEND: L-Low Normal,H-High Normal,LL-Alert Low,HH-Alert High <-Panic Low,>-Panic High,A-Abnormal,AA-Critical Abnormal Performed at: [facility] [address] Araceli Sánchez MD, HPV APTIMA Negative Negative [facility] Comment on above: This nucleic acid am plification test detects fourteen high- risk HPV types (16,18,31,33,35,39,45,51,52,56,58,59,66,68) without differentiation. Performed at: = - [facility] [id number] Public Finance Specialist: Araceli Sánchez MD, Phone: [phone] Performed at: - [address] [id number] Public Finance Specialist: Araceli Sánchez MD, Phone: [phone] IGP, APTIMA HPV, RFX 16/18,45 Note . [facility] Comment on above: TESTS RESULT FLAG U NITS REF RANGE LAB DIAGNOSIS: 02 NEGATIVE FOR INTRAEPITHELIAL LESION OR MALIGNANCY. CELLULAR CHANGES ASSOCIATED WITH INFLAMMATION ARE PRESENT. Specimen adequacy: 02 Satisfactory for evaluation. No endocervical cells are present. This is consistent with a history of hysterectomy. Performed by: [place] Manager Pet (ASC) . 02 Note: Note 02 The Pap smear is a screening test designed to aid in the detection of premalignant and malignant conditions of the uterine cervix. It is not a diagnostic procedure and should not be used as the sole means of detecting cervical cancer. Both false-positive and false-negative reports do occur. Test Methodology: Note 02 This liquid based ThinPrep(R) pap test was screened with the use of an image guided system. HPV Genotype Reflex Note 02 Criteria not met, HPV Genotype not performed. FLAG LEGEND: L-Low Normal,H-High Normal,LL-Alert Low,HH-Alert High <-Panic Low,>-Panic High,A-Abnormal,AA-Critical Abnormal Performed at: [address] [address] Araceli Sánchez MD, SPATULA[facility] Cytology Cervical or vaginal smear or scraping studyOrdered By: Mary Frederick on 02-26-2023 [facility] CBC AUTO DIFFon 03-17-2022 BASO # 0.0 103/ul Normal 0.0-0.1 [facility] Comment on above: Performed By: #### C BC #### [facility] [address] [place] [address] Dr. Dong Mack Basophils/100 WBC (Bld) 0.7 % Normal 0.2-2.0 [facility] Comment on above: Performed By: #### C BC #### [facility] [address] [address] [address] Dong Mack EO # 0.1 103/ul Normal 0.0-0.7 [facility] Comment on above: Performed By: #### C BC #### [facility] [address] [address] [address] Dong Mack Eosinophils/100 WBC (Bld) 2.2 % Normal 0.9-7.0 [facility] Comment on above: Performed By: #### C BC #### [facility] [address] [place] [address] Dr. Dong Mack Erythrocyte distribution width (RBC) [Ratio] 11.8 % Normal 11.0-15.0 [facility] Comment on above: Performed By: #### C BC #### [facility] [address] [place] [address] Dr. Dong Mack Hematocrit (Bld) [Volume fraction] 39.6 % Normal 36.0-48.0 [facility] Comment on above: Performed By: #### C BC #### [facility] [address] [place] [address] Dr. Dong Mack Hemoglobin (Bld) [Mass/Vol] 13.9 g/dL Normal 12.0-16.0 [facility] Comment on above: Performed By: #### C BC #### [facility] [address] [place] [address] Dr. Dong Mack IG # 0.02 10e3/ul Normal 0.00-0.03 [facility] Comment on above: Performed By: #### C BC #### [facility] [address] [place] [address] Dr. Dong Mack IG % 0.4 % Normal 0.0-0.5 [facility] Comment on above: Performed By: #### C BC #### [facility] [address] [place] [address] Dr. Dong Mack LYMPH # 2.3 103/ul Normal 1.2-3.8 [facility] Comment on above: Performed By: #### C BC #### [facility] [address] [place] [address] Dr. Dong Mack Lymphocytes/100 WBC (Bld) 42.7 % Normal 20.5-60.0 [facility] Comment on above: Performed By: #### C BC #### [facility] [address] [place] [address] Dr. Dong Mack MANUAL DIFF REQ NO Normal [facility] Comment on above: Performed By: #### C BC #### [facility] [address] [address] [address] Dong Mack MCH (RBC) [Entitic mass] 31.4 pg Normal 26.7-34.0 [facility] Comment on above: Performed By: #### C BC #### [facility] [address] [place] [address] Dr. Dong Mack MCHC (RBC) [Mass/Vol] 35.1 g/dL Normal 29.9-35.2 [facility] Comment on above: Performed By: #### C BC #### [facility] [address] [place] [address] Dr. Dong Mack MCV (RBC) [Entitic vol] 89.4 fL Normal 81.0-99.0 [facility] Comment on above: Performed By: #### C BC #### [facility] [address] [place] [address] Dr. Dong Mack MONO # 0.4 103/ul Normal 0.3-0.8 [facility] Comment on above: Performed By: #### C BC #### [facility] [address] [place] [address] Dr. Dong Mack Monocytes/100 WBC (Bld) 6.9 % Normal 1.7-12.0 [facility] Comment on above: Performed By: #### C BC #### [facility] [address] [place] [address] Dr. Dong Mack NEUT # 2.5 103/ul Normal 1.4-6.5 [facility] Comment on above: Performed By: #### C BC #### [facility] [address] [place] [address] Dr. Dong Mack Neutrophils/100 WBC (Bld) 47.1 % Normal 43.0-75.0 [facility] Comment on above: Performed By: #### C BC #### [facility] [address] [place] [address] Dr. Dong Mack Platelet mean volume (Bld) [Entitic vol] 10.7 fL Normal 9.5-13.5 [facility] Comment on above: Performed By: #### C BC #### [facility] [address] [address] [address] Dong Mack PLT 280 103/ul Normal 150-450 [facility] Comment on above: Performed By: #### C BC #### [facility] [address] [address] [address] Dong Mack RBC 4.43 106/ul Normal 4.20-5.40 [facility] Comment on above: Performed By: #### C BC #### [facility] [address] [address] [address] Dong Mack WBC 5.3 103/ul Normal 4.0-11.0 [facility] Comment on above: Performed By: #### C BC #### [facility] [address] [place] [address] Dr. Dong Mack LIPID PROFILEon 03-17-2022 CHOL-HDL RATIO NORM SEE BELOW Normal [facility] Comment on above: Result Comment: 3.3 - 4.4 LOW RISK 4.4 - 7.1 AVERAGE RISK 7.1 - 11.0 MODERATE RISK >11.0 HIGH RISK Performed By: #### L IPID, TSH, CMP #### [facility] [address] [place] [address] Dr. Dong Mack Cholesterol [Mass/Vol] 254 mg/dL Critically high <=200 [facility] Comment on above: Performed By: #### L IPID, TSH, CMP #### [facility] [address] [place] [address] Dr. Dong Mack Cholesterol in HDL [Mass/Vol] 72 mg/dL Critically high 40-60 [facility] Comment on above: Performed By: #### L IPID, TSH, CMP #### [facility] [address] [place] [address] Dr. Dong Mack Cholesterol in LDL [Mass/Vol] 152.4 mg/dL Normal [facility] Comment on above: Performed By: #### L IPID, TSH, CMP #### [facility] [address] [place] [address] Dr. Dong Mack Cholesterol.total/ Cholesterol in HDL [Mass ratio] 3.5 {ratio} Normal [facility] Comment on above: Performed By: #### L IPID, TSH, CMP #### [facility] [address] [place] [address] Dr. Dong Mack HDL NORMAL > or = 60 mg/dl - LO W CARDIOVASCULAR RISK <40 mg/dl - HIGH CARDIOVASCULAR RISK Normal [facility] Comment on above: Performed By: #### L IPID, TSH, CMP #### [facility] [address] [place] [address] Dr. Dong Mack LDL CALC NORMAL SEE BELOW Normal [facility] Comment on above: Result Comment: <100 mg/dl OPTIMAL 100 - 129 mg/dl NEAR OR ABOVE OPTIMAL 130 - 159 mg/dl BORDERLINE HIGH 160 - 189 mg/dl HIGH >190 mg/dl VERY HIGH Performed By: #### L IPID, TSH, CMP #### [facility] [address] [place] [address] Dr. Dong Mack Triglyceride [Mass/Vol] 148 mg/dL Normal <=150 [facility] Comment on above: Performed By: #### L IPID, TSH, CMP #### [facility] [address] [place] [address] Dr. Dong Mack VLDL CALC 29.6 mg/dL Normal [facility] Comment on above: Performed By: #### L IPID, TSH, CMP #### [facility] [address] [place] [address] Dr. Dong Mack PROF 14(COMP METB)on 023 Albumin [Mass/Vol] 3.8 g/dL Normal 3.4-5.0 [facility] Comment on above: Performed By: #### L IPID, TSH, CMP #### [facility] [address] [place] [address] Dr. Dong Mack Albumin/Globulin [Mass ratio] 1.2 {ratio} Normal [facility] Comment on above: Performed By: #### L IPID, TSH, CMP #### [facility] [address] [place] [address] Dr. Dong Mack ALP [Catalytic activity/Vol] 52 U/L Normal 46-116 [facility] Comment on above: Performed By: #### L IPID, TSH, CMP #### [facility] [address] [place] [address] Dr. Dong Mack ALT [Catalytic activity/Vol] 27 U/L Normal 14-59 [facility] Comment on above: Performed By: #### L IPID, TSH, CMP #### [facility] [address] [place] [address] Dr. Dong Mack Anion gap [Moles/Vol] 8.1 mmol/L Normal [facility] Comment on above: Performed By: #### L IPID, TSH, CMP #### [facility] [address] [place] [address] Dr. Dong Mack AST [Catalytic activity/Vol] 22 U/L Normal 15-37 [facility] Comment on above: Performed By: #### L IPID, TSH, CMP #### [facility] [address] [place] [address] Dr. Dong Mack Bilirubin [Mass/Vol] 0.7 mg/dL Normal 0.2-1.0 [facility] Comment on above: Performed By: #### L IPID, TSH, CMP #### [facility] [address] [place] [address] Dr. Dong Mack Calcium [Mass/Vol] 9.2 mg/dL Normal 8.5-10.1 [facility] Comment on above: Performed By: #### L IPID, TSH, CMP #### [facility] [address] [place] [address] Dr. Dong Mack Chloride [Moles/Vol] 103 mmol/L Normal 98-107 [facility] Comment on above: Performed By: #### L IPID, TSH, CMP #### [facility] [address] [place] [address] Dr. Dong Mack CO2 [Moles/Vol] 33.9 mmol/L Critically high 21.0-32.0 [facility] Comment on above: Performed By: #### L IPID, TSH, CMP #### [facility] [address] [address] [address] Dong Mack Creatinine [Mass/Vol] 0.66 mg/dL Normal 0.55-1.02 [facility] Comment on above: Performed By: #### L IPID, TSH, CMP #### [facility] [address] [address] [address] Dong Mack EGFR-AF ARMENIAN >60 Normal >=60 [facility] Comment on above: Performed By: #### L IPID, TSH, CMP #### [facility] [address] [address] [address] Dong Mack EGFR-NON AF ARMENIAN >60 Normal >=60 [facility] Comment on above: Performed By: #### L IPID, TSH, CMP #### [facility] [address] [address] [address] Dong Mack Globulin (S) [Mass/Vol] 3.3 g/dL Normal [facility] Comment on above: Performed By: #### L IPID, TSH, CMP #### [facility] [address] [address] [address] Dong Mack Glucose [Mass/Vol] 94 mg/dL Normal 74-106 [facility] Comment on above: Performed By: #### L IPID, TSH, CMP #### [facility] [address] [address] [address] Dong Mack Potassium [Moles/Vol] 4.0 mmol/L Normal 3.5-5.1 [facility] Comment on above: Performed By: #### L IPID, TSH, CMP #### [facility] [address] [address] [address] Dong Mack Protein [Mass/Vol] 7.1 g/dL Normal 6.4-8.2 [facility] Comment on above: Performed By: #### L IPID, TSH, CMP #### [facility] [address] [address] [address] Dong Mack Sodium [Moles/Vol] 141 mmol/L Normal 136-145 [facility] Comment on above: Performed By: #### L IPID, TSH, CMP #### [facility] [address] [place] [address] Dr. Dong Mack Urea nitrogen [Mass/Vol] 13.0 mg/dL Normal 7.0-18.0 [facility] Comment on above: Performed By: #### L IPID, TSH, CMP #### [facility] [address] [place] [address] Dr. Dong Mack Urea nitrogen/Creatinin e [Mass ratio] 19.7 mg/mg Normal [facility] Comment on above: Performed By: #### L IPID, TSH, CMP #### [facility] [address] [place] [address] Dr. Dong Mack TSHon 03-17-2022 TSH 1.223 uIU/mL Normal 0.358-3.740 [facility] Comment on above: Performed By: #### L IPID, TSH, CMP #### [facility] [address] [place] [address] Dr. oDng Mack PAP ACOG PANEL 2: 30 to 65on 02-13-[address] [facility] Comment on above: Result Comment: Perf ormed at: WB Performed By: #### [id number] #### [facility] [address] [place] [address] Dr. Dong Mack Age Gdln ACOG Testing 30-65 [facility] Comment on above: Performed By: #### [id number] #### [facility] [address] [place] [address] Dr. Dong Mack DIAGNOSIS: Comment Normal [facility] Comment on above: Result Comment: NEGA TIVE FOR INTRAEPITHELIAL LESION OR MALIGNANCY. Performed at: WB Performed By: #### [id number] #### [facility] [address] [place] [address] Dr. Dong Mack HPV Aptima Negative Normal Negative [facility] Comment on above: Result Comment: This nucleic acid amplification test detects fourteen high-risk HPV types (16,18,31,33,35,39,45,51,52,56,58,59,66,68) without differentiation. Performed at: =G Performed By: #### [id number] #### [facility] [address] [place] [address] Dr. Dong Mack HPV Genotype Reflex Comment Normal [facility] Comment on above: Result Comment: Crit erjustin not met, HPV Genotype not performed. Performed at: WB Performed By: #### [id number] #### [facility] [address] [place] [address] Dr. Dong Mack Methodology: Comment Normal [facility] Comment on above: Result Comment: This liquid based ThinPrep(R) pap test was screened with the use of an image guided system. Performed at: WB Performed By: #### [id number] #### [facility] [address] [place] [address] Dr. Dong Mack Note: Comment Normal [facility] Comment on above: Result Comment: The Pap smear is a screening test designed to aid in the detection of premalignant and malignant conditions of the uterine cervix. It is not a diagnostic procedure and should not be used as the sole means of detecting cervical cancer. Both false-positive and false-negative reports do occur. . Performed at: WB Performed By: #### [id number] #### [facility] [address] [place] [address] Dr. Dong Mack Performed by: Comment Normal [facility] Comment on above: Result Comment: Nithya Keen, Manager Pet Performed at: WB Performed By: #### [id number] #### [facility] [address] [place] [address] Dr. Dong Mack Specimen adequacy: Comment Normal [facility] Comment on above: Result Comment: Sati sfactory for evaluation. Endocervical and/or squamous metaplastic cells (endocervical component) are present. Performed at: WB Performed By: #### [id number] #### [facility] [address] [place] [address] Dr. Dong Mack XR DEXA BONE DENSITYon [...] by: CRISTINE POPE Date: 2022-02-13 08:43 Normal [facility] MAMM SCREEN 3D RAMEZ CADon 02-05-2022 MG MAMM SCREEN 3D RAMEZ CAD Patient: LUANNE NINO Exam Date: 02/05/2022 : 1970 Gender:F Ordering : DR ANGEL HINOJOSA . Admission #: [id number] Family : DR DEMARIO ROLLE D.O. Order #: [id number] CLICK HERE TO VIEW EXAM RADIOLOGY REPORT [...] melanoma cancer at age 41. LOCATION: [facility] BREAST COMPOSITION: Heterogeneously dense,which may obscure [...] Triana MD on 02/05/2022 at 09:[address] [facility] COVID-19 Antigenon 2 COVID-19 Antigen Healthcare Worker?: David Austin Reference Carli Reference Negative SARS-CoV+SARS-CoV-2 (COVID-19) Ag [...] its performance Carli Disclaimer characteristic determined by [facility] and Carli Disclaimer validated at [facility]. This Carli Disclaimer test has not been FDA cleared or approved. This Carli Disclaimer test has been authorized by FDA under an Emergency Use Carli Disclaimer Authorization (EUA). This test has been validated Crali Disclaimer in accordance with the FDA's Guidance [...] is terminated or revoked sooner. PERFORMED BY: [place] [address] PATHOLOGIST CASE ADVOCATE WAQAS DÍAZ M.D. [facility] Comment on above: Performed By: #### C OVID-19 CARLI, SOFIANEG #### [facility] [address] [place] [address] Carli Ag Negativeon 04-25-19 Carli Ag Negative Negative Normal Negative [facility] Comment on above: Result Comment: This is a duplicate Carli SARS Antigen (ANTONIO) result to be used for statistical tracking purpose only. PERFORMED BY: [place] [address] PATHOLOGIST CASE ADVOCATE WAQAS DÍAZ M.D. Performed By: #### C OVID-19 CARLI, SOFIANEG #### [facility] [address] [place] [address] LUMBAR SPINE 2 OR 3 VIEWSon 09-18-2018 LUMBAR SPINE 2 OR 3 VIEWS STUDY: LUMBAR SPINE 2 OR 3 VIEWS; 09/18/2018 10:45 am INDICATION: PAIN. COMPARISON: Intraoperative radiographs from 06/25/2018 ACCESSION NUMBER(S): [id number] ORDERING CLINICIAN: Emely Puckett FINDINGS: Interbody graft at L3-4. Posterior metallic fusion hardware with laminectomy defects L4-S1. Grade 2-3 anterolisthesis L5-S1 unchanged. No new fracture subluxation. No new disc height loss. Degenerative changes appear similar prior exam. IMPRESSION: L3-4 and L4-S1 fusion changes. Normal [facility] BASIC MET PANELon 06-26-2018 Anion gap [Moles/Vol] 8 mmol/L Normal 6-18 [facility] Comment on above: Order Comment: CONSE RVATION Performed By: #### L 500.88113, L500.06767, L500.51856 #### Test performed at: [address] [address] Calcium [Mass/Vol] 8.3 mg/dL Low 8.5-10.1 [facility] Comment on above: Order Comment: CONSE RVATION Performed By: #### L 500.27477, L500.45518, L500.97650 #### Test performed at: [address] [address] Chloride [Moles/Vol] 103 mmol/L Normal 98-107 [facility] Comment on above: Order Comment: CONSE RVATION Performed By: #### L 500.14871, L500.75252, L500.48902 #### Test performed at: [address] [address] CO2 [Moles/Vol] 30 mmol/L Normal 21-32 [facility] Comment on above: Order Comment: CONSE RVATION Performed By: #### L 500.58396, L500.02370, L500.39305 #### Test performed at: [address] [address] Creatinine [Mass/Vol] 0.620 mg/dL Normal 0.550-1.020 [facility] Comment on above: Order Comment: CONSE RVATION Performed By: #### L 500.22076, L500.18595, L500.73118 #### Test performed at: [address] [address] Glucose [Mass/Vol] 139 mg/dL High 70-99 [facility] Comment on above: Order Comment: CONSE RVATION Result Comment: Fast ing GLUCOSE reference range has been updated per (ADA) [place] [employer]'s recommendation. 05/27/2018 Performed By: #### L 500.48865, L500.89345, L500.05774 #### Test performed at: [address] [address] OSM 284 mosm/kg Normal 270-300 [facility] Comment on above: Order Comment: CONSE RVATION Performed By: #### L 500.65089, L500.02169, L500.50719 #### Test performed at: [address] [address] Potassium [Moles/Vol] 4.3 mmol/L Normal 3.5-5.1 [facility] Comment on above: Order Comment: CONSE RVATION Performed By: #### L 500.64961, L500.39520, L500.09187 #### Test performed at: [address] [address] Sodium [Moles/Vol] 137 mmol/L Normal 136-145 [facility] Comment on above: Order Comment: CONSE RVATION Performed By: #### L 500.34458, L500.27273, L500.10264 #### Test performed at: [address] [address] Urea nitrogen [Mass/Vol] 5 mg/dL Low 7-18 [facility] Comment on above: Order Comment: CONSE RVATION Performed By: #### L 500.46762, L500.09923, L500.33867 #### Test performed at: [address] [address] CBC W/DIFFon 06-26-2018 BASO ABS 0.0 K/uL Normal 0.0-0.2 [facility] Comment on above: Order Comment: CONSE RVATION Performed By: #### L 200.09080 #### Test performed at: [address] [address] Basophils/100 WBC (Bld) 0.1 % Normal [facility] Comment on above: Order Comment: CONSE RVATION Performed By: #### L 200.79202 #### Test performed at: [address] [address] EOS ABS 0.0 K/uL Normal 0.0-0.5 [facility] Comment on above: Order Comment: CONSE RVATION Performed By: #### L 200.74858 #### Test performed at: [address] [address] Eosinophils/100 WBC (Bld) 0.0 % Normal [facility] Comment on above: Order Comment: CONSE RVATION Performed By: #### L 200.95132 #### Test performed at: [address] [address] IG % 0.5 % Normal [facility] Comment on above: Order Comment: CONSE RVATION Performed By: #### L 200.11569 #### Test performed at: [address] [address] IG ABS 0.07 K/uL High 0-0.05 [facility] Comment on above: Order Comment: CONSE RVATION Performed By: #### L 200.52539 #### Test performed at: [address] [address] Lymphocytes (Bld) [#/Vol] 1.2 10*3/uL Normal 1.2-3.5 [facility] Comment on above: Order Comment: CONSE RVATION Performed By: #### L 200.52124 #### Test performed at: [address] [address] Lymphocytes/100 WBC (Bld) 9.2 % Normal [facility] Comment on above: Order Comment: CONSE RVATION Performed By: #### L 200.58482 #### Test performed at: [address] [address] MONO ABS 0.8 K/uL Normal 0.0-1.0 [facility] Comment on above: Order Comment: CONSE RVATION Performed By: #### L 200.59079 #### Test performed at: [address] [address] Monocytes/100 WBC (Bld) 5.7 % Normal [facility] Comment on above: Order Comment: CONSE RVATION Performed By: #### L 200.04625 #### Test performed at: [address] [address] NEUTROPHIL ABS 11.4 K/uL High 1.4-6.6 [facility] Comment on above: Order Comment: CONSE RVATION Performed By: #### L 200.56128 #### Test performed at: [address] [address] Neutrophils/100 WBC (Bld) 84.5 % Normal [facility] Comment on above: Order Comment: CONSE RVATION Performed By: #### L 200.00049 #### Test performed at: [address] [address] Erythrocyte distribution width (RBC) [Ratio] 11.5 % Normal 11.5-14.5 [facility] Comment on above: Order Comment: CONSE RVATION Performed By: #### L 200.82573 #### Test performed at: [address] [address] Hematocrit (Bld) [Volume fraction] 31.4 % Low 36.0-48.0 [facility] Comment on above: Order Comment: CONSE RVATION Performed By: #### L 200.69862 #### Test performed at: [address] [address] Hemoglobin (Bld) [Mass/Vol] 11.2 g/dL Low 12.0-15.0 [facility] Comment on above: Order Comment: CONSE RVATION Result Comment: Delt a: 14.1 on 06/12/18-1047 Performed By: #### L 200.52515 #### Test performed at: [address] [address] MCH (RBC) [Entitic mass] 32.3 pg Normal 25.4-34.6 [facility] Comment on above: Order Comment: CONSE RVATION Performed By: #### L 200.60359 #### Test performed at: [address] [address] MCHC (RBC) [Mass/Vol] 35.7 g/dL Normal 31.5-36.5 [facility] Comment on above: Order Comment: CONSE RVATION Performed By: #### L 200.04618 #### Test performed at: [place] [id number] MCV (RBC) [Entitic vol] 90.5 fL Normal 79.0-98.0 [facility] Comment on above: Order Comment: CONSE RVATION Performed By: #### L 200.63729 #### Test performed at: [address] [address] NRBC # 0.000 K/uL Normal 0-0.012 [facility] Comment on above: Order Comment: CONSE RVATION Performed By: #### L 200.25539 #### Test performed at: [address] [address] NRBC % 0.0 /100 WBC Normal 0-0.2 [facility] Comment on above: Order Comment: CONSE RVATION Performed By: #### L 200.69887 #### Test performed at: [address] [address] Platelet mean volume (Bld) [Entitic vol] 11.3 fL Normal 8.7-12.4 [facility] Comment on above: Order Comment: CONSE RVATION Performed By: #### L 200.40775 #### Test performed at: [address] [address] Platelets (Bld) [#/Vol] 208 10*3/uL Normal 140-440 [facility] Comment on above: Order Comment: CONSE RVATION Performed By: #### L 200.12021 #### Test performed at: [address] [address] RBC (Bld) [#/Vol] 3.47 10*6/uL Low 3.5-5.5 [facility] Comment on above: Order Comment: CONSE RVATION Performed By: #### L 200.56156 #### Test performed at: [address] [address] WBC (Bld) [#/Vol] 13.5 10*3/uL High 3.9-11.0 [facility] Comment on above: Order Comment: CONSE RVATION Result Comment: Delt a: 6.5 on 06/12/18 Performed By: #### L 200.47425 #### Test performed at: [address] [address] EST. CREAT CLRon 06-26-2018 Creatinine [Mass/Vol] 159.375 ML/MIN Normal [facility] Comment on above: Order Comment: CBN: YES [place]: MAIN Result Comment: This result is an ESTIMATED blood creatinine clearance value which is derived from the patient age, sex, weight, and previous blood creatinine result. Performed By: #### L 500.28419, L500.39361 #### Test performed at: [address] [address] GFR ESTIMATEon 06-26-2018 IF AMER > 60 Normal > 60 [facility] Comment on above: Order Comment: CBN: YES [place]: MAIN Result Comment: eGFR (Estimated GFR) Units of measure:mL/min/1.73 meters sq. *CALCULATION REVISED 12/21/2014;IDMS-traceable MDRD equation eGFR is derived from the reexpressed MDRD Study equation using the following parameters: serum creatinine, age, gender and race. An eGFR<60 mL/min/1.73m2 for >3 months is consistent with chronic kidney disease. Refer to KDOQI guidelines for clinical interpretation. Performed By: #### L 500.56982, L500.38395 #### Test performed at: [place] [address] IF non-AFR AMER > 60 Normal > 60 [facility] Comment on above: Order Comment: CBN: YES [place]: MAIN Performed By: #### L 500.68569, L500.58798 #### Test performed at: [place] [address] CONSULTATION REPORTon 2018 CONSULTATION REPORT NAME: LUANNE NINO MR#: [id number] MOLD MAKER PLASTER: Valencia Hernandez MD DATE OF CONSULTATION: 06/26/2018 [...] patient is medically stable. VALENCIA HERNANDEZ MD KH/MODL/[id number] [facility] PT NAME: LUANNE NINO MR#: [id number] [address] [place] [address] ACCT: [id number] : 70 CONSULTATION E/S: Valencia Hernandez MD 06/26/18 1221 Electronically Signed [facility] PT NAME: LUANNE NINO MR#: [id number] [address] [place] [address] ACCT: [id number] : 70 CONSULTATION Normal [facility] OPERATIVE REPORTon 9 OPERATIVE REPORT NAME: LUANNE NINO MR#: [id number] SURGEON: Casandra Russell MD DATE OF SURGERY: 06/25/2018 OPERATIVE REPORT SUPERVISOR FILM PROCESSING: Filiberto Kaur. PREOPERATIVE DIAGNOSIS: Right L5 radiculopathy [...] were able to stay in the midline [facility] PT NAME: LUANNE NINO MR#: [id number] [address] [place] [address] ACCT: [id number] : 70 OPERATIVE REPORT exposing just a [...] tolerated the procedure well. CASANDRA RUSSELL MD [facility] PT NAME: LUANNE NINO MR#: [id number] [address] [place] [address] ACCT: [id number] : 70 OPERATIVE REPORT JSA/MODL/[id number] E/S: Casandra Russell MD 06/30/18 1134 Electronically Signed [facility] PT NAME: LUANNE NINO MR#: [id number] [address] [place], [place] [id number] ACCT: [id number] : 70 OPERATIVE REPORT Normal [facility] TSon 06-25-2018 ABO and Rh group Nom (Bld) A POSITIVE Normal [facility] Comment on above: Order Comment: CONSE RVATION CBN: NO [place]: MAIN Transfusion Status: CONSERVATION Blood Bank service requested: TYPE AND SCREEN Comments To Phleb: IN SDS Performed By: #### B 100.0200 #### Test performed at: [place] [address] [place] [address] LUMBAR SPINE 1 VIEWon 2018 LUMBAR SPINE 1 VIEW STUDY: LUMBAR SPINE 1 VIEW;; 06/25/2018 11:10 am; 06/25/2018 12:20 pm INDICATION: REMOVAL HARDWARE , FORAMINOTOMY L4-S1; HARDWARE REMOVAL, FORAMINOTOMY L4-S1. COMPARISON: None. ACCESSION NUMBER(S): [id number]; [id number] ORDERING CLINICIAN: Casandra Russell FINDINGS: 2 lateral intraoperative views of the lumbar spine were performed for intraoperative localization. Please see procedure report for further details. IMPRESSION: Two lateral intraoperative views of the lumbar spine for localization. Please see procedure report for further details Normal [facility] LUMBAR SPINE 1 VIEW STUDY: LUMBAR SPINE 1 VIEW;; 06/25/2018 11:10 am; 06/25/2018 12:20 pm INDICATION: REMOVAL HARDWARE , FORAMINOTOMY L4-S1; HARDWARE REMOVAL, FORAMINOTOMY L4-S1. COMPARISON: None. ACCESSION NUMBER(S): [id number]; [id number] ORDERING CLINICIAN: Casandra Russell FINDINGS: 2 lateral intraoperative views of the lumbar spine were performed for intraoperative localization. Please see procedure report for further details. IMPRESSION: Two lateral intraoperative views of the lumbar spine for localization. Please see procedure report for further details Normal [facility] BASIC MET PANELon 06-12-2018 Anion gap [Moles/Vol] 10 mmol/L Normal 6-18 [facility] Comment on above: Order Comment: CBN: YES [place]: MAIN Performed By: #### L 500.25175, L500.52652 #### Test performed at: [place] [address] [place] [address] Calcium [Mass/Vol] 9.7 mg/dL Normal 8.5-10.1 [facility] Comment on above: Order Comment: CBN: YES [place]: MAIN Performed By: #### L 500.03055, L500.89398 #### Test performed at: [address] [address] Chloride [Moles/Vol] 104 mmol/L Normal 98-107 [facility] Comment on above: Order Comment: CBN: YES [place]: MAIN Performed By: #### L 500.38050, L500.31792 #### Test performed at: [address] [address] CO2 [Moles/Vol] 30 mmol/L Normal 21-32 [facility] Comment on above: Order Comment: CBN: YES [place]: MAIN Performed By: #### L 500.69335, L500.57591 #### Test performed at: [address] [address] Creatinine [Mass/Vol] 0.665 mg/dL Normal 0.550-1.020 [facility] Comment on above: Order Comment: CBN: YES [place]: MAIN Performed By: #### L 500.15470, L500.22238 #### Test performed at: [address] [address] Glucose [Mass/Vol] 98 mg/dL Normal 70-99 [facility] Comment on above: Order Comment: CBN: YES [place]: MAIN Result Comment: Fast ing GLUCOSE reference range has been updated per (ADA) [place] [employer]'s recommendation. 05/27/2018 Performed By: #### L 500.12009, L500.29414 #### Test performed at: [address] [address] OSM 288 mosm/kg Normal 270-300 [facility] Comment on above: Order Comment: CBN: YES [place]: MAIN Performed By: #### L 500.24788, L500.72333 #### Test performed at: [address] [address] Potassium [Moles/Vol] 4.5 mmol/L Normal 3.5-5.1 [facility] Comment on above: Order Comment: CBN: YES [place]: MAIN Performed By: #### L 500.92697, L500.75427 #### Test performed at: [address] [address] Sodium [Moles/Vol] 139 mmol/L Normal 136-145 [facility] Comment on above: Order Comment: CBN: YES [place]: MAIN Performed By: #### L 500.42416, L500.50287 #### Test performed at: [address] [address] Urea nitrogen [Mass/Vol] 13 mg/dL Normal 7-18 [facility] Comment on above: Order Comment: CBN: YES [place]: MAIN Performed By: #### L 500.14740, L500.87702 #### Test performed at: [address] [address] CBCon 06-12-2018 Erythrocyte distribution width (RBC) [Ratio] 11.9 % Normal 11.5-14.5 [facility] Comment on above: Order Comment: CBN: YES [place]: MAIN Performed By: #### L 200.38723 #### Test performed at: [address] [address] Hematocrit (Bld) [Volume fraction] 40.7 % Normal 36.0-48.0 [facility] Comment on above: Order Comment: CBN: YES [place]: MAIN Performed By: #### L 200.68435 #### Test performed at: [address] [address] Hemoglobin (Bld) [Mass/Vol] 14.1 g/dL Normal 12.0-15.0 [facility] Comment on above: Order Comment: CBN: YES [place]: MAIN Performed By: #### L 200.53366 #### Test performed at: [place] [address] MCH (RBC) [Entitic mass] 31.9 pg Normal 25.4-34.6 [facility] Comment on above: Order Comment: CBN: YES [place]: MAIN Performed By: #### L 200.70666 #### Test performed at: [address] [address] MCHC (RBC) [Mass/Vol] 34.6 g/dL Normal 31.5-36.5 [facility] Comment on above: Order Comment: CBN: YES [place]: MAIN Performed By: #### L 200.92547 #### Test performed at: [address] [address] MCV (RBC) [Entitic vol] 92.1 fL Normal 79.0-98.0 [facility] Comment on above: Order Comment: CBN: YES [place]: MAIN Performed By: #### L 200.18271 #### Test performed at: [address] [address] NRBC # 0.000 K/uL Normal 0-0.012 [facility] Comment on above: Order Comment: CBN: YES [place]: MAIN Performed By: #### L 200.37379 #### Test performed at: [address] [address] NRBC % 0.0 /100 WBC Normal 0-0.2 [facility] Comment on above: Order Comment: CBN: YES [place]: MAIN Performed By: #### L 200.41158 #### Test performed at: [address] [address] Platelet mean volume (Bld) [Entitic vol] 11.8 fL Normal 8.7-12.4 [facility] Comment on above: Order Comment: CBN: YES [place]: MAIN Performed By: #### L 200.12201 #### Test performed at: [place] [address] Platelets (Bld) [#/Vol] 246 10*3/uL Normal 140-440 [facility] Comment on above: Order Comment: CBN: YES [place]: MAIN Performed By: #### L 200.26990 #### Test performed at: [address] [address] RBC (Bld) [#/Vol] 4.42 10*6/uL Normal 3.5-5.5 [facility] Comment on above: Order Comment: CBN: YES [place]: MAIN Performed By: #### L 200.25560 #### Test performed at: [address] [address] WBC (Bld) [#/Vol] 6.5 10*3/uL Normal 3.9-11.0 [facility] Comment on above: Order Comment: CBN: YES [place]: MAIN Performed By: #### L 200.07013 #### Test performed at: [address] [address] GFR ESTIMATEon 06-12-2018 IF AMER > 60 Normal > 60 [facility] Comment on above: Order Comment: CBN: YES [place]: MAIN Result Comment: eGFR (Estimated GFR) Units of measure:mL/min/1.73 meters sq. *CALCULATION REVISED 12/21/2014;IDMS-traceable MDRD equation eGFR is derived from the reexpressed MDRD Study equation using the following parameters: serum creatinine, age, gender and race. An eGFR<60 mL/min/1.73m2 for >3 months is consistent with chronic kidney disease. Refer to KDOQI guidelines for clinical interpretation. Performed By: #### L 500.47219, L500.39311 #### Test performed at: [place] [id number] IF non-AFR AMER > 60 Normal > 60 [facility] Comment on above: Order Comment: CBN: YES [place]: MAIN Performed By: #### L 500.96791, L500.77178 #### Test performed at: [address] [address] TSPATon 06-12-2018 ABO and Rh group Nom (Bld) A POSITIVE Normal [facility] Comment on above: Order Comment: CBN: YES [place]: MAIN Transfusion Status: CONSERVATION Blood Bank service requested: TYPE AND SCREEN Specimen Comment: SURG 06/25 Performed By: #### B 100.0201 #### Test performed at: [address] [address] Vital Signs Date Time Vital Sign Value Performing Clinician Facility 03-12-2024 08:37-0500 Body mass index (BMI) [Ratio] 26.85 kg/m2 [facility] Work Phone: [facility] 03-12-2024 08:37-0500 Body weight 70.94 kg [facility] Work Phone: [facility] 03-12-2024 08:37-0500 Diastolic blood pressure 70 mm[Hg] [facility] Work Phone: [facility] 03-12-2024 08:37-0500 Systolic blood pressure 130 mm[Hg] [employer] Ashish DO Work Phone: [facility] 03-13-2023 08:30-0500 Body height 162.56 cm Demario Ball Other [facility] Other 03-13-2023 08:30-0500 Body mass index (BMI) [Ratio] 25.37 kg/m2 Demario Ball Other [facility] Other 03-13-2023 08:30-0500 Body weight 67.04 kg Demario Ball Other [facility] Other 03-13-2023 08:30-0500 Diastolic blood pressure 75 mm[Hg] Demario Ball Other [facility] Other 03-13-2023 08:30-0500 Respiratory rate 12 /min Demario Ball Other [facility] Other 03-13-2023 08:30-0500 Systolic blood pressure 125 mm[Hg] Demario Ball Other [facility] Other 09-07-2022 13:30-0400 Body height 162.56 cm Demario Ball Other [facility] Other 09-07-2022 13:30-0400 Body mass index (BMI) [Ratio] 26.19 kg/m2 Demario Ball Other [facility] Other 09-07-2022 13:30-0400 Body weight 69.22 kg Demario Ball Other [facility] Other 09-07-2022 13:30-0400 Diastolic blood pressure 76 mm[Hg] Demario Ball Other [facility] Other 09-07-2022 13:30-0400 Respiratory rate 12 /min Demario Ball Other [facility] Other 09-07-2022 13:30-0400 Systolic blood pressure 117 mm[Hg] Demario Ball Other [facility] Other 03-14-2022 09:30-0500 Body height 162.56 cm Demario Ball Other [facility] Other 03-14-2022 09:30-0500 Body mass index (BMI) [Ratio] 30.34 kg/m2 Demario Ball Other [facility] Other 03-14-2022 09:30-0500 Body weight 80.2 kg Demario Ball Other [facility] Other 03-14-2022 09:30-0500 Diastolic blood pressure 78 mm[Hg] Demario Rolle Other [facility] Other 03-14-2022 09:30-0500 Respiratory rate 12 /min Demario Rolle Other [facility] Other 03-14-2022 09:30-0500 Systolic blood pressure 122 mm[Hg] Demario Rolle Other [facility] Other Encounters Encounter Date Encounter Type Care Provider Facility Start: 03-12-2024 End: 03-12-2024 Bamboo flowsheet Angel Ashish DO Work Phone: [facility] Start: 03-12-2024 End: 03-17-2024 Bamboo flowsheet Angel Ashish DO Work Phone: [facility] Start: 03-12-2024 End: 03-17-2024 Clinisync Result Encounter Angel Ashish DO Work Phone: [facility] External Department Unsolicited Start: 03-12-2024 End: 03-12-2024 Patient encounter procedure Angel Ashish DO Work Phone: [facility] Start: 03-12-2024 End: 03-12-2024 Periodic preventive med est patient 40-64yrs Angel Ashish DO Work Phone: [facility] Comment on above: Breast cancer screen ing by mammogram; Well woman exam with routine gynecological exam; Postmenopausal state Start: 03-12-2024 End: 03-12-2024 ambulatory ANGEL ASHISH Not Available Start: 10-17-2023 End: 11-11-2023 Orders Only Angel Ashish DO Work Phone: [facility] Comment on above: Family history of ca ncer; Dense breast tissue Start: 07-30-2023 End: 07-30-2023 ambulatory ANGEL ASHISH Not Available Start: 05-07-2023 End: 05-07-2023 ambulatory CONCEPCION WILDE Not Available Start: 04-02-2023 End: 04-02-2023 ambulatory Demario Rolle Other [facility] Other Start: 04-02-2023 Telephone encounter Demario Rolle [facility] Start: 04-01-2023 End: 04-01-2023 ambulatory Demario Rolle Other [facility] Other Start: 04-01-2023 Telephone encounter Demario Rolle [facility] Start: 03-18-2023 End: 03-18-2023 ambulatory Demario Rolle Other [facility] Other Start: 03-18-2023 Telephone encounter Demario Rolle [facility] Start: 03-13-2023 End: 03-13-2023 ambulatory Demario Rolle Other [facility] Other Start: 03-13-2023 Encounter for genera l adult medical examination without abnormal findings Demario Rolle [facility] Start: 03-13-2023 Periodic preventive med est patient 40-64yrs Demario Rolle [facility] Start: 11-12-2022 End: 11-12-2022 ambulatory Demario Aquilino Other [facility] Other Start: 11-12-2022 Telephone encounter Demario Rolle [facility] Start: 09-07-2022 End: 09-07-2022 ambulatory Demario Aquilino Other [facility] Other Start: 09-07-2022 Office outpatient vi sit 15 minutes Demario Rolle [facility] Start: 03-17-2022 End: 03-18-[address] DEMARIO ROLLE Facility:[facility] Start: 03-14-2022 End: 03-14-2022 ambulatory Demario Rolle Other [facility] Other Start: 03-14-2022 Encounter for genera l adult medical examination without abnormal findings Demario Rolle [facility] Start: 03-14-2022 Periodic preventive med est patient 40-64yrs Demario Rolle [facility] Start: 03-12-2022 Annual wellness visit Demario Rolle Other [facility] Other Start: 02-13-2022 End: 02-14-[address] ANGEL HINOJOSA Facility:[facility] Start: 02-05-2022 End: 02-06-[address] ANGEL HINOJOSA Facility:[facility] Start: 09-13-2021 Adult health examination Jose Rolle Other [facility] Other Start: 09-13-2021 Gynecological examin ation normal Demario Rolle Other [facility] Other Start: 06-25-2018 Patient encounter procedure Facility:[id number] Procedures Date Procedure Procedure Detail Performing Clinician Start: 03-12-2024 IGP,APTIMA HPV,AGE GDLN Angelstickappso DO Work Phone: Start: 02-26-2023 Microscopic observat ion [Identifier] in Cervix by Cyto stain 500Shopso DO Work Phone: Start: 02-26-2023 Cytp cerv/vag auto t hin layer prep mnl screen Angel Ashish DO Work Phone: Start: 02-22-2023 Mammography Angel Fazi o DO Work Phone: Start: 06-25-2018 Antibody screen Comment on above: Order Comment: CONSE RVATION CBN: NO [place]: MAIN Transfusion Status: CONSERVATION Blood Bank service requested: TYPE AND SCREEN Comments To Phleb: IN SDS Result Comment: TYPE AND SCREEN PERFORMED IN G.PAT ON 06.12.18. Performed By: #### B 100.0200 #### Test performed at: [address] [address] Start: 06-12-2018 Antibody screen Comment on above: Order Comment: CBN: YES [place]: MAIN Transfusion Status: CONSERVATION Blood Bank service requested: TYPE AND SCREEN Specimen Comment: SURG 06/25 Performed By: #### B 100.0201 #### Test performed at: [facility] [address] [address] End: 09-19-2021 Depression screening Demario Rolle Other H/O: hysterectomy Demario Heredia all Other Hormone replacement therapy Demario Rolle Other Hormone replacement therapy Demario Rolle Other Hysterectomy Demario Rolle Other Screening for malign ant neoplasm of breast Demario Rolle Other Plan of Treatment Date Care Activity Detail Author Start: 02-27-2028 Screening for malignant neoplasm of cervix [facility] Start: 03-22-2025 End: 03-22-2025 Patient encounter procedure 03/22/2025 8:30 AM EST Office Visit [facility] [address] [id number] Angel Hinojosa DO [address] [place] [address] [facility] Start: 05-07-2024 End: 05-07-2024 Patient encounter procedure 05/07/2024 11:25 AM EST Office Visit [facility] [address] [place] [address] Concepcion Wilde, [employer] [address] [place] [address] [facility] Start: 03-12-2024 End: 03-12-2025 DXA Skeletal system Views for bone density DEXA bone density Imaging Routine Postmenopausal state Expected: 03/12/2024 (Approximate), Expires: 03/12/2025 [facility] Comment on above: Expected: 03/12/2024 (Approximate), Expires: 03/12/2025 Start: 03-12-2024 End: 05-10-2025 MG Breast - bilateral Screening Bilateral screening mammogram Imaging Routine Breast cancer screening by mammogram Expected: 03/12/2024, Expires: 05/10/2025 [facility] Work Phone: Comment on above: Expected: 03/12/2024 , Expires: 05/10/2025 Start: 03-12-2024 End: 03-12-2024 Patient encounter procedure [facility] Comment on above: Arrived Start: 02-23-2024 Screening for malignant neoplasm of breast Mammogram [facility] Start: 11-03-2023 Influenza vaccination Influenza Vacc ine (#1) [facility] Start: 2000 Screening for malignant neoplasm of cervix [facility] Start: 11-07-1991 Screening for malignant neoplasm of cervix Pap Smear [facility] Start: 1970 Screening for malignant neoplasm of colon [facility] THIN PREP TIS PAP AN D HR HPV DNA THIN PREP TIS PAP AND HR HPV DNA Pathology and Cytology Routine Well woman exam with routine gynecological exam Ordered: 03/12/2024 [facility] Comment on above: Ordered: 03/12/2024 Payers Date Payer Category Payer Private Health Insurance [id number] 1970 Unknown [id number] 1970 Unknown [id number] 2.16.84 [id number] 1970 Unknown [id number] 2.16.84 [id number] 1970 Unknown [id number] 2.16.84 [id number] 1970 Unknown [id number] 2.16.84 [id number] 1970 Unknown [id number] 2.16.84 [id number] 1970 Unknown [id number] 2.16.84 [id number] 1959 Private Health Insurance [id number] Social History Date Type Detail Facility Start: 05-07-2023 Sex Assigned At N [facility] Other Start: 05-07-2023 Tobacco smoking status NHIS Never smoked tobacco [facility] Start: 05-07-2023 Tobacco use and exposure Smokeless tobacco non-user [facility] Start: 05-07-2023 History of Social function [facility] Start: 1970 Sex assigned at Female [facility] Start: 02-25-2023 Gender identity Identifies as female gender (finding) [facility] Clinical Notes 03-14-2022 to 03-12-2024 Tawanaprem Mohamud, OTOLOGIST - 03/12/2024 8:30 AM Compa Mohamud, OTOLOGIST - 10/17/2023 3:46 PM EDT Note Date & Type Note Facility 03-12-2024 History of Presen t illness Narrative Reason for Appointment: Patient ID: Celia Nino is a 53 y.o. female who presents for [facility] Visit Patient presents today for Annual Exam. MEDICATIONS Current Outpatient Medications Medication Instructions estrogens (conjugated) (PREMARIN) 1.25 mg, Oral, Every 24 hours gabapentin (Neurontin) 100 MG capsule TAKE 2 CAPSULES BY MOUTH 3 TIMES A DAY FOR 30 DAYS hydroCHLOROthiazide (Microzide) 12.5 MG capsule Every 24 hours traMADol (Ultram) 50 MG tablet TAKE 1 TABLET BY MOUTH AT BEDTIME FOR 14 DAYS ALLERGIES No Known Allergies PROBLEMS Active Ambulatory Problems Diagnosis Date Noted No Active Ambulatory Problems Resolved Ambulatory Problems Diagnosis Date Noted No Resolved Ambulatory Problems Past Medical History: Diagnosis Date Chronic venous insufficiency Granulation tissue of vagina History of hormone replacement therapy HTN (hypertension) (CMS/HCC) Obesity HISTORY PAST MEDICAL HISTORY SOCIAL HISTORY Past Medical History: Diagnosis Date Chronic venous insufficiency Granulation tissue of vagina History of hormone replacement therapy HTN (hypertension) (CMS/HCC) Obesity Social History Tobacco Use Smoking status: Never Smokeless tobacco: Never Substance Use Topics Alcohol use: Not on file Drug use: Not on file FAMILY HISTORY Family History Problem Relation Name Age of Onset Cancer Mother SURGICAL HISTORY Past Surgical History: Procedure Laterality Date BACK SURGERY multiple TOTAL ABDOMINAL HYSTERECTOMY W/ BILATERAL SALPINGOOPHORECTOMY REVIEW OF SYSTEMS Review of Systems: Review of Systems All other systems reviewed and are negative. OBJECTIVE Objective: Physical Exam Constitutional: Appearance: Normal appearance. She is well-developed. Genitourinary: Vulva normal. Vaginal cuff intact. Cervix is absent. Uterus is absent. Breasts: Breasts are soft. Right: Normal. Left: Normal. Cardiovascular: Rate and Rhythm: Normal rate and regular rhythm. Abdominal: General: Bowel sounds are normal. There is no distension. Palpations: Abdomen is soft. Tenderness: There is no abdominal tenderness. There is no guarding or rebound. Musculoskeletal: General: No swelling. Normal range of motion. Right lower leg: No edema. Left lower leg: No edema. Neurological: Mental Status: She is alert and oriented to person, place, and time. Skin: General: Skin is warm and dry. Psychiatric: Mood and Affect: Mood normal. Behavior: Behavior normal. Vitals and nursing note reviewed. Exam conducted with a dispensing optician apprentice present. Vitals: Estimated body mass index is 26.85 kg/m as calculated from the following: Height as of 07/30/23: 5' 4 . Weight as of this encounter: 156 lb 6.4 oz. BP: 130/70 No LMP recorded. Patient has had a hysterectomy. ASSESSMENT & PLAN ICD-10-CM 1. Breast cancer screening by mammogram Z12.31 Bilateral screening mammogram Bilateral screening mammogram 2. Well woman exam with routine gynecological exam Z01.419 THIN PREP TIS PAP AND HR HPV DNA 3. Postmenopausal state Z78.0 DEXA bone density estrogens, conjugated, (Premarin) 1.25 MG tablet Annual: Patient presents today for an annual exam. Patient states she is doing well and has no complaints. Pap was obtained without difficulty and patient given mammogram and DEXA Scan orders to have scheduled/obtained. Orders Placed This Encounter Procedures Bilateral screening mammogram DEXA bone density Follow Up: Patient is to return in one year for annual unless needed otherwise. Documented by Tawana Mohamud LPN on behalf of: Angel Hinojosa DO documented in this encounter [facility] 10-17-2023 History of Presen t illness Narrative [...] Tawana Mohamud LPN documented in this encounter [facility] 03-13-2023 Evaluation note Encounter Date Diagnosis Assessment [...] of pancreatic cancer, weight loss and nausea [facility] Other 09-11-2023 Evaluation note* Encounter Date Diagnosis Assessment Notes Treatment Notes Treatment Clinical Notes Nov, Essential (primary) hypertension (ICD-10 - I10) [facility] Other 07-07-2023 Evaluation note* Encounter Date Diagnosis Assessment Notes Treatment Notes Treatment Clinical Notes 07 Bobby, 2023 Essential (primary) hypertension (ICD-10 - I10) This patient is instructed to consume a healthy, low-fat, low-salt diet. They are also encouraged to continue exercise to achieve/maintain a normal BMI. Decrease Losartan to 25mg [...] for congestion, Tylenol for pain and fever. [facility] Other 01-11-2023 Evaluation note* Encounter Date Diagnosis Assessment Notes Treatment Notes Treatment Clinical Notes Mar, Essential (primary) hypertension (ICD-10 - I10) This patient is instructed to consume a healthy, low-fat, low-salt diet. They are also encouraged to continue exercise to achieve/maintain a normal BMI. Mar, Wellness examination (ICD-10 [...] to adverse effects w/ BP and CVI [facility] Other Evaluation noteNo InformationNort Mirror42 Other Evaluation note* Diagnosis Family history of cancer Family history of unspecified malignant neoplasm Dense breast tissue documented in this encounter [facility] HealthcareEvaluation note* Diagnosis Breast cancer screening by mammogram Well woman exam with routine gynecological exam Routine gynecological examination Postmenopausal state Asymptomatic postmenopausal status (age-related) (natural) documented in this encounter [facility] Narrative - Reported* Type Description Date Medical History Wellness examination Medical History Hormone replacement therapy, pos tmenopausal Medical History Other specified noninflammatory disorders of vagina Medical History Obesity Medical [...] back surgeries Hospitalization History see surgical history [facility] Other History general Narrative - Reported* Type Description Date Medical History Wellness examination Medical History Hormone replacement therapy, pos tmenopausal Medical History Other specified noninflammatory disorders of vagina Medical History Obesity Medical [...] x 4 Hospitalization History see surgical history [facility] Other Summary Purpose Family History No Family History Records FoundNo Family History Records FoundNo Family History Records FoundNo Family History Records FoundNo Family History Records Found Advance Directives No Advanced Directives Records FoundNo Advanced Directives Records FoundNo Advanced Directives Records FoundNo Advanced Directives Records FoundNo Advanced Directives Records Found Hospital Course Note NAME: LUANNE NINO MR #: [id number] ADMIT DATE: 06/25/2018 DISCHARGE DATE: 06/28/2018 DISCHARGE [...] section and content) DATE CREATED AUTHOR 07/04/2018 [facility] DATE CREATED AUTHOR AUTHOR'S ORGANIZ ATION 09/25/2018 [facility] DATE CREATED AUTHOR AUTHOR'S ORGANIZ ATION 05/02/2021 [facility] DATE CREATED AUTHOR AUTHOR'S ORGANIZ ATION 03/17/2022 [facility] DATE CREATED AUTHOR AUTHOR'S ORGANIZ ATION 03/17/2024 [facility] EPIC REASON FOR VISIT (unrecogniz ed section and content) Reason Comments Well Women Visit Care Teams (unrecognized sec tion and content) Radiology Physician Relationship Specialty Start Date End Date Demario Rolle MD [address] [place] [id number] PCP - General 02/25/23 Radiology Physician Relationship Specialty Start Date End Date Demario Rolle MD [address] [place] [id number] PCP - General 02/25/23 Radiology Physician Relationship Specialty Start Date End Date Demario Rolle MD [address] [place] [id number] PCP - General 02/25/23 FOR RECORDS PERTAINING [...] BE BASED ON THE PRIMARY CLINICAL RECORDS. [facility] [employer] [facility]. provides no warranty or guarantee of the accuracy or completeness of information in this document.
[2024-05-10 09:07] LABS: CA 19-9 2 U/mL (0-35)
== END 2024-05-09 08:21 | disposition home or self-care (01) ==
LOC: LAB 08:20
PROVIDERS: PCP Internal Medicine; Visit Provider Internal Medicine
DX: Z80.0 Family history of malignant neoplasm of digestive organs (principal)
CPT/HCPCS: 36415; 86301

== ENCOUNTER 2024-05-19 07:28 | Outpatient (OUT) | payer OTHER, SELFPAY ==
--- OUTSIDE RECORDS SUMMARY | 2024-05-19 07:31 | XMS_ITS | CCD ---
Author Organization [facility] Care Team Providers Care Home Health Registered Nurse Name Role Phone AQUILINO, DR SOTOMAYOR Admitting Unavailable AQUILINO, DR SOTOMAYOR Attending Unavailable AQUILINO, DR SOTOMAYOR Primary Care Unavailable AQUILINO, DR SOTOMAYOR Consulting Unavailable ASHISH, DR ORTIZ Admitting Unavailable ASHISH, DR ORTIZ Attending Unavailable AQUILINO, DR SOTOMAYOR Primary Care Unavailable HATCHECHUBBEE, DR MARCELINA Kennedy Consulting Unavailable ASHISH, DR [...] physicia Propensity to adverse reactions 8 Comment:Done [employer] Other (2 sources) Allergies Reconciled Propensity to adverse reactions Unknown [employer] Other Medications Current Medications Medication Drug Class(es) Dates Sig (Normalized) Sig (Original) cyclobenzaprine hydrochloride 10 mg oral tablet (8 sources) Muscle Relaxant Start: 3 Cyclobenzaprine HCl 10 MG 1 Orally Once a day for 30 day(s) Mar, Active estrogens, conjugated (alf) 1.25 mg oral tablet (14 sources) Estrogen [...] GDLNon AGE GDLN ACOG TESTING Note . [facility] Comment on above: TESTS RESULT FLAG UN ITS REF RANGE LAB Clinician Provided Cytology Information Source.............Vagina No. of containers..01 ThinPrep Vial Age Algo ACOG Gi... FLAG LEGEND: L-Low Normal,H-High Normal,LL-Alert Low,HH-Alert High <-Panic Low,>-Panic High,A-Abnormal,AA-Critical Abnormal Performed at: 01 [facility] [address] Araceli Sánchez MD, HPV APTIMA Negative Negative [facility] Comment on above: This nucleic acid am plification test detects fourteen high- risk HPV types (16,18,31,33,35,39,45,51,52,56,58,59,66,68) without differentiation. Performed at: = - [facility] [id number] Dual Hose Cementer: Araceli Sánchez MD, Phone: [phone] Performed at: - [facility] [id number] Dual Hose Cementer: Araceli Sánchez MD, Phone: [phone] IGP, APTIMA HPV, RFX 16/18,45 Note . [facility] Comment on above: TESTS RESULT FLAG U NITS REF RANGE LAB DIAGNOSIS: 02 NEGATIVE FOR INTRAEPITHELIAL LESION OR MALIGNANCY. CELLULAR CHANGES ASSOCIATED WITH INFLAMMATION ARE PRESENT. Specimen adequacy: 02 Satisfactory for evaluation. No endocervical cells are present. This is consistent with a history of hysterectomy. Performed by: [place] Car Repair Supervisor (ASC) . 02 Note: Note 02 The [...] <-Panic Low,>-Panic High,A-Abnormal,AA-Critical Abnormal Performed at: [address] [address] Araceli Sánchez MD, SPAT[facility]A-[facility] Cytology Cervical or vaginal smear or scraping studyOrdered By: Mary Frederick on 02-26-2023 [facility] CBC AUTO DIFFon 03-17-2022 BASO # 0.0 103/ul Normal 0.0-0.1 [facility] Comment on above: Performed By: #### C BC #### [facility] [address] [place] [address] Dr. Dong Mack Basophils/100 WBC (Bld) 0.7 % Normal 0.2-2.0 [facility] Comment on above: Performed By: #### C BC #### [facility] [address] [address] [address] Dong Mack EO # 0.1 103/ul Normal 0.0-0.7 [facility] Comment on above: Performed By: #### C BC #### [facility] [address] [address] [address] Dong Mack Eosinophils/100 WBC (Bld) 2.2 % Normal 0.9-7.0 [facility] Comment on above: Performed By: #### C BC #### [facility] [address] [place] [address] Dr. Dong Mack Erythrocyte distribution width (RBC) [Ratio] 11.8 % Normal 11.0-15.0 [facility] Comment on above: Performed By: #### C BC #### [facility] [address] [place] [address] Dr. Dong Mack Hematocrit (Bld) [Volume fraction] 39.6 % Normal 36.0-48.0 [facility] Comment on above: Performed By: #### C BC #### [facility] [address] [place] [address] Dr. Dong Mack Hemoglobin (Bld) [Mass/Vol] 13.9 g/dL Normal 12.0-16.0 [facility] Comment on above: Performed By: #### C BC #### [facility] [address] [place] [address] Dr. Dong Mack IG # 0.02 10e3/ul Normal 0.00-0.03 [facility] Comment on above: Performed By: #### C BC #### [facility] [address] [place] [address] Dr. Dong Mack IG % 0.4 % Normal 0.0-0.5 [facility] Comment on above: Performed By: #### C BC #### [facility] [address] [place] [address] Dr. Dong Mack LYMPH # 2.3 103/ul Normal 1.2-3.8 [facility] Comment on above: Performed By: #### C BC #### [facility] [address] [place] [address] Dr. Dong Mack Lymphocytes/100 WBC (Bld) 42.7 % Normal 20.5-60.0 [facility] Comment on above: Performed By: #### C BC #### [facility] [address] [place] [address] Dr. Dong Mack MANUAL DIFF REQ NO Normal [facility] Comment on above: Performed By: #### C BC #### [facility] [address] [address] [address] Dong Mack MCH (RBC) [Entitic mass] 31.4 pg Normal 26.7-34.0 [facility] Comment on above: Performed By: #### C BC #### [facility] [address] [place] [address] Dr. Dong Mack MCHC (RBC) [Mass/Vol] 35.1 g/dL Normal 29.9-35.2 [facility] Comment on above: Performed By: #### C BC #### [facility] [address] [place] [address] Dr. Dong Mack MCV (RBC) [Entitic vol] 89.4 fL Normal 81.0-99.0 [facility] Comment on above: Performed By: #### C BC #### [facility] [address] [place] [address] Dr. Dong Mack MONO # 0.4 103/ul Normal 0.3-0.8 [facility] Comment on above: Performed By: #### C BC #### [facility] [address] [place] [address] Dr. Dong Mack Monocytes/100 WBC (Bld) 6.9 % Normal 1.7-12.0 [facility] Comment on above: Performed By: #### C BC #### [facility] [address] [place] [address] Dr. Dong Mack NEUT # 2.5 103/ul Normal 1.4-6.5 [facility] Comment on above: Performed By: #### C BC #### [facility] [address] [place] [address] Dr. Dong Mack Neutrophils/100 WBC (Bld) 47.1 % Normal 43.0-75.0 [facility] Comment on above: Performed By: #### C BC #### [facility] [address] [place] [address] Dr. Dong Mack Platelet mean volume (Bld) [Entitic vol] 10.7 fL Normal 9.5-13.5 [facility] Comment on above: Performed By: #### C BC #### [facility] [address] [address] [address] Dong Mack PLT 280 103/ul Normal 150-450 [facility] Comment on above: Performed By: #### C BC #### [facility] [address] [address] [address] Dong Mack RBC 4.43 106/ul Normal 4.20-5.40 [facility] Comment on above: Performed By: #### C BC #### [facility] [address] [address] [address] Dong Mack WBC 5.3 103/ul Normal 4.0-11.0 [facility] Comment on above: Performed By: #### C BC #### [facility] [address] [place] [address] Dr. Dong Mack LIPID PROFILEon 03-17-2022 CHOL-HDL RATIO NORM SEE BELOW Normal [facility] Comment on above: Result Comment: 3.3 - 4.4 LOW RISK 4.4 - 7.1 AVERAGE RISK 7.1 - 11.0 MODERATE RISK >11.0 HIGH RISK Performed By: #### L IPID, TSH, CMP #### [facility] [address] [place] [address] Dr. Dong Mack Cholesterol [Mass/Vol] 254 mg/dL Critically high <=200 [facility] Comment on above: Performed By: #### L IPID, TSH, CMP #### [facility] [address] [place] [address] Dr. Dong Mack Cholesterol in HDL [Mass/Vol] 72 mg/dL Critically high 40-60 [facility] Comment on above: Performed By: #### L IPID, TSH, CMP #### [facility] [address] [place] [address] Dr. Dong Mack Cholesterol in LDL [Mass/Vol] 152.4 mg/dL Normal [facility] Comment on above: Performed By: #### L IPID, TSH, CMP #### [facility] [address] [place] [address] Dr. Dong Mack Cholesterol.total/ Cholesterol in HDL [Mass ratio] 3.5 {ratio} Normal [facility] Comment on above: Performed By: #### L IPID, TSH, CMP #### [facility] [address] [place] [address] Dr. Dong Mack HDL NORMAL > or = 60 mg/dl - LO W CARDIOVASCULAR RISK <40 mg/dl - HIGH CARDIOVASCULAR RISK Normal [facility] Comment on above: Performed By: #### L IPID, TSH, CMP #### [facility] [address] [place] [address] Dr. Dong Mack LDL CALC NORMAL SEE BELOW Normal [facility] Comment on above: Result Comment: <100 mg/dl OPTIMAL 100 - 129 mg/dl NEAR OR ABOVE OPTIMAL 130 - 159 mg/dl BORDERLINE HIGH 160 - 189 mg/dl HIGH >190 mg/dl VERY HIGH Performed By: #### L IPID, TSH, CMP #### [facility] [address] [place] [address] Dr. Dong Mack Triglyceride [Mass/Vol] 148 mg/dL Normal <=150 [facility] Comment on above: Performed By: #### L IPID, TSH, CMP #### [facility] [address] [place] [address] Dr. Dong Mack VLDL CALC 29.6 mg/dL Normal [facility] Comment on above: Performed By: #### L IPID, TSH, CMP #### [facility] [address] [place] [address] Dr. Dong Mack PROF 14(COMP METB)on 023 Albumin [Mass/Vol] 3.8 g/dL Normal 3.4-5.0 [facility] Comment on above: Performed By: #### L IPID, TSH, CMP #### [facility] [address] [place] [address] Dr. Dong Mack Albumin/Globulin [Mass ratio] 1.2 {ratio} Normal [facility] Comment on above: Performed By: #### L IPID, TSH, CMP #### [facility] [address] [place] [address] Dr. Dong Mack ALP [Catalytic activity/Vol] 52 U/L Normal 46-116 [facility] Comment on above: Performed By: #### L IPID, TSH, CMP #### [facility] [address] [place] [address] Dr. Dong Mack ALT [Catalytic activity/Vol] 27 U/L Normal 14-59 [facility] Comment on above: Performed By: #### L IPID, TSH, CMP #### [facility] [address] [place] [address] Dr. Dong Mack Anion gap [Moles/Vol] 8.1 mmol/L Normal [facility] Comment on above: Performed By: #### L IPID, TSH, CMP #### [facility] [address] [place] [address] Dr. Dong Mack AST [Catalytic activity/Vol] 22 U/L Normal 15-37 [facility] Comment on above: Performed By: #### L IPID, TSH, CMP #### [facility] [address] [place] [address] Dr. Dong Mack Bilirubin [Mass/Vol] 0.7 mg/dL Normal 0.2-1.0 [facility] Comment on above: Performed By: #### L IPID, TSH, CMP #### [facility] [address] [place] [address] Dr. Dong Mack Calcium [Mass/Vol] 9.2 mg/dL Normal 8.5-10.1 [facility] Comment on above: Performed By: #### L IPID, TSH, CMP #### [facility] [address] [place] [address] Dr. Dong Mack Chloride [Moles/Vol] 103 mmol/L Normal 98-107 [facility] Comment on above: Performed By: #### L IPID, TSH, CMP #### [facility] [address] [place] [address] Dr. Dong Mack CO2 [Moles/Vol] 33.9 mmol/L Critically high 21.0-32.0 [facility] Comment on above: Performed By: #### L IPID, TSH, CMP #### [facility] [address] [address] [address] Dong Mack Creatinine [Mass/Vol] 0.66 mg/dL Normal 0.55-1.02 [facility] Comment on above: Performed By: #### L IPID, TSH, CMP #### [facility] [address] [address] [address] Dong Mack EGFR-AF INDIAN >60 Normal >=60 [facility] Comment on above: Performed By: #### L IPID, TSH, CMP #### [facility] [address] [address] [address] Dong Mack EGFR-NON AF INDIAN >60 Normal >=60 [facility] Comment on above: Performed By: #### L IPID, TSH, CMP #### [facility] [address] [address] [address] Dong Mack Globulin (S) [Mass/Vol] 3.3 g/dL Normal [facility] Comment on above: Performed By: #### L IPID, TSH, CMP #### [facility] [address] [address] [address] Dong Mack Glucose [Mass/Vol] 94 mg/dL Normal 74-106 [facility] Comment on above: Performed By: #### L IPID, TSH, CMP #### [facility] [address] [address] [address] Dong Mack Potassium [Moles/Vol] 4.0 mmol/L Normal 3.5-5.1 [facility] Comment on above: Performed By: #### L IPID, TSH, CMP #### [facility] [address] [address] [address] Dong Mack Protein [Mass/Vol] 7.1 g/dL Normal 6.4-8.2 [facility] Comment on above: Performed By: #### L IPID, TSH, CMP #### [facility] [address] [address] [address] Dong Mack Sodium [Moles/Vol] 141 mmol/L Normal 136-145 [facility] Comment on above: Performed By: #### L IPID, TSH, CMP #### [facility] [address] [place] [address] Dr. Dong Mack Urea nitrogen [Mass/Vol] 13.0 mg/dL Normal 7.0-18.0 [facility] Comment on above: Performed By: #### L IPID, TSH, CMP #### [facility] [address] [place] [address] Dr. Dong Mack Urea nitrogen/Creatinin e [Mass ratio] 19.7 mg/mg Normal [facility] Comment on above: Performed By: #### L IPID, TSH, CMP #### [facility] [address] [place] [address] Dr. Dong Mack TSHon 03-17-2022 TSH 1.223 uIU/mL Normal 0.358-3.740 [facility] Comment on above: Performed By: #### L IPID, TSH, CMP #### [facility] [address] [place] [address] Dr. Dong Mack PAP ACOG PANEL 2: 30 to 65on 02-13-2022 . . Normal [facility] Comment on above: Result Comment: Perf ormed at: WB Performed By: #### [id number] #### [facility] [address] [place] [address] Dr. Dong Mack Age Gdln ACOG Testing 30-65 [facility] Comment on above: Performed By: #### [id number] #### [facility] [address] [place] [address] Dr. Dong Mack DIAGNOSIS: Comment Normal [facility] Comment on above: Result Comment: NEGA TIVE FOR INTRAEPITHELIAL LESION OR MALIGNANCY. Performed at: WB Performed By: #### [id number] #### [facility] [address] [place] [address] Dr. Dong Mack HPV Aptima Negative Normal Negative [facility] Comment on above: Result Comment: This nucleic acid amplification test detects fourteen high-risk HPV types (16,18,31,33,35,39,45,51,52,56,58,59,66,68) without differentiation. Performed at: =G Performed By: #### [id number] #### [facility] [address] [place] [address] Dr. Dong Mack HPV Genotype Reflex Comment Normal [facility] Comment on above: Result Comment: Crit erjustin not met, HPV Genotype not performed. Performed at: WB Performed By: #### [id number] #### [facility] [address] [place] [address] Dr. Dong Mack Methodology: Comment Normal [facility] Comment on above: Result Comment: This liquid based ThinPrep(R) pap test was screened with the use of an image guided system. Performed at: WB Performed By: #### [id number] #### [facility] [address] [place] [address] Dr. Dong Mack Note: Comment Normal [facility] Comment on above: Result Comment: The Pap smear is a screening test designed to aid in the detection of premalignant and malignant conditions of the uterine cervix. It is not a diagnostic procedure and should not be used as the sole means of detecting cervical cancer. Both false-positive and false-negative reports do occur. . Performed at: WB Performed By: #### [id number] #### [facility] [address] [place] [address] Dr. Dong Mack Performed by: Comment Normal [facility] Comment on above: Result Comment: Nithya Keen, Car Repair Supervisor Performed at: WB Performed By: #### [id number] #### [facility] [address] [place] [address] Dr. Dong Mack Specimen adequacy: Comment Normal [facility] Comment on above: Result Comment: Sati sfactory for evaluation. Endocervical and/or squamous metaplastic cells (endocervical component) are present. Performed at: WB Performed By: #### [id number] #### [facility] [address] [place] [address] Dr. Dong Mack XR DEXA BONE DENSITYon [...] by: CRISTINE POPE Date: 2022-02-13 08:43 Normal [facility] MAMM SCREEN 3D RAMEZ CADon 02-05-2022 MG MAMM SCREEN 3D RAMEZ CAD Patient: LUANNE NINO Exam Date: 02/05/2022 : 1970 Gender:F Ordering : DR ANGEL HINOJOSA . Admission #: [id number] Family : DR DEMARIO ROLLE D.O. Order #: [id number] CLICK HERE TO VIEW EXAM RADIOLOGY REPORT [...] melanoma cancer at age 41. LOCATION: [facility] BREAST COMPOSITION: Heterogeneously dense,which may obscure small [...] Triana MD on 02/05/2022 at 09:50 Normal [facility] COVID-19 Antigenon 2 COVID-19 Antigen Healthcare Worker?: [...] its performance Carli Disclaimer characteristic determined by [employer] and Carli Disclaimer validated at [facility]. This Carli Disclaimer test has not been [...] is terminated or revoked sooner. PERFORMED BY: [place] [address] PATHOLOGIST KNUCKLE BENDER WAQAS DÍAZ M.D. [facility] Comment on above: Performed By: #### C OVID-19 CARLI, SOFIANEG #### [facility] [address] [place] [address] Carli Ag Negativeon 04-25-19 Carli Ag Negative Negative Normal Negative [facility] Comment on above: Result Comment: This is a duplicate Carli SARS Antigen (ANTONIO) result to be used for statistical tracking purpose only. PERFORMED BY: [place] [address] PATHOLOGIST KNUCKLE BENDER WAQAS DÍAZ M.D. Performed By: #### C OVID-19 CARLI, SOFIANEG #### [facility] [address] [place] [address] LUMBAR SPINE 2 OR 3 VIEWSon 09-18-2018 LUMBAR SPINE 2 OR 3 VIEWS STUDY: LUMBAR SPINE 2 OR 3 VIEWS; 09/18/2018 10:45 am INDICATION: PAIN. COMPARISON: Intraoperative radiographs from 06/25/2018 ACCESSION NUMBER(S): [id number] ORDERING CLINICIAN: Emely Puckett FINDINGS: Interbody graft at L3-4. Posterior metallic fusion hardware with laminectomy defects L4-S1. Grade 2-3 anterolisthesis L5-S1 unchanged. No new fracture subluxation. No new disc height loss. Degenerative changes appear similar prior exam. IMPRESSION: L3-4 and L4-S1 fusion changes. Normal [facility] BASIC MET PANELon 06-26-2018 Anion gap [Moles/Vol] 8 mmol/L Normal 6-18 [facility] Comment on above: Order Comment: CONSE RVATION Performed By: #### L 500.70458, L500.43567, L500.62209 #### Test performed at: [address] [address] Calcium [Mass/Vol] 8.3 mg/dL Low 8.5-10.1 [facility] Comment on above: Order Comment: CONSE RVATION Performed By: #### L 500.35099, L500.81077, L500.90781 #### Test performed at: [address] [address] Chloride [Moles/Vol] 103 mmol/L Normal 98-107 [facility] Comment on above: Order Comment: CONSE RVATION Performed By: #### L 500.69603, L500.40642, L500.91273 #### Test performed at: [address] [address] CO2 [Moles/Vol] 30 mmol/L Normal 21-32 [facility] Comment on above: Order Comment: CONSE RVATION Performed By: #### L 500.90638, L500.11423, L500.69414 #### Test performed at: [address] [address] Creatinine [Mass/Vol] 0.620 mg/dL Normal 0.550-1.020 [facility] Comment on above: Order Comment: CONSE RVATION Performed By: #### L 500.22560, L500.74116, L500.57877 #### Test performed at: [address] [address] Glucose [Mass/Vol] 139 mg/dL High 70-99 [facility] Comment on above: Order Comment: CONSE RVATION Result Comment: Fast ing GLUCOSE reference range has been updated per (ADA) [place] [employer]'s recommendation. 05/27/2018 Performed By: #### L 500.05516, L500.33267, L500.56069 #### Test performed at: [address] [address] OSM 284 mosm/kg Normal 270-300 [facility] Comment on above: Order Comment: CONSE RVATION Performed By: #### L 500.71661, L500.54381, L500.86302 #### Test performed at: [address] [address] Potassium [Moles/Vol] 4.3 mmol/L Normal 3.5-5.1 [facility] Comment on above: Order Comment: CONSE RVATION Performed By: #### L 500.14166, L500.03343, L500.18737 #### Test performed at: [address] [address] Sodium [Moles/Vol] 137 mmol/L Normal 136-145 [facility] Comment on above: Order Comment: CONSE RVATION Performed By: #### L 500.90144, L500.30827, L500.70386 #### Test performed at: [address] [address] Urea nitrogen [Mass/Vol] 5 mg/dL Low 7-18 [facility] Comment on above: Order Comment: CONSE RVATION Performed By: #### L 500.00213, L500.97480, L500.81864 #### Test performed at: [address] [address] CBC W/DIFFon 06-26-2018 BASO ABS 0.0 K/uL Normal 0.0-0.2 [facility] Comment on above: Order Comment: CONSE RVATION Performed By: #### L 200.53799 #### Test performed at: [address] [address] Basophils/100 WBC (Bld) 0.1 % Normal [facility] Comment on above: Order Comment: CONSE RVATION Performed By: #### L 200.02795 #### Test performed at: [address] [address] EOS ABS 0.0 K/uL Normal 0.0-0.5 [facility] Comment on above: Order Comment: CONSE RVATION Performed By: #### L 200.33966 #### Test performed at: [address] [address] Eosinophils/100 WBC (Bld) 0.0 % Normal [facility] Comment on above: Order Comment: CONSE RVATION Performed By: #### L 200.43187 #### Test performed at: [address] [address] IG % 0.5 % Normal [facility] Comment on above: Order Comment: CONSE RVATION Performed By: #### L 200.69105 #### Test performed at: [address] [address] IG ABS 0.07 K/uL High 0-0.05 [facility] Comment on above: Order Comment: CONSE RVATION Performed By: #### L 200.58346 #### Test performed at: [address] [address] Lymphocytes (Bld) [#/Vol] 1.2 10*3/uL Normal 1.2-3.5 [facility] Comment on above: Order Comment: CONSE RVATION Performed By: #### L 200.87871 #### Test performed at: [address] [address] Lymphocytes/100 WBC (Bld) 9.2 % Normal [facility] Comment on above: Order Comment: CONSE RVATION Performed By: #### L 200.19017 #### Test performed at: [address] [address] MONO ABS 0.8 K/uL Normal 0.0-1.0 [facility] Comment on above: Order Comment: CONSE RVATION Performed By: #### L 200.71071 #### Test performed at: [address] [address] Monocytes/100 WBC (Bld) 5.7 % Normal [facility] Comment on above: Order Comment: CONSE RVATION Performed By: #### L 200.92246 #### Test performed at: [address] [address] NEUTROPHIL ABS 11.4 K/uL High 1.4-6.6 [facility] Comment on above: Order Comment: CONSE RVATION Performed By: #### L 200.78072 #### Test performed at: [address] [address] Neutrophils/100 WBC (Bld) 84.5 % Normal [facility] Comment on above: Order Comment: CONSE RVATION Performed By: #### L 200.18221 #### Test performed at: [address] [address] Erythrocyte distribution width (RBC) [Ratio] 11.5 % Normal 11.5-14.5 [facility] Comment on above: Order Comment: CONSE RVATION Performed By: #### L 200.57964 #### Test performed at: [address] [address] Hematocrit (Bld) [Volume fraction] 31.4 % Low 36.0-48.0 [facility] Comment on above: Order Comment: CONSE RVATION Performed By: #### L 200.30581 #### Test performed at: [address] [address] Hemoglobin (Bld) [Mass/Vol] 11.2 g/dL Low 12.0-15.0 [facility] Comment on above: Order Comment: CONSE RVATION Result Comment: Delt a: 14.1 on 06/12/18-1047 Performed By: #### L 200.25580 #### Test performed at: [address] [address] MCH (RBC) [Entitic mass] 32.3 pg Normal 25.4-34.6 [facility] Comment on above: Order Comment: CONSE RVATION Performed By: #### L 200.38693 #### Test performed at: [address] [address] MCHC (RBC) [Mass/Vol] 35.7 g/dL Normal 31.5-36.5 [facility] Comment on above: Order Comment: CONSE RVATION Performed By: #### L 200.03311 #### Test performed at: [place] [id number] MCV (RBC) [Entitic vol] 90.5 fL Normal 79.0-98.0 [facility] Comment on above: Order Comment: CONSE RVATION Performed By: #### L 200.70195 #### Test performed at: [address] [address] NRBC # 0.000 K/uL Normal 0-0.012 [facility] Comment on above: Order Comment: CONSE RVATION Performed By: #### L 200.79721 #### Test performed at: [address] [address] NRBC % 0.0 /100 WBC Normal 0-0.2 [facility] Comment on above: Order Comment: CONSE RVATION Performed By: #### L 200.29194 #### Test performed at: [address] [address] Platelet mean volume (Bld) [Entitic vol] 11.3 fL Normal 8.7-12.4 [facility] Comment on above: Order Comment: CONSE RVATION Performed By: #### L 200.39034 #### Test performed at: [address] [address] Platelets (Bld) [#/Vol] 208 10*3/uL Normal 140-440 [facility] Comment on above: Order Comment: CONSE RVATION Performed By: #### L 200.98509 #### Test performed at: [address] [address] RBC (Bld) [#/Vol] 3.47 10*6/uL Low 3.5-5.5 [facility] Comment on above: Order Comment: CONSE RVATION Performed By: #### L 200.58346 #### Test performed at: [address] [address] WBC (Bld) [#/Vol] 13.5 10*3/uL High 3.9-11.0 [facility] Comment on above: Order Comment: CONSE RVATION Result Comment: Delt a: 6.5 on 06/12/18 Performed By: #### L 200.30093 #### Test performed at: [address] [address] EST. CREAT CLRon 06-26-2018 Creatinine [Mass/Vol] 159.375 ML/MIN Normal [facility] Comment on above: Order Comment: CBN: YES [place]: MAIN Result Comment: This result is an ESTIMATED blood creatinine clearance value which is derived from the patient age, sex, weight, and previous blood creatinine result. Performed By: #### L 500.43132, L500.42483 #### Test performed at: [address] [place] [address] GFR ESTIMATEon 06-26-2018 IF AMER > 60 Normal > 60 [facility] Comment on above: Order Comment: CBN: YES [place]: MAIN Result Comment: eGFR (Estimated GFR) Units of measure:mL/min/1.73 meters sq. *CALCULATION REVISED 12/21/2014;IDMS-traceable MDRD equation eGFR is derived from the reexpressed MDRD Study equation using the following parameters: serum creatinine, age, gender and race. An eGFR<60 mL/min/1.73m2 for >3 months is consistent with chronic kidney disease. Refer to KDOQI guidelines for clinical interpretation. Performed By: #### L 500.01715, L500.61390 #### Test performed at: [place] [address] IF non-AFR AMER > 60 Normal > 60 [facility] Comment on above: Order Comment: CBN: YES [place]: MAIN Performed By: #### L 500.59296, L500.53072 #### Test performed at: [place] [address] CONSULTATION REPORTon 2018 CONSULTATION REPORT NAME: LUANNE NINO MR#: [id number] CERTIFIED TRAVEL COUNSELOR: Valencia Hernandez MD DATE OF CONSULTATION: 06/26/2018 [...] patient is medically stable. VALENCIA HERNANDEZ MD KH/MODL/[id number] [facility] PT NAME: LUANNE NINO MR#: [id number] [address] [place] [address] ACCT: [id number] : 70 CONSULTATION E/S: Valencia Hernandez MD 06/26/[address] [facility] PT NAME: LUANNE NINO MR#: [id number] [address] [place] [address] ACCT: [id number] : 70 CONSULTATION Normal [facility] OPERATIVE REPORTon 9 OPERATIVE REPORT NAME: LUANNE NINO MR#: [id number] SURGEON: Casandra Russell MD DATE OF SURGERY: 06/25/2018 OPERATIVE REPORT TERRA COTTA SETTER: Filiberto Kaur. PREOPERATIVE DIAGNOSIS: Right L5 radiculopathy [...] were able to stay in the midline [facility] PT NAME: LUANNE NINO MR#: [id number] [address] [place] [address] ACCT: [id number] : 70 OPERATIVE REPORT exposing just a [...] tolerated the procedure well. CASANDRA RUSSELL MD [facility] PT NAME: LUANNE NINO MR#: [id number] [address] [place] [address] ACCT: [id number] : 70 OPERATIVE REPORT JSA/MODL/[id number] E/S: Casandra Russell MD 06/30/[address] [facility] PT NAME: LUANNE NINO MR#: [id number] [address] [place], [place] [address] ACCT: [id number] : 70 OPERATIVE REPORT Normal [facility] TSon 06-25-2018 ABO and Rh group Nom (Bld) A POSITIVE Normal [facility] Comment on above: Order Comment: CONSE RVATION CBN: NO [place]: MAIN Transfusion Status: CONSERVATION Blood Bank service requested: TYPE AND SCREEN Comments To Phleb: IN SDS Performed By: #### B 100.0200 #### Test performed at: [place] [address] [address] [place] [address] LUMBAR SPINE 1 VIEWon 2018 LUMBAR SPINE 1 VIEW STUDY: LUMBAR SPINE 1 VIEW;; 06/25/2018 11:10 am; 06/25/2018 12:20 pm INDICATION: REMOVAL HARDWARE , FORAMINOTOMY L4-S1; HARDWARE REMOVAL, FORAMINOTOMY L4-S1. COMPARISON: None. ACCESSION NUMBER(S): [id number]; [id number] ORDERING CLINICIAN: Casandra Russell FINDINGS: 2 lateral intraoperative views of the lumbar spine were performed for intraoperative localization. Please see procedure report for further details. IMPRESSION: Two lateral intraoperative views of the lumbar spine for localization. Please see procedure report for further details Normal [facility] LUMBAR SPINE 1 VIEW STUDY: LUMBAR SPINE 1 VIEW;; 06/25/2018 11:10 am; 06/25/2018 12:20 pm INDICATION: REMOVAL HARDWARE , FORAMINOTOMY L4-S1; HARDWARE REMOVAL, FORAMINOTOMY L4-S1. COMPARISON: None. ACCESSION NUMBER(S): [id number]; [id number] ORDERING CLINICIAN: Casandra Russell FINDINGS: 2 lateral intraoperative views of the lumbar spine were performed for intraoperative localization. Please see procedure report for further details. IMPRESSION: Two lateral intraoperative views of the lumbar spine for localization. Please see procedure report for further details Normal [facility] BASIC MET PANELon 06-12-2018 Anion gap [Moles/Vol] 10 mmol/L Normal 6-18 [facility] Comment on above: Order Comment: CBN: YES [place]: MAIN Performed By: #### L 500.93888, L500.06837 #### Test performed at: [place] [address] [place] [address] Calcium [Mass/Vol] 9.7 mg/dL Normal 8.5-10.1 [facility] Comment on above: Order Comment: CBN: YES [place]: MAIN Performed By: #### L 500.63891, L500.51099 #### Test performed at: [address] [address] Chloride [Moles/Vol] 104 mmol/L Normal 98-107 [facility] Comment on above: Order Comment: CBN: YES [place]: MAIN Performed By: #### L 500.42183, L500.28775 #### Test performed at: [address] [address] CO2 [Moles/Vol] 30 mmol/L Normal 21-32 [facility] Comment on above: Order Comment: CBN: YES [place]: MAIN Performed By: #### L 500.43188, L500.97855 #### Test performed at: [address] [address] Creatinine [Mass/Vol] 0.665 mg/dL Normal 0.550-1.020 [facility] Comment on above: Order Comment: CBN: YES [place]: MAIN Performed By: #### L 500.67999, L500.20021 #### Test performed at: [address] [address] Glucose [Mass/Vol] 98 mg/dL Normal 70-99 [facility] Comment on above: Order Comment: CBN: YES [place]: MAIN Result Comment: Fast ing GLUCOSE reference range has been updated per (ADA) [place] [employer]'s recommendation. 05/27/2018 Performed By: #### L 500.36181, L500.60156 #### Test performed at: [address] [address] OSM 288 mosm/kg Normal 270-300 [facility] Comment on above: Order Comment: CBN: YES [place]: MAIN Performed By: #### L 500.95709, L500.72422 #### Test performed at: [address] [address] Potassium [Moles/Vol] 4.5 mmol/L Normal 3.5-5.1 [facility] Comment on above: Order Comment: CBN: YES [place]: MAIN Performed By: #### L 500.54059, L500.65860 #### Test performed at: [address] [address] Sodium [Moles/Vol] 139 mmol/L Normal 136-145 [facility] Comment on above: Order Comment: CBN: YES [place]: MAIN Performed By: #### L 500.95754, L500.15596 #### Test performed at: [address] [address] Urea nitrogen [Mass/Vol] 13 mg/dL Normal 7-18 [facility] Comment on above: Order Comment: CBN: YES [place]: MAIN Performed By: #### L 500.52893, L500.01793 #### Test performed at: [address] [address] CBCon 06-12-2018 Erythrocyte distribution width (RBC) [Ratio] 11.9 % Normal 11.5-14.5 [facility] Comment on above: Order Comment: CBN: YES [place]: MAIN Performed By: #### L 200.61282 #### Test performed at: [address] [address] Hematocrit (Bld) [Volume fraction] 40.7 % Normal 36.0-48.0 [facility] Comment on above: Order Comment: CBN: YES [place]: MAIN Performed By: #### L 200.19228 #### Test performed at: [address] [address] Hemoglobin (Bld) [Mass/Vol] 14.1 g/dL Normal 12.0-15.0 [facility] Comment on above: Order Comment: CBN: YES [place]: MAIN Performed By: #### L 200.81012 #### Test performed at: [place] [address] MCH (RBC) [Entitic mass] 31.9 pg Normal 25.4-34.6 [facility] Comment on above: Order Comment: CBN: YES [place]: MAIN Performed By: #### L 200.49665 #### Test performed at: [address] [address] MCHC (RBC) [Mass/Vol] 34.6 g/dL Normal 31.5-36.5 [facility] Comment on above: Order Comment: CBN: YES [place]: MAIN Performed By: #### L 200.98281 #### Test performed at: [address] [address] MCV (RBC) [Entitic vol] 92.1 fL Normal 79.0-98.0 [facility] Comment on above: Order Comment: CBN: YES [place]: MAIN Performed By: #### L 200.19012 #### Test performed at: [address] [address] NRBC # 0.000 K/uL Normal 0-0.012 [facility] Comment on above: Order Comment: CBN: YES [place]: MAIN Performed By: #### L 200.71540 #### Test performed at: [address] [address] NRBC % 0.0 /100 WBC Normal 0-0.2 [facility] Comment on above: Order Comment: CBN: YES [place]: MAIN Performed By: #### L 200.15178 #### Test performed at: [address] [address] Platelet mean volume (Bld) [Entitic vol] 11.8 fL Normal 8.7-12.4 [facility] Comment on above: Order Comment: CBN: YES [place]: MAIN Performed By: #### L 200.83681 #### Test performed at: [place] [address] Platelets (Bld) [#/Vol] 246 10*3/uL Normal 140-440 [facility] Comment on above: Order Comment: CBN: YES [place]: MAIN Performed By: #### L 200.60457 #### Test performed at: [address] [address] RBC (Bld) [#/Vol] 4.42 10*6/uL Normal 3.5-5.5 [facility] Comment on above: Order Comment: CBN: YES [place]: MAIN Performed By: #### L 200.06199 #### Test performed at: [address] [address] WBC (Bld) [#/Vol] 6.5 10*3/uL Normal 3.9-11.0 [facility] Comment on above: Order Comment: CBN: YES [place]: MAIN Performed By: #### L 200.82635 #### Test performed at: [address] [address] GFR ESTIMATEon 06-12-2018 IF AMER > 60 Normal > 60 [facility] Comment on above: Order Comment: CBN: YES [place]: MAIN Result Comment: eGFR (Estimated GFR) Units of measure:mL/min/1.73 meters sq. *CALCULATION REVISED 12/21/2014;IDMS-traceable MDRD equation eGFR is derived from the reexpressed MDRD Study equation using the following parameters: serum creatinine, age, gender and race. An eGFR<60 mL/min/1.73m2 for >3 months is consistent with chronic kidney disease. Refer to KDOQI guidelines for clinical interpretation. Performed By: #### L 500.95940, L500.24136 #### Test performed at: [place] [id number] IF non-AFR AMER > 60 Normal > 60 [facility] Comment on above: Order Comment: CBN: YES [place]: MAIN Performed By: #### L 500.34078, L500.67712 #### Test performed at: [address] [address] TSPATon 06-12-2018 ABO and Rh group Nom (Bld) A POSITIVE Normal [facility] Comment on above: Order Comment: CBN: YES [place]: MAIN Transfusion Status: CONSERVATION Blood Bank service requested: TYPE AND SCREEN Specimen Comment: SURG 06/25 Performed By: #### B 100.0201 #### Test performed at: [address] [address] Vital Signs Date Time Vital Sign Value Performing Clinician Facility 03-12-2024 08:37-0500 Body mass index (BMI) [Ratio] 26.85 kg/m2 [employer] Work Phone: [facility] 03-12-2024 08:37-0500 Body weight 70.94 kg [employer] Work Phone: [facility] 03-12-2024 08:37-0500 Diastolic blood pressure 70 mm[Hg] [employer] Work Phone: [facility] 03-12-2024 08:37-0500 Systolic blood pressure 130 mm[Hg] [employer] Ashish DO Work Phone: [facility] 03-13-2023 08:30-0500 Body height 162.56 cm Demario Ball Other [facility] Other 03-13-2023 08:30-0500 Body mass index (BMI) [Ratio] 25.37 kg/m2 Demario Ball Other [facility] Other 03-13-2023 08:30-0500 Body weight 67.04 kg Demario Ball Other [facility] Other 03-13-2023 08:30-0500 Diastolic blood pressure 75 mm[Hg] Demario Ball Other [facility] Other 03-13-2023 08:30-0500 Respiratory rate 12 /min Demario Ball Other [facility] Other 03-13-2023 08:30-0500 Systolic blood pressure 125 mm[Hg] Demario Ball Other [facility] Other 09-07-2022 13:30-0400 Body height 162.56 cm Demario Ball Other [facility] Other 09-07-2022 13:30-0400 Body mass index (BMI) [Ratio] 26.19 kg/m2 Demario Ball Other [facility] Other 09-07-2022 13:30-0400 Body weight 69.22 kg Demario Ball Other [facility] Other 09-07-2022 13:30-0400 Diastolic blood pressure 76 mm[Hg] Demario Ball Other [facility] Other 09-07-2022 13:30-0400 Respiratory rate 12 /min Demario Ball Other [facility] Other 09-07-2022 13:30-0400 Systolic blood pressure 117 mm[Hg] Demario Ball Other [facility] Other 03-14-2022 09:30-0500 Body height 162.56 cm Demario Ball Other [facility] Other 03-14-2022 09:30-0500 Body mass index (BMI) [Ratio] 30.34 kg/m2 Demario Ball Other [facility] Other 03-14-2022 09:30-0500 Body weight 80.2 kg Demario Ball Other [facility] Other 03-14-2022 09:30-0500 Diastolic blood pressure 78 mm[Hg] Demario Rolle Other [facility] Other 03-14-2022 09:30-0500 Respiratory rate 12 /min Demario Rolle Other [facility] Other 03-14-2022 09:30-0500 Systolic blood pressure 122 mm[Hg] Demario Rolle Other [facility] Other Encounters Encounter Date Encounter Type Care Provider Facility Start: 03-12-2024 End: 03-12-2024 Bamboo flowsheet Angel Ashish DO Work Phone: [facility] Start: 03-12-2024 End: 03-17-2024 Bamboo flowsheet Angel Ashish DO Work Phone: [facility] Start: 03-12-2024 End: 03-17-2024 Clinisync Result Encounter Angel Ashish DO Work Phone: [facility] External Department Unsolicited Start: 03-12-2024 End: 03-12-2024 Patient encounter procedure Angel Ashish DO Work Phone: [facility] Start: 03-12-2024 End: 03-12-2024 Periodic preventive med est patient 40-64yrs Angel Ashish DO Work Phone: [facility] Comment on above: Breast cancer screen ing by mammogram; Well woman exam with routine gynecological exam; Postmenopausal state Start: 03-12-2024 End: 03-12-2024 ambulatory ANGEL ASHISH Not Available Start: 10-17-2023 End: 11-11-2023 Orders Only Angel Ashish DO Work Phone: [facility] Comment on above: Family history of ca ncer; Dense breast tissue Start: 07-30-2023 End: 07-30-2023 ambulatory ANGEL ASHISH Not Available Start: 05-07-2023 End: 05-07-2023 ambulatory CONCEPC[facility] IWLDE Not Available Start: 04-02-2023 End: 04-02-2023 ambulatory Demario Rolle Other [facility] Other Start: 04-02-2023 Telephone encounter Demario Rolle [facility] Start: 04-01-2023 End: 04-01-2023 ambulatory Demario Rolle Other [facility] Other Start: 04-01-2023 Telephone encounter Demario Rolle [facility] Start: 03-18-2023 End: 03-18-2023 ambulatory Demario Rolle Other [facility] Other Start: 03-18-2023 Telephone encounter Demario Rolle [facility] Start: 03-13-2023 End: 03-13-2023 ambulatory Demario Rolle Other [facility] Other Start: 03-13-2023 Encounter for genera l adult medical examination without abnormal findings Demario Rolle [facility] Start: 03-13-2023 Periodic preventive med est patient 40-64yrs Demario Rolle [facility] Start: 11-12-2022 End: 11-12-2022 ambulatory Demario Aquilino Other [facility] Other Start: 11-12-2022 Telephone encounter Demario Rolle [facility] Start: 09-07-2022 End: 09-07-2022 ambulatory Demario Aquilino Other [facility] Other Start: 09-07-2022 Office outpatient vi sit 15 minutes Demario Rolle [facility] Start: 03-17-2022 End: 03-18-[address] DEMARIO ROLLE Facility:[facility] Start: 03-14-2022 End: 03-14-2022 ambulatory Demario Rolle Other [facility] Other Start: 03-14-2022 Encounter for genera l adult medical examination without abnormal findings Demario Rolle [facility] Start: 03-14-2022 Periodic preventive med est patient 40-64yrs Demario Rolle [facility] Start: 03-12-2022 Annual wellness visit Demario Rolle Other [facility] Other Start: 02-13-2022 End: 02-14-[address] ANGEL HINOJOSA Facility:[facility] Start: 02-05-2022 End: 02-06-[address] ANGEL HINOJOSA Facility:[facility] Start: 09-13-2021 Adult health examination Jose Rolle Other [facility] Other Start: 09-13-2021 Gynecological examin ation normal Demario Rolle Other [facility] Other Start: 06-25-2018 Patient encounter procedure Facility:[id number] Procedures Date Procedure Procedure Detail Performing Clinician Start: 03-12-2024 IGP,APTIMA HPV,AGE GDLN [employer] DO Work Phone: Start: 02-26-2023 Microscopic observat ion [Identifier] in Cervix by Cyto stain Effective [employer] DO Work Phone: Start: 02-26-2023 Cytp cerv/vag auto t hin layer prep mnl screen Angel Ashish DO Work Phone: Start: 02-22-2023 Mammography Angel Fazi o DO Work Phone: Start: 06-25-2018 Antibody screen Comment on above: Order Comment: CONSE RVATION CBN: NO [place]: MAIN Transfusion Status: CONSERVATION Blood Bank service requested: TYPE AND SCREEN Comments To Phleb: IN SDS Result Comment: TYPE AND SCREEN PERFORMED IN G.PAT ON 06.12.18. Performed By: #### B 100.0200 #### Test performed at: [address] [address] Start: 06-12-2018 Antibody screen Comment on above: Order Comment: CBN: YES [place]: MAIN Transfusion Status: CONSERVATION Blood Bank service requested: TYPE AND SCREEN Specimen Comment: SURG 06/25 Performed By: #### B 100.0201 #### Test performed at: [facility] [address] [address] End: 09-19-2021 Depression screening Demario Rolle Other H/O: hysterectomy Demario Heredia all Other Hormone replacement therapy Demario Rolle Other Hormone replacement therapy Demario Rolle Other Hysterectomy Demario Rolle Other Screening for malign ant neoplasm of breast Demario Rolle Other Plan of Treatment Date Care Activity Detail Author Start: 02-27-2028 Screening for malignant neoplasm of cervix [facility] Start: 03-22-2025 End: 03-22-2025 Patient encounter procedure 03/22/2025 8:30 AM EST Office Visit [facility] [address] [place] [id number] Angel Hinojosa DO [address] [place] [address] [facility] Start: 05-07-2024 End: 05-07-2024 Patient encounter procedure 05/07/2024 11:25 AM EST Office Visit [facility] [address] [place] [id number] Concepcion Wilde, [employer]AGE MANAGER [address] [place] [address] [facility] Start: 03-12-2024 End: 03-12-2025 DXA Skeletal system Views for bone density DEXA bone density Imaging Routine Postmenopausal state Expected: 03/12/2024 (Approximate), Expires: 03/12/2025 [facility] Comment on above: Expected: 03/12/2024 (Approximate), Expires: 03/12/2025 Start: 03-12-2024 End: 05-10-2025 MG Breast - bilateral Screening Bilateral screening mammogram Imaging Routine Breast cancer screening by mammogram Expected: 03/12/2024, Expires: 05/10/2025 [facility] Work Phone: Comment on above: Expected: 03/12/2024 , Expires: 05/10/2025 Start: 03-12-2024 End: 03-12-2024 Patient encounter procedure [facility] Comment on above: Arrived Start: 02-23-2024 Screening for malignant neoplasm of breast Mammogram [facility] Start: 11-03-2023 Influenza vaccination Influenza Vacc ine (#1) [facility] Start: 2000 Screening for malignant neoplasm of cervix [facility] Start: 11-07-1991 Screening for malignant neoplasm of cervix Pap Smear [facility] Start: 1970 Screening for malignant neoplasm of colon [facility] THIN PREP TIS PAP AN D HR HPV DNA THIN PREP TIS PAP AND HR HPV DNA Pathology and Cytology Routine Well woman exam with routine gynecological exam Ordered: 03/12/2024 [facility] Comment on above: Ordered: 03/12/2024 Payers Date Payer Category Payer Private Health Insurance 1.2 [id number] 1970 Unknown [id number] 2.16. [id number] 1970 Unknown [id number] 2.16.84 [id number] 1970 Unknown [id number] 2.16.84 [id number] 1970 Unknown [id number] 2.16.84 [id number] 1970 Unknown [id number] 2.16.84 [id number] 1970 Unknown [id number] 2.16.84 [id number] 1970 Unknown [id number] 2.16.84 [id number] 1959 Private Health Insurance [id number] Social History Date Type Detail Facility Start: 05-07-2023 Sex Assigned At N [employer] Other Start: 05-07-2023 Tobacco smoking status NHIS Never smoked tobacco [facility] Start: 05-07-2023 Tobacco use and exposure Smokeless tobacco non-user [facility] Start: 05-07-2023 History of Social function [facility] Start: 1970 Sex assigned at Female N [facility] Start: 02-25-2023 Gender identity Identifies as female gender (finding) [facility] Clinical Notes 03-14-2022 to 03-12-2024 Tawanaprem Mohamud, SHOP WORKER - 03/12/2024 8:30 AM Compa Mohamud, SHOP WORKER - 10/17/2023 3:46 PM EDT Note Date & Type Note Facility 03-12-2024 History of Presen t illness Narrative Reason for Appointment: Patient ID: Celia Nino is a 53 y.o. female who presents for [facility] Visit Patient presents today for Annual [...] nursing note reviewed. Exam conducted with a cloth sponger present. Vitals: Estimated body mass index is [...] Angel Hinojosa DO documented in this encounter [facility] 10-17-2023 History of Presen t illness [...] Tawana Mohamud LPN documented in this encounter [facility] 03-13-2023 Evaluation note Encounter Date Diagnosis [...] of pancreatic cancer, weight loss and nausea [facility] 09-11-2023 Evaluation note* Encounter Date Diagnosis Assessment Notes Treatment Notes Treatment Clinical Notes Nov, Essential (primary) hypertension (ICD-10 - I10) [facility] 07-07-2023 Evaluation note* Encounter Date Diagnosis [...] for congestion, Tylenol for pain and fever. [facility] 01-11-2023 Evaluation note* Encounter Date Diagnosis [...] to adverse effects w/ BP and CVI [facility] Other Evaluation noteNo InformationNort [facility] Other Evaluation note* Diagnosis Family history of cancer Family history of unspecified malignant neoplasm Dense breast tissue documented in this encounter [facility] HealthcareEvaluation note* Diagnosis Breast cancer screening [...] back surgeries Hospitalization History see surgical history [facility] Other History general Narrative - Reported* Type [...] x 4 Hospitalization History see surgical history [facility] Other Summary Purpose Family History No Family History Records FoundNo Family History Records FoundNo Family History Records FoundNo Family History Records FoundNo Family History Records Found Advance Directives No Advanced Directives Records FoundNo Advanced Directives Records FoundNo Advanced Directives Records FoundNo Advanced Directives Records FoundNo Advanced Directives Records Found Hospital Course Note NAME: LUANNE NINO MR #: [id number] ADMIT DATE: 06/25/2018 DISCHARGE DATE: 06/28/2018 DISCHARGE [...] section and content) DATE CREATED AUTHOR 07/04/2018 [facility] DATE CREATED AUTHOR AUTHOR'S ORGANIZ ATION 09/25/2018 [facility] DATE CREATED AUTHOR AUTHOR'S ORGANIZ ATION 05/02/2021 [facility] DATE CREATED AUTHOR AUTHOR'S ORGANIZ ATION 03/17/2022 [facility] DATE CREATED AUTHOR AUTHOR'S ORGANIZ ATION 03/17/2024 [facility] dical Specialists EPIC REASON FOR VISIT (unrecogniz ed section and content) Reason Comments [facility] Visit Care Teams (unrecognized sec tion and content) Home Health Registered Nurse Relationship Specialty Start Date End Date Demario Rolle MD [address] [place] [address] PCP - General 02/25/23 Home Health Registered Nurse Relationship Specialty Start Date End Date Demario Rolle MD [address] [place] [phone] PCP - General 02/25/23 Home Health Registered Nurse Relationship Specialty Start Date End Date Demario Rolle MD [address] [place] [phone] PCP - General 02/25/23 FOR RECORDS PERTAINING [...] BE BASED ON THE PRIMARY CLINICAL RECORDS. [facility] [email or web address] [facility]. provides no warranty or guarantee of the accuracy or completeness of information in this document.
== END 2024-05-19 07:29 | disposition home or self-care (01) ==
LOC: MRI 07:28
PROVIDERS: PCP Internal Medicine; Visit Provider Internal Medicine
DX: R10.13 Epigastric pain (principal); Z80.0 Family history of malignant neoplasm of digestive organs
CPT/HCPCS: 74181

== ENCOUNTER 2024-08-19 07:09 | Outpatient (OUT) | payer OTHER, SELFPAY ==
--- OUTSIDE RECORDS SUMMARY | 2023-07-02 06:15 | XMS_ITS ---
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 :1970 A ge:52 Y S ex:Female Date:07/02/2023 Address:[address] [place], [place] [id number] Pcp:Demario Rolle DO Subjective: * Chief Complaints: * 1 . New PT Hem. * Medical History: Objective: * Vitals: Assessment: Plan: * Treatment: * * Electronic signature of Grzegorz Nuñez MD, [id number] on 08/19/2024 at 07:11 AM EDT Sign off status: Pending Visit Status: C ONFPHONE (Voice) * Provider: Ila Nuñez M.D. Date: 0 07/02/2023 Generated for Ignacio mason/Mal/Khanhitting on: 0 08/19/2024 07:11 AM EDT
--- OUTSIDE RECORDS SUMMARY | 2023-07-23 06:15 | XMS_ITS ---
Author Organization [facility] [place] Address [address] [place] [address] Care Team Providers Care Repairer Veneer Sheet Name Role Phone Demario Rolle DO Primary Care Provider Ashtyn Tay [phone] REASON FOR VISIT MD Encounters Encounter Location Date Provider Diagnosis [facility] [address] [place] [phone] 07/23/2023 Ashtyn Nuñez Plan Of Treatment No Information Progress Notes * Luanne NINO LDOB:[birth year] (53 yo F)Acc No.[id number]:07/23/2023 UNLOCKED PROGRESS NOTE Progress Notes Patient: Luanne WIGGINS Provider: Ila Nuñez M.D. :1970 A ge:52 Y S ex:Female Date:07/23/2023 Address:[address] [place], [place] [id number] Pcp:Demario Rolle DO Subjective: * Chief Complaints: * 1 . MD. * Medical History: Objective: * Vitals: Assessment: Plan: * Treatment: * * Electronic signature of Grzegorz Nuñez MD, [id number] on 08/19/2024 at 07:11 AM EDT Sign off status: Pending Visit Status: C ONFPHONE (Voice) * Provider: Ila Nuñez M.D. Date: 0 07/23/2023 Generated for Ashleyyeimy mason/Mal/eTransmitting on: 0 08/19/2024 07:11 AM EDT
--- NOTE | 2024-08-19 07:11 | MM_ITS ---
Patient Name: LIBBY GARCIA MR#: [id number] : 1970 Exam Date: 08/19/2024 Ordering Doctor: DR ANGEL LEWIS . RADIOLOGY REPORT PROCEDURE: MM TOMOSYNTHESIS SCREENING BI COMPARISON: MM TOMOSYNTHESIS DIAGNOSTIC BI, 08/15/2023. MM TOMOSYNTHESIS SCREENING BI, 02/22/2023. MG MAMM SCREEN 3D RAMEZ CAD, 02/05/2022. MG MAMM RAMEZ SCRN W CAD DIG, 10/27/2013. INDICATIONS: screening for malignant neoplasm of breast Calculator Name [facility] Breast Cancer Risk Assessment Tool 5 Year Breast Cancer Risk 0.90% Lifetime Breast Cancer Risk 7.00% Personal Breast Cancer No Personal Ovarian Cancer No Treatments None Family Cancers Mother with melanoma cancer at age 41. LOCATION: [facility] BREAST COMPOSITION: The breasts are heterogeneously dense,which may obscure small masses. FINDINGS: DIAGNOSTIC CATEGORY 1--NEGATIVE. RIGHT BREAST: No significant suspicious finding. LEFT BREAST: No significant suspicious finding. RECOMMENDATIONS: ROUTINE MAMMOGRAM AND CLINICAL EVALUATION IN 12 MONTHS. PLEASE NOTE: A NORMAL MAMMOGRAM DOES NOT EXCLUDE THE POSSIBILITY OF BREAST CANCER. A CLINICALLY SUSPICIOUS PALPABLE LUMP SHOULD BE BIOPSIED. Dictated by: Shin Peña DO on 08/19/2024 at 16:32 Approved by: Shin Peña DO on 08/19/2024 at 16:33
--- OUTSIDE RECORDS SUMMARY | 2024-08-19 07:11 | XMS_ITS | Clinical Summary ---
Author Organization [facility] Address [address] [place] [address] Care Team Providers Care Outsole Flexer Name Role Phone Demario Rolle DO Primary Care Provider [phone] Allergies No known active allergies Medications gabapentin (Neurontin) 100 MG capsule TAKE 2 CAPSULES BY MOUTH 3 TIMES A DAY FOR 30 DAYS 06/21/2023 Active traMADol (Ultram) 50 MG tablet TAKE 1 TABLET BY MOUTH AT BEDTIME FOR 14 DAYS 05/31/2023 Active hydroCHLOROthia zide (Microzide) 12.5 MG capsule 1 (one) time each day at the same time Active estrogens, conjugated, (Premarin) 1.25 MG tabletIndicatio ns:Postmenopaus al state Take 1 tablet (1.25 mg) by mouth 1 (one) time each day at the same time 90 tablet 3 03/12/2024 03/07/19 26 Active Active Problems No known active problems Encounters Date Type Department Care Team Description 06/04/2024 8:55 AM EDT Office Visit [facility] [address] [place] [address] Concepcion Wilde, MASH FILTER CLOTH CHANGER-DELICATESSEN DEPARTMENT MANAGER Melanocytic nevus of trunk (Primary Dx); Lentigines; Chavez angioma 06/04/2024 Bamboo flowsheet [facility] [address] [place] [address] Concepcion Wilde, MASH FILTER CLOTH CHANGER-DELICATESSEN DEPARTMENT MANAGER 06/04/2024 Travel from Last 3 Months Family History Medical History Relation Name Comments Cancer Mother Relation Name Status Comments Maternal Grandfather Maternal Grandmother Mother Paternal Grandfather Paternal Grandmother Social History Tobacco Use Types Packs/Day Years Used Date Smoking Tobacco: Never Smokeless Tobacco: Never Tobacco Cessation:Counseling Given: Not Answered Comments No Sex and Gender Information Value Date Recorded Sex Assigned at Female 02/25/2023 8:37 AM EST Legal Sex Female 11:47 PM EDT Gender Identity Female 02/25/2023 8:37 AM EST Sexual Orientation Not on file Last Filed Vital Signs Vital Sign Reading Time Taken Comments Blood Pressure 130/70 03/12/2024 8:37 AM EST Pulse - - Temperature - - Respiratory Rate - - Oxygen Saturation - - Inhaled Oxygen Concentration - - Weight 70.9 kg (156 lb 6.4 oz) 03/12/2024 8:37 A M EST Height 162.6 cm (5' 4 ) 07/30/2023 1:04 PM EDT Body Mass Index 26.85 07/30/2023 1:04 PM EDT Plan of Treatment Upcoming Encounters Date Type Department Care Team (Late st Contact Info) Description 03/22/2025 8:30 AM EST Office Visit [facility] [address] [address] Julio Hinojosa DO [address] [place] [address] 06/07/2025 8:30 AM EDT Office Visit [facility] [address] [place] [phone] Concepcion Wilde APRN-DELICATESSEN DEPARTMENT MANAGER [address] [place] [address] Health Maintenance Due Date Last Done Comments CT Colonography 1970 Colonoscopy 1970 Colorectal Cancer Screening 1970 FIT-DNA 1970 FIT 1970 FOBT 1970 Sigmoidoscopy 1970 Mammogram 08/14/2024 08/15/2023, 02/02, 02/05/2022, Additional history exists Influenza Vaccine (Season Ended) 2024 Pap Smear 03/12/2027 03/12/2024, 02/26/2023 Cervical Cancer Screening 02/27/2028 HPV/Cotest 02/27/2028 Procedures Procedure Name Priority Date/Time Associated Diagnosis Comments PAP SMEAR Routine 03/12/2024 12:00 AM EST MM TOMOSYNTHESIS DIAGNOSTIC BI 08/15/2023 10:06 AM EDT from Last 3 Months or Most Recently Relevant to Health Maintenance Results * Pap Smear (03/12/2024 12:00 AM EST) Swab Cervical swab / Unknown us [facility] Ashish Nurse LAB CYTOLOGY ORDERABLES Final Result EXTERNAL LAB * MM TOMOSYNTHESIS DIAGNOSTIC BI (08/15/2023 10:06 AM EDT) Anatomical Region Laterality Modality Other 08/15/2023 10:0 6 AM EDT Narrative 08/15/2023 10:07 [place] [address] Mammography Report Signed Patient: LUANNE NINO MR#: [id number] : 1970 Acct:[id number] Age/Sex: 52 / F ADM Date: 08/15/23 Loc: MAMMO Attending Dr: Julio Hinojosa D.O. Ordering Physician: Julio Hinojosa D.O. Results: Date of Service: 08/15/23 Follow Up: Procedure(s): MM tomosynthesis diagnostic BI Accession Number(s): [id number] cc: Demario Rolle D.O.; Julio Hinojosa D.O. Patient Name: LUANNE NINO MR#: [id number] : 1970 Exam Date: 08/15/2023 Ordering Doctor: DR Julio Hinojosa . RADIOLOGY REPORT PROCEDURE: MM TOMOSYNTHESIS DIAGNOSTIC BI COMPARISON: MM TOMOSYNTHESIS SCREENING BI, 02/22/2023. INDICATIONS: Breast Lump Calculator Name NCI Breast Cancer Risk Assessment Tool 5 Year Breast Cancer Risk 0.90% Lifetime Breast Cancer Risk 7.10% Personal Breast Cancer No Personal Ovarian Cancer No Treatments None Family Cancers Mother with melanoma cancer at age 41. LOCATION: [facility] BREAST COMPOSITION: The breasts are heterogeneously dense,which may obscure small masses. FINDINGS: DIAGNOSTIC CATEGORY 2--BENIGN FINDING. NO CHANGE FROM COMPARISON. RIGHT BREAST: No significant suspicious finding. LEFT BREAST: No significant suspicious finding. RECOMMENDATIONS: ROUTINE MAMMOGRAM AND CLINICAL EVALUATION IN 12 MONTHS. PLEASE NOTE: A NORMAL MAMMOGRAM DOES NOT EXCLUDE THE POSSIBILITY OF BREAST CANCER. A CLINICALLY SUSPICIOUS PALPABLE LUMP SHOULD BE BIOPSIED. Dictated by: Preet Triana MD on 08/15/2023 at 10:04 Approved by: Preet Triana MD on 08/15/2023 at 10:06 Dictated By: Preet Triana M.D. Signed By: 08/15/23 1007 DD/ 1006 TD/TT: Credit Card Clerk: Procedure Note Radiology, Radiologist, MD - 08/15/2023 [place] [address] Mammography Report Signed Patient: LUANNE NINO LMR#: [id number] : 1970Acct:[id number] Age/Sex: 52 / FADM Date: 08/15/23 Loc: MAMMO Attending Dr: Julio Hinojosa D.O. Ordering Physician: Juilo Hinojosa D.O.Results: Date of Service: 08/15/23Follow Up: Procedure(s): MM tomosynthesis diagnostic BI Accession Number(s): [id number] cc: Demario Rolle D.O.; Julio Hinojosa D.O. Patient Name: LUANNE NINO MR#: [id number] : 1970 Exam Date: 08/15/2023 Ordering Doctor: DR Julio Hinojosa . RADIOLOGY REPORT PROCEDURE: MM TOMOSYNTHESIS DIAGNOSTIC BI COMPARISON: MM TOMOSYNTHESIS SCREENING BI, 02/22/2023. INDICATIONS: Breast Lump Calculator Name NCI Breast Cancer Risk Assessment Tool 5 Year Breast Cancer Risk 0.90% Lifetime Breast Cancer Risk 7.10% Personal Breast Cancer No Personal Ovarian Cancer No Treatments None Family Cancers Mother with melanoma cancer at age 41. LOCATION: [facility] BREAST COMPOSITION: The breasts are heterogeneously dense,which may obscure small masses. FINDINGS: DIAGNOSTIC CATEGORY 2--BENIGN FINDING. NO CHANGE FROM COMPARISON. RIGHT BREAST: No significant suspicious finding. LEFT BREAST: No significant suspicious finding. RECOMMENDATIONS: ROUTINE MAMMOGRAM AND CLINICAL EVALUATION IN 12 MONTHS. PLEASE NOTE: A NORMAL MAMMOGRAM DOES NOT EXCLUDE THE POSSIBILITY OFBREAST CANCER. A CLINICALLY SUSPICIOUS PALPABLE LUMP SHOULD BE BIOPSIED. Dictated by: Preet Triana MD on 08/15/2023 at 10:04 Approved by: Preet Triana MD on 08/15/2023 at 10:06 Dictated By: Preet Triana M.D. Signed By:08/15/23 1007 DD/ 1006 TD/TT: Credit Card Clerk: Julio Hinojosa DO [facility] Final Result from Last 3 Months or Most Recently Relevant to Health Maintenance Insurance [facility] Care Teams Outsole Flexer Relationship Specialty Start Date End Date Demario Rlole DO PCP - General 02/25/23
--- OUTSIDE RECORDS SUMMARY | 2024-08-19 07:11 | XMS_ITS | Encounter Summary ---
Author Organization [facility] Address [address] [place] [address] Care Team Providers Care Manager Inventory Name Role Phone Demario Rolle DO Primary Care Provider [phone] Encounter Details Date Type Department Care Team (Late st Contact Info) Description 02/22/2023 Clinisync Result Encounter [facility] External Department Unsolicited Julio Hinojosa, DO [address] [phone] Social History Tobacco Use Types Packs/Day Years Used Date Smoking Tobacco: Never Comments Unknown Sex and Gender Information Value Date Recorded Sex Assigned at Female 02/25/2023 8:37 AM EST Legal Sex Female 11:47 PM EDT Gender Identity Female 02/25/2023 8:37 AM EST Sexual Orientation Not on file documented as of this encounter Plan of Treatment Upcoming Encounters Date Type Department Care Team (Late st Contact Info) Description 03/22/2025 8:30 AM EST Office Visit [facility] [address] [place] [phone] Julio Hinojosa, [address] [place] [phone] 06/07/2025 8:30 AM EDT Office Visit [facility] [address] [place] [address] Concepcion Wilde, LEAVE SPECIALIST-ROBOTICS TECHNICIAN [address] [place] [address] documented as of this encounter Procedures Procedure Name Priority Date/Time Associated Diagnosis Comments MM TOMOSYNTHESIS SCREENING BI 02/22/2023 2:48 PM EST documented in this encounter Results * MM TOMOSYNTHESIS SCREENING BI (02/22/2023 2:48 PM EST) Anatomical Region Laterality Modality Other 02/22/2023 2:48 PM EST Narrative 02/22/2023 2:49 [place] [address] Mammography Report Signed Patient: Luanne Nino MR#: [id number] : 1970 Acct:[id number] Age/Sex: 52 / F ADM Date: 02/22/23 Loc: MAMMO Attending Dr: Julio Hinojosa D.O. Ordering Physician: Julio Hinojosa D.O. Results: Date of Service: 02/22/23 Follow Up: Procedure(s): MM tomosynthesis screening BI Accession Number(s): [id number] cc: Demario Rolle D.O.; Julio Hinojosa D.O. Patient Name: LUANNE NINO MR#: [id number] : 1970 Exam Date: 02/22/2023 Ordering Doctor: DR Julio Hinojosa . RADIOLOGY REPORT PROCEDURE: MM TOMOSYNTHESIS SCREENING BI COMPARISON: MG MAMM SCREEN 3D RAMEZ CAD, 02/05/2022. MG MAMM SCREEN 3D RAMEZ CAD, 01/27/2021. MG MAMM SCREEN RAMEZ W CAD, 01/27/2020. MG MAMM RAMEZ SCRN W CAD DIG, 10/27/2013. INDICATIONS: Screening Mammography Calculator Name NCI Breast Cancer Risk Assessment Tool 5 Year Breast Cancer Risk 0.90% Lifetime Breast Cancer Risk 7.10% Personal Breast Cancer No Personal Ovarian Cancer No Treatments None Family Cancers Mother with melanoma cancer at age 41. LOCATION: [facility] BREAST COMPOSITION: Heterogeneously dense,which may obscure small masses. FINDINGS: DIAGNOSTIC CATEGORY 1--NEGATIVE. RIGHT BREAST: No significant suspicious finding. No significant change has occurred. LEFT BREAST: No significant suspicious finding. No significant change has occurred. RECOMMENDATIONS: ROUTINE MAMMOGRAM AND CLINICAL EVALUATION IN 12 MONTHS. PLEASE NOTE: A NORMAL MAMMOGRAM DOES NOT EXCLUDE THE POSSIBILITY OF BREAST CANCER. A CLINICALLY SUSPICIOUS PALPABLE LUMP SHOULD BE BIOPSIED. Dictated by: Jadiel Hooks M.D. on 02/22/2023 at 14:45 Approved by: Jadiel Hooks M.D. on 02/22/2023 at 14:47 Dictated By: Jadiel Hooks M.D. Signed By: 02/22/23 1449 DD/ 1448 TD/TT: Mental Health Technician: Procedure Note Radiology, Radiologist, MD - 02/22/2023 [place] [address] Mammography Report Signed Patient: Luanne Nino LMR#: [id number] : 1970Acct:[id number] Age/Sex: 52 / FADM Date: 02/22/23 Loc: MAMMO Attending Dr: Julio Hinojosa D.O. Ordering Physician: Julio Hinojosa D.O.Results: Date of Service: 02/22/23Follow Up: Procedure(s): MM tomosynthesis screening BI Accession Number(s): [id number] cc: Demario Rolle D.O.; Julio Hinojosa D.O. Patient Name: LUANNE NINO MR#: [id number] : 1970 Exam Date: 02/22/2023 Ordering Doctor: DR Julio Hinojosa . RADIOLOGY REPORT PROCEDURE: MM TOMOSYNTHESIS SCREENING BI COMPARISON: MG MAMM SCREEN 3D RAMEZ CAD, 02/05/2022. MG MAMM SCREEN 3DBIL CAD, 01/27/2021. MG MAMM SCREEN RAMEZ W CAD, 01/27/2020. MG MAMM RAMEZ SCRNW CAD DIG, 10/27/2013. INDICATIONS: Screening Mammography Calculator Name NCI Breast Cancer Risk Assessment Tool 5 Year Breast Cancer Risk 0.90% Lifetime Breast Cancer Risk 7.10% Personal Breast Cancer No Personal Ovarian Cancer No Treatments None Family Cancers Mother with melanoma cancer at age 41. LOCATION: [facility] BREAST COMPOSITION: Heterogeneously dense,which may obscure smallmasses. FINDINGS: DIAGNOSTIC CATEGORY 1--NEGATIVE. RIGHT BREAST: No significant suspicious finding. No significant changehas occurred. LEFT BREAST: No significant suspicious finding. No significant changehas occurred. RECOMMENDATIONS: ROUTINE MAMMOGRAM AND CLINICAL EVALUATION IN 12 MONTHS. PLEASE NOTE: A NORMAL MAMMOGRAM DOES NOT EXCLUDE THE POSSIBILITY OFBREAST CANCER. A CLINICALLY SUSPICIOUS PALPABLE LUMP SHOULD BE BIOPSIED. Dictated by: Jadiel Hooks M.D. on 02/22/2023 at 14:45 Approved by: Jadiel Hooks M.D. on 02/22/2023 at 14:47 Dictated By: Jadiel Hooks M.D. Signed By:02/22/23 1449 DD/ 1448 TD/TT: Mental Health Technician: Julio Hinojosa DO [facility] Final Result documented in this encounter Visit Diagnoses Not on filedocumented in this encounter Care Teams Manager Inventory Relationship Specialty Start Date End Date Demario Rolle DO PCP - General 02/25/23 documented as of this encounter
--- OUTSIDE RECORDS SUMMARY | 2024-08-19 07:11 | XMS_ITS | Encounter Summary ---
Author Organization [facility] Address [address] [place] [address] Care Team Providers Care Lapel Padder Blindstitch Name Role Phone Demario Rolle DO Primary Care Provider [phone] Encounter Details Date Type Department Care Team (Late st Contact Info) Description 08/15/2023 Clinisync Result Encounter [facility] External Department Unsolicited Julio Hinojosa [address] [place] [address] Social History Tobacco Use Types Packs/Day Years Used Date Smoking Tobacco: Never Smokeless Tobacco: Never Comments No Sex and Gender Information Value Date Recorded Sex Assigned at Female 02/25/2023 8:37 AM EST Legal Sex Female 11:47 PM EDT Gender Identity Female 02/25/2023 8:37 AM EST Sexual Orientation Not on file documented as of this encounter Plan of Treatment Upcoming Encounters Date Type Department Care Team (Late st Contact Info) Description 03/22/2025 8:30 AM EST [facility] Visit [facility] [address] [place] [phone] Julio Hinojosa DO [address] [place] [address] 06/07/2025 8:30 AM EDT Office Visit [facility] [address] [place] [phone] Concepcion Wilde, BACTERIOLOGY PROFESSOR-COMPANY DANCER [address] [place] [address] documented as of this encounter Procedures Procedure Name Priority Date/Time Associated Diagnosis Comments MM TOMOSYNTHESIS DIAGNOSTIC BI 08/15/2023 10:06 AM EDT documented in this encounter Results * MM TOMOSYNTHESIS DIAGNOSTIC BI (08/15/2023 10:06 AM EDT) Anatomical Region Laterality Modality Other 08/15/2023 10:0 6 AM EDT Narrative 08/15/2023 10:07 AM EDT [address] [address] Mammography Report Signed Patient: LUANNE NINO MR#: [id number] : 1970 Acct:[id number] Age/Sex: 52 / F ADM Date: 08/15/23 Loc: MAMMO Attending Dr: Julio Hinojosa D.O. Ordering Physician: Julio Hinojosa D.O. Results: Date of Service: 08/15/23 Follow Up: Procedure(s): MM tomosynthesis diagnostic BI Accession Number(s): [id number] cc: Demario Rolle D.O.; Julio Hinojosa D.O. Patient Name: LUANNE NINO MR#: [id number] : 1970 Exam Date: 08/15/2023 Ordering Doctor: [...] melanoma cancer at age 41. LOCATION: [facility] BREAST COMPOSITION: The breasts are heterogeneously [...] Signed By: 08/15/23 1007 DD/ 1006 TD/TT: Ply Bander: Procedure Note Radiology, Radiologist, MD - 08/15/2023 The [place] [id number] Mammography Report Signed Patient: LUANNE NINO LMR#: [id number] : 1970Acct:[id number] Age/Sex: 52 / FADM Date: 08/15/23 Loc: MAMMO Attending Dr: Julio Hinojosa D.O. Ordering Physician: Julio Hinojosa D.O.Results: Date of Service: 08/15/23Follow Up: Procedure(s): MM tomosynthesis diagnostic BI Accession Number(s): [id number] cc: Demario Rolle D.O.; Julio Hinojosa D.O. Patient Name: LUANNE NINO MR#: [id number] : 1970 Exam Date: 08/15/2023 Ordering Doctor: [...] melanoma cancer at age 41. LOCATION: [facility] BREAST COMPOSITION: The breasts are heterogeneously [...] M.D. Signed By:08/15/23 1007 DD/ 1006 TD/TT: Ply Bander: us Julio Ashish DO [facility] Final Result documented in this encounter Visit Diagnoses Not on filedocumented in this encounter Care Teams Lapel Padder Blindstitch Relationship Specialty Start Date End Date Demario Rolle DO PCP - General 02/25/23 documented as of this encounter
--- OUTSIDE RECORDS SUMMARY | 2024-08-19 07:11 | XMS_ITS | Clinical Summary ---
Author Organization [facility] Address [id number] [address] [id number] Care Team Providers Care Ceo Name Role Phone Unavailable Primary Care Provider Unavailabl e Immunizations Immunization Administration Dates Next Due COVID-19, mRNA, LNP-S, PF, 100mcg/0.5mL Dose Social History Tobacco Use Types Packs/Day Years Used Date Smoking Tobacco: Never Assessed Childcare Answer Date Recorded Childcare Unknown 06/13/2020 Employment Answer Date Recorded Employment Unknown 06/13/2020 Purpose - Life Answer Date Recorded Purpose and direction in life Unknown Comments Unknown Sex and Gender Information Value Date Recorded Sex Assigned at Not on file Legal Sex Female 2:37 PM EDT Gender Identity Not on file Sexual Orientation Not on file Plan of Treatment Health Maintenance Due Date Last Done Comments Depression Screening 1982 Tobacco Screening 1982 Adult BMI Screening 1988 DTaP,Tdap and Td Vaccines (1 - Tdap) 1989 Pap Smear 11/07/1991 Zoster (Shingles) Vaccine (1 of 2) 2020 COVID-19 Vaccine (2 - season) 2023 Influenza Vaccine 11/02/2024 Medical Devices Not on file Insurance [facility]
--- OUTSIDE RECORDS SUMMARY | 2024-08-19 07:11 | XMS_ITS | CCD ---
Author Organization [facility] Care Team Providers Care Decaler Name Role Phone AQUILINO, DR SOTOMAYOR Admitting Unavailable AQUILINO, DR SOTOMAYOR Attending Unavailable AQUILINO, DR SOTOMAYOR Primary Care Unavailable AQUILINO, DR SOTOMAYOR Consulting Unavailable ASHISH, DR ORTIZ Admitting Unavailable ASHISH, DR ORTIZ Attending Unavailable AQUILINO, DR SOTOMAYOR Primary Care Unavailable GLEN ALLEN, DR MARCELINA Kennedy Consulting Unavailable ASHISH, DR ORTIZ Consulting Unavailable ASHISH, DR ORTIZ Admitting Unavailable ASHISH, DR ORTIZ Attending Unavailable AQUILINO, DR SOTOMAYOR Primary Care Unavailable ASHISH, DR ORTIZ Consulting Unavailable ZIEBBRENT, DR CRISTINE Garnica Consulting Unavailable Demario Rolle Unavailable Demario Rolle MD Primary Care Provider ANGEL HINOJOSA Attending Unavailable ANGEL HINOJOSA Attending Unavailable CONCEPCION WILDE Attending Unavailable Allergies Allergy Classification Reported Allergen(s) Allergy Type Date of Onset Reaction(s) Facility (2 sources) patient allergy list reviewed by nurse or physicia Propensity to adverse reactions 8 Comment:Done [facility] Other (2 sources) Allergies Reconciled Propensity to adverse reactions Unknown [facility] Other Medications Current Medications Medication Drug Class(es) Dates Sig (Normalized) Sig (Original) cyclobenzaprine hydrochloride 10 mg oral tablet (8 sources) Muscle Relaxant Start: 3 Cyclobenzaprine HCl 10 MG 1 Orally Once a day for 30 day(s) Mar, Active estrogens, conjugated (senior care) 1.25 mg oral tablet (17 sources) Estrogen Start: 3 End: 6 take 1 tablet by mouth once daily estrogens, conjugated, (Premarin) 1.25 MG tablet Indications: Postmenopausal state Take 1 tablet (1.25 mg) by mouth 1 (one) time each day at the same time 90 tablet 3 03/12/2024 03/07/2025 Active gabapentin 100 mg oral capsule (8 sources) Anti-epilepti c Agent Start: 4 take 2 capsules by mouth three times daily gabapentin (Neurontin) 100 MG capsule TAKE 2 CAPSULES BY MOUTH 3 TIMES A DAY FOR 30 DAYS 06/21/2023 Active hydroCHLOROthiazide 12.5 mg oral capsule (16 sources) Thiazide Diuretic Start: 3 take 1 capsule by mouth every twenty-four hours hydroCHLOROthiazide 12.5 MG 1 tablet in the morning Orally Once a day for 90 days Mar, Active Multivitamin preparation (7 sources) take 1 tablet by mouth once daily Multivitamin - 1 tablet Orally Once a day Active traMADol hydrochloride 50 mg oral tablet (8 sources) Opioid Agonist Start: 4 take 1 [...] and vomiting (1 source) Nausea Episodic Other and unspecified benign neoplasm (2 sources) Melanocytic nevus of trunk; Translations: [Melanocytic nevi of trunk] 06-04-2024 Episodic Other and unspecified benign neoplasm (2 sources) Senile angioma; Translations: [Hemangioma of skin and subcutaneous tissue] 06-04-2024 Episodic Other congenital anomalies (2 sources) Congenital [...] malignant neoplasm of cervix] Onset: 02-05-2022 Episodic Other skin disorders (2 sources) Lentiginosis; Translations: [Other melanin hyperpigmentation] 06-04-2024 Episodic Residual codes; unclassified (4 sources) Asymptomatic [...] GDLNon AGE GDLN ACOG TESTING Note . [facility] Comment on above: TESTS RESULT FLAG UN ITS REF RANGE LAB Clinician Provided Cytology Information Source.............Vagina No. of containers..01 ThinPrep Vial Age Chary JOHNS Gi... FLAG LEGEND: L-Low Normal,H-High Normal,LL-Alert Low,HH-Alert High <-Panic Low,>-Panic High,A-Abnormal,AA-Critical Abnormal Performed at: 01 =[address] [address] Araceli Sánchez MD, HPV APTIMA Negative Negative [facility] Comment on above: This nucleic acid am plification test detects fourteen high- risk HPV types (16,18,31,33,35,39,45,51,52,56,58,59,66,68) without differentiation. Performed at: =[address] [id number] [employer] Worker: Araceli Sánchez MD, Phone: [phone] Performed at: [address] [id number] [employer] Worker: Araceli Sánchez MD, Phone: [phone] IGP, APTIMA HPV, RFX 16/18,45 Note . [facility] Comment on above: TESTS RESULT FLAG UN ITS REF RANGE LAB DIAGNOSIS: 02 NEGATIVE FOR INTRAEPITHELIAL LESION OR MALIGNANCY. CELLULAR CHANGES ASSOCIATED WITH INFLAMMATION ARE PRESENT. Specimen adequacy: 02 Satisfactory for evaluation. No endocervical cells are present. This is consistent with a history of hysterectomy. Performed by: 02 [place] Commissioner Public [employer] ([facility]) . 02 Note: Note 02 The Pap [...] <-Panic Low,>-Panic High,A-Abnormal,AA-Critical Abnormal Performed at: [address] [address] Araceli Sánchez MD, SPATULA-ALONE VAGINA [facility] Cervical or vaginal smear or scraping studyOrdered By: Mary Frederick on 02-26-2023 [facility] CBC AUTO DIFFon 03-17-2022 BASO # 0.0 103/ul Normal 0.0-0.1 [facility] Comment on above: Performed By: #### C BC #### [facility] [address] [address] [address] Dong Mack Basophils/100 WBC (Bld) 0.7 % Normal 0.2-2.0 [facility] Comment on above: Performed By: #### C BC #### [facility] [address] [address] [address] Dong Mack EO # 0.1 103/ul Normal 0.0-0.7 [facility] Comment on above: Performed By: #### C BC #### [facility] [address] [place] [address] Dr. Dong Mack Eosinophils/100 WBC (Bld) 2.2 % Normal 0.9-7.0 [facility] Comment on above: Performed By: #### C BC #### [facility] [address] [place] [address] Dr. Dong Mack Erythrocyte distribution width (RBC) [Ratio] 11.8 % Normal 11.0-15.0 [facility] Comment on above: Performed By: #### C BC #### [facility] [address] [place] [address] Dr. Dong Mack Hematocrit (Bld) [Volume fraction] 39.6 % Normal 36.0-48.0 [facility] Comment on above: Performed By: #### C BC #### [facility] [address] [place] [address] Dr. Dong Mack Hemoglobin (Bld) [Mass/Vol] 13.9 g/dL Normal 12.0-16.0 [facility] Comment on above: Performed By: #### C BC #### [facility] [address] [place] [address] Dr. Dong Mack IG # 0.02 10e3/ul Normal 0.00-0.03 [facility] Comment on above: Performed By: #### C BC #### [facility] [address] [place] [address] Dr. Dong Mack IG % 0.4 % Normal 0.0-0.5 [facility] Comment on above: Performed By: #### C BC #### [facility] [address] [place] [address] Dr. Dong Mack LYMPH # 2.3 103/ul Normal 1.2-3.8 [facility] Comment on above: Performed By: #### C BC #### [facility] [address] [place] [address] Dr. Dong Mack Lymphocytes/100 WBC (Bld) 42.7 % Normal 20.5-60.0 [facility] Comment on above: Performed By: #### C BC #### [facility] [address] [place] [address] Dr. Dong Mack MANUAL DIFF REQ NO Normal [facility] Comment on above: Performed By: #### C BC #### [facility] [address] [place] [address] Dr. Dong Mack MCH (RBC) [Entitic mass] 31.4 pg Normal 26.7-34.0 [facility] Comment on above: Performed By: #### C BC #### [facility] [address] [place] [address] Dr. Dong Mack MCHC (RBC) [Mass/Vol] 35.1 g/dL Normal 29.9-35.2 [facility] Comment on above: Performed By: #### C BC #### [facility] [address] [place] [address] Dr. Dong Mack MCV (RBC) [Entitic vol] 89.4 fL Normal 81.0-99.0 [facility] Comment on above: Performed By: #### C BC #### [facility] [address] [place] [address] Dr. Dong Mack MONO # 0.4 103/ul Normal 0.3-0.8 [facility] Comment on above: Performed By: #### C BC #### [facility] [address] [place] [address] Dr. Dong Mack Monocytes/100 WBC (Bld) 6.9 % Normal 1.7-12.0 [facility] Comment on above: Performed By: #### C BC #### [facility] [address] [place] [address] Dr. Dong Mack NEUT # 2.5 103/ul Normal 1.4-6.5 [facility] Comment on above: Performed By: #### C BC #### [facility] [address] [place] [address] Dr. Dong Mack Neutrophils/100 WBC (Bld) 47.1 % Normal 43.0-75.0 [facility] [place] Comment on above: Performed By: #### C BC #### [facility] [address] [place] [address] Dr. Dong Mack Platelet mean volume (Bld) [Entitic vol] 10.7 fL Normal 9.5-13.5 [facility] Comment on above: Performed By: #### C BC #### [facility] [address] [place] [address] Dr. Dong Mack PLT 280 103/ul Normal 150-450 [facility] Comment on above: Performed By: #### C BC #### [facility] [address] [place] [address] Dr. Dong Mack RBC 4.43 106/ul Normal 4.20-5.40 [facility] Comment on above: Performed By: #### C BC #### [facility] [address] [place] [address] Dr. Dong Mack WBC 5.3 103/ul Normal 4.0-11.0 [facility] Comment on above: Performed By: #### C BC #### [facility] [address] [place] [address] Dr. Dong Mack LIPID PROFILEon 03-17-2022 CHOL-HDL RATIO NORM SEE BELOW Normal [facility] Comment on above: Result Comment: 3.3 - 4.4 LOW RISK 4.4 - 7.1 AVERAGE RISK 7.1 - 11.0 MODERATE RISK >11.0 HIGH RISK Performed By: #### L IPID, TSH, CMP #### [facility] [address] [place] [address] Dr. Dong Mack Cholesterol [Mass/Vol] 254 mg/dL Critically high <=200 [facility] Comment on above: Performed By: #### L IPID, TSH, CMP #### [facility] [address] [place] [address] Dr. Dong Mack Cholesterol in HDL [Mass/Vol] 72 mg/dL Critically high 40-60 [facility] Comment on above: Performed By: #### L IPID, TSH, CMP #### [facility] [address] [address] [address] Dong Mack Cholesterol in LDL [Mass/Vol] 152.4 mg/dL Normal [facility] [place] Comment on above: Performed By: #### L IPID, TSH, CMP #### [facility] [address] [address] [address] Dong Mack Cholesterol.total/ Cholesterol in HDL [Mass ratio] 3.5 {ratio} Normal [facility] Comment on above: Performed By: #### L IPID, TSH, CMP #### [facility] [address] [address] [address] Dong Mack HDL NORMAL > or = 60 mg/dl - LO W CARDIOVASCULAR RISK <40 mg/dl - HIGH CARDIOVASCULAR RISK Normal [facility] Comment on above: Performed By: #### L IPID, TSH, CMP #### [facility] [address] [address] [address] Dong Mack LDL CALC NORMAL SEE BELOW Normal [facility] Comment on above: Result Comment: <100 mg/dl OPTIMAL 100 - 129 mg/dl NEAR OR ABOVE OPTIMAL 130 - 159 mg/dl BORDERLINE HIGH 160 - 189 mg/dl HIGH >190 mg/dl VERY HIGH Performed By: #### L IPID, TSH, CMP #### [facility] [address] [address] [address] Dong Mack Triglyceride [Mass/Vol] 148 mg/dL Normal <=150 [facility] Comment on above: Performed By: #### L IPID, TSH, CMP #### [facility] [address] [place] [address] Dr. Dong Mack VLDL CALC 29.6 mg/dL Normal [facility] Comment on above: Performed By: #### L IPID, TSH, CMP #### [facility] [address] [place] [address] Dr. Dong Mack PROF 14(COMP METB)on 023 Albumin [Mass/Vol] 3.8 g/dL Normal 3.4-5.[address] [facility] Comment on above: Performed By: #### L IPID, TSH, CMP #### [facility] [address] [address] [address] Dong Mack Albumin/Globulin [Mass ratio] 1.2 {ratio} Normal [facility] Comment on above: Performed By: #### L IPID, TSH, CMP #### [facility] [address] [address] [address] Dong Mack ALP [Catalytic activity/Vol] 52 U/L Normal 46-116 [facility] Comment on above: Performed By: #### L IPID, TSH, CMP #### [facility] [address] [address] [address] Dong Mack ALT [Catalytic activity/Vol] 27 U/L Normal 14-59 [facility] Comment on above: Performed By: #### L IPID, TSH, CMP #### [facility] [address] [address] [address] Dong Mack Anion gap [Moles/Vol] 8.1 mmol/L Normal [facility] Comment on above: Performed By: #### L IPID, TSH, CMP #### [facility] [address] [address] [address] Dong Mack AST [Catalytic activity/Vol] 22 U/L Normal 15-37 [facility] Comment on above: Performed By: #### L IPID, TSH, CMP #### [facility] [address] [address] [address] Dong Mack Bilirubin [Mass/Vol] 0.7 mg/dL Normal 0.2-1.0 [facility] Comment on above: Performed By: #### L IPID, TSH, CMP #### [facility] [address] [address] [address] Dong Mack Calcium [Mass/Vol] 9.2 mg/dL Normal 8.5-10.[address] [facility] Comment on above: Performed By: #### L IPID, TSH, CMP #### [facility] [address] [address] [address] Dnog Mack Chloride [Moles/Vol] 103 mmol/L Normal 98-107 [facility] Comment on above: Performed By: #### L IPID, TSH, CMP #### [facility] [address] [address] [address] Dong Mack CO2 [Moles/Vol] 33.9 mmol/L Critically high 21.0-32.0 [facility] Comment on above: Performed By: #### L IPID, TSH, CMP #### [facility] [address] [place] [address] Dr. Dong Mack Creatinine [Mass/Vol] 0.66 mg/dL Normal 0.55-1.02 [facility] Comment on above: Performed By: #### L IPID, TSH, CMP #### [facility] [address] [place] [address] Dr. Dong Mack EGFR-AF SAMOAN >60 Normal >=60 [facility] Comment on above: Performed By: #### L IPID, TSH, CMP #### [facility] [address] [place] [address] Dr. Dong Mack EGFR-NON AF SAMOAN >60 Normal >=60 [facility] Comment on above: Performed By: #### L IPID, TSH, CMP #### [facility] [address] [place] [address] Dr. Dong Mack Globulin (S) [Mass/Vol] 3.3 g/dL Normal [facility] Comment on above: Performed By: #### L IPID, TSH, CMP #### [facility] [address] [place] [address] Dr. Dong Mack Glucose [Mass/Vol] 94 mg/dL Normal 74-[address] [facility] Comment on above: Performed By: #### L IPID, TSH, CMP #### [facility] [address] [place] [address] Dr. Dong Mack Potassium [Moles/Vol] 4.0 mmol/L Normal 3.5-5.1 [facility] Comment on above: Performed By: #### L IPID, TSH, CMP #### [facility] [address] [place] [address] Dr. Dong Mack Protein [Mass/Vol] 7.1 g/dL Normal 6.4-8.[address] [facility] Comment on above: Performed By: #### L IPID, TSH, CMP #### [facility] [address] [address] [address] Dong Mack Sodium [Moles/Vol] 141 mmol/L Normal 136-[address] [facility] Comment on above: Performed By: #### L IPID, TSH, CMP #### [facility] [address] [address] [address] Dong Mack Urea nitrogen [Mass/Vol] 13.0 mg/dL Normal 7.0-18.0 [facility] Comment on above: Performed By: #### L IPID, TSH, CMP #### [facility] [address] [place] [address] Dr. Dong Mack Urea nitrogen/Creatinin e [Mass ratio] 19.7 mg/mg [facility] Comment on above: Performed By: #### L IPID, TSH, CMP #### [facility] [address] [place] [address] Dr. Dong Mack TSHon 03-17-2022 TSH 1.223 uIU/mL Normal 0.358-3.740 [facility] Comment on above: Performed By: #### L IPID, TSH, CMP #### [facility] [address] [place] [address] Dr. Dong Mack PAP ACOG PANEL 2: 30 to 65on 02-13-2022 . . [facility] Comment on above: Result Comment: Perf ormed at: WB Performed By: #### [id number] #### [facility] [address] [place] [address] Dr. Dong Mack Age Gdln ACOG Testing - [facility] Comment on above: Performed By: #### [id number] #### [facility] [address] [place] [address] Dr. Dong Mack DIAGNOSIS: Comment [facility] Comment on above: Result Comment: NEGA TIVE FOR INTRAEPITHELIAL LESION OR MALIGNANCY. Performed at: WB Performed By: #### [id number] #### [facility] [address] [place] [address] Dr. Dong Mack HPV Aptima Negative Normal Negative [facility] Comment on above: Result Comment: This nucleic acid amplification test detects fourteen high-risk HPV types (16,18,31,33,35,39,45,51,52,56,58,59,66,68) without differentiation. Performed at: =G Performed By: #### [id number] #### [facility] [address] [address] [address] Dong Mack HPV Genotype Reflex Comment Normal [facility] Comment on above: Result Comment: Crit eria not met, HPV Genotype not performed. Performed at: WB Performed By: #### [id number] #### [facility] [address] [place] [address] Dr. Dong Mack Methodology: Comment Normal [facility] Comment on above: Result Comment: This liquid based ThinPrep(R) pap test was screened with the use of an image guided system. Performed at: WB Performed By: #### [id number] #### [facility] [address] [place] [address] Dr. Dong Mack Note: Comment Normal [facility] Comment on above: Result Comment: The Pap smear is a screening test designed to aid in the detection of premalignant and malignant conditions of the uterine cervix. It is not a diagnostic procedure and should not be used as the sole means of detecting cervical cancer. Both false-positive and false-negative reports do occur. . Performed at: WB Performed By: #### [id number] #### [facility] [address] [place] [address] Dr. Dong Mack Performed by: Comment Normal [facility] Comment on above: Result Comment: Nithya Keen, Commissioner [employer] Performed at: WB Performed By: #### [id number] #### [facility] [address] [place] [address] Dr. Dong Mack Specimen adequacy: Comment Normal [facility] Comment on above: Result Comment: Sati sfactory for evaluation. Endocervical and/or squamous metaplastic cells (endocervical component) are present. Performed at: WB Performed By: #### [id number] #### [facility] [address] [place] [address] Dr. Dong Mack XR DEXA BONE DENSITYon [...] by: CRISTINE POPE Date: 2022-02-13 08:43 Normal [facility] MAMM SCREEN 3D RAMEZ CADon 02-05-2022 MG MAMM SCREEN 3D RAMEZ CAD Patient: LUANNE NINO Exam Date: 02/05/2022 : 1970 Gender:F Ordering : DR ANGEL HINOJOSA . Admission #: [id number] Family : DR DEMARIO ROLLE D.O. Order #: [id number] CLICK HERE TO VIEW EXAM RADIOLOGY REPORT [...] at age 41. LOCATION: [facility] BREAST COMPOSITION: Heterogeneously dense,which may obscure [...] Triana MD on 02/05/2022 at 09:50 Normal [facility] COVID-19 Antigenon 2 COVID-19 Antigen Healthcare Worker?: [...] its performance Carli Disclaimer characteristic determined by [employer] and Carli Disclaimer validated at [facility]. This Carli Disclaimer test has not [...] is terminated or revoked sooner. PERFORMED BY: [place] [address] PATHOLOGIST ASSET CARD CLERK WAQAS DÍAZ M.D. Normal [facility] Comment on above: Performed By: #### C OVID-19 CARLI, SOFIANEG #### [address] Carli Ag Negativeon 04-25-19 Carli Ag Negative Negative Normal Negative [facility] Comment on above: Result Comment: This is a duplicate Carli SARS Antigen (ANTONIO) result to be used for statistical tracking purpose only. PERFORMED BY: [place] [id number] PATHOLOGIST ASSET CARD CLERK WAQAS DÍAZ M.D. Performed By: #### C OVID-19 CARLI, SOFIANEG #### [address] LUMBAR SPINE 2 OR 3 VIEWSon 09-18-2018 LUMBAR SPINE 2 OR 3 VIEWS STUDY: LUMBAR SPINE 2 OR 3 VIEWS; 09/18/2018 10:45 am INDICATION: PAIN. COMPARISON: Intraoperative radiographs from 06/25/2018 ACCESSION NUMBER(S): [id number] ORDERING CLINICIAN: Emely Puckett FINDINGS: Interbody graft at L3-4. Posterior metallic fusion hardware with laminectomy defects L4-S1. Grade 2-3 anterolisthesis L5-S1 unchanged. No new fracture subluxation. No new disc height loss. Degenerative changes appear similar prior exam. IMPRESSION: L3-4 and L4-S1 fusion changes. Normal [facility] BASIC MET PANELon 06-26-2018 Anion gap [Moles/Vol] 8 mmol/L Normal -18 [facility] Comment on above: Order Comment: CONSE RVATION Performed By: #### L 500.42032, L500.62799, L500.87494 #### Test performed at: [address] [address] Calcium [Mass/Vol] 8.3 mg/dL Low 8.5-10.1 [facility] Comment on above: Order Comment: CONSE RVATION Performed By: #### L 500.17992, L500.67557, L500.34156 #### Test performed at: [address] [address] Chloride [Moles/Vol] 103 mmol/L Normal 98-107 [facility] Comment on above: Order Comment: CONSE RVATION Performed By: #### L 500.59717, L500.88914, L500.13231 #### Test performed at: [address] [address] CO2 [Moles/Vol] 30 mmol/L Normal 21-32 [facility] Comment on above: Order Comment: CONSE RVATION Performed By: #### L 500.58907, L500.10384, L500.37852 #### Test performed at: [address] [address] Creatinine [Mass/Vol] 0.620 mg/dL Normal 0.550-1.020 [facility] Comment on above: Order Comment: CONSE RVATION Performed By: #### L 500.05098, L500.54517, L500.05611 #### Test performed at: [address] [address] Glucose [Mass/Vol] 139 mg/dL High 70-99 [facility] Comment on above: Order Comment: CONSE RVATION Result Comment: Fast ing GLUCOSE reference range has been updated per (ADA) [place] [employer]'s recommendation. 05/27/2018 Performed By: #### L 500.67532, L500.89958, L500.36438 #### Test performed at: [address] [address] OSM 284 mosm/kg Normal 270-300 [facility] Comment on above: Order Comment: CONSE RVATION Performed By: #### L 500.51765, L500.05999, L500.64168 #### Test performed at: [address] [address] Potassium [Moles/Vol] 4.3 mmol/L Normal 3.5-5.1 [facility] Comment on above: Order Comment: CONSE RVATION Performed By: #### L 500.89053, L500.53222, L500.15047 #### Test performed at: [address] [address] Sodium [Moles/Vol] 137 mmol/L Normal 136-145 [facility] Comment on above: Order Comment: CONSE RVATION Performed By: #### L 500.46980, L500.41183, L500.36150 #### Test performed at: [address] [address] Urea nitrogen [Mass/Vol] 5 mg/dL Low 7-18 [facility] Comment on above: Order Comment: CONSE RVATION Performed By: #### L 500.52302, L500.29056, L500.52217 #### Test performed at: [address] [address] CBC W/DIFFon 06-26-2018 BASO ABS 0.0 K/uL Normal 0.0-0.2 [facility] Comment on above: Order Comment: CONSE RVATION Performed By: #### L 200.61976 #### Test performed at: [address] [address] Basophils/100 WBC (Bld) 0.1 % Normal [facility] Comment on above: Order Comment: CONSE RVATION Performed By: #### L 200.80150 #### Test performed at: [address] [address] EOS ABS 0.0 K/uL Normal 0.0-0.5 [facility] Comment on above: Order Comment: CONSE RVATION Performed By: #### L 200.33101 #### Test performed at: [address] [address] Eosinophils/100 WBC (Bld) 0.0 % Normal [facility] Comment on above: Order Comment: CONSE RVATION Performed By: #### L 200.25867 #### Test performed at: [address] [address] IG % 0.5 % Normal [facility] Comment on above: Order Comment: CONSE RVATION Performed By: #### L 200.70921 #### Test performed at: [address] [address] IG ABS 0.07 K/uL High 0-0.05 [facility] Comment on above: Order Comment: CONSE RVATION Performed By: #### L 200.85765 #### Test performed at: [address] [place] [address] Lymphocytes (Bld) [#/Vol] 1.2 10*3/uL Normal 1.2-3.5 [facility] Comment on above: Order Comment: CONSE RVATION Performed By: #### L 200.87108 #### Test performed at: [address] [address] Lymphocytes/100 WBC (Bld) 9.2 % Normal [facility] Comment on above: Order Comment: CONSE RVATION Performed By: #### L 200.19941 #### Test performed at: [address] [address] MONO ABS 0.8 K/uL Normal 0.0-1.0 [facility] Comment on above: Order Comment: CONSE RVATION Performed By: #### L 200.64434 #### Test performed at: [address] [address] Monocytes/100 WBC (Bld) 5.7 % Normal [facility] Comment on above: Order Comment: CONSE RVATION Performed By: #### L 200.37469 #### Test performed at: [address] [address] NEUTROPHIL ABS 11.4 K/uL High 1.4-6.6 [facility] Comment on above: Order Comment: CONSE RVATION Performed By: #### L 200.98180 #### Test performed at: [address] [address] Neutrophils/100 WBC (Bld) 84.5 % Normal [facility] Comment on above: Order Comment: CONSE RVATION Performed By: #### L 200.30848 #### Test performed at: [address] [address] Erythrocyte distribution width (RBC) [Ratio] 11.5 % Normal 11.5-14.5 [facility] Comment on above: Order Comment: CONSE RVATION Performed By: #### L 200.03761 #### Test performed at: [address] [address] Hematocrit (Bld) [Volume fraction] 31.4 % Low 36.0-48.0 [facility] Comment on above: Order Comment: CONSE RVATION Performed By: #### L 200.18418 #### Test performed at: [address] [address] Hemoglobin (Bld) [Mass/Vol] 11.2 g/dL Low 12.0-15.0 [facility] Comment on above: Order Comment: CONSE RVATION Result Comment: Delt a: 14.1 on 06/12/18 Performed By: #### L 200.13135 #### Test performed at: [address] [address] MCH (RBC) [Entitic mass] 32.3 pg Normal 25.4-34.6 [facility] Comment on above: Order Comment: CONSE RVATION Performed By: #### L 200.01552 #### Test performed at: [address] [address] MCHC (RBC) [Mass/Vol] 35.7 g/dL Normal 31.5-36.5 [facility] Comment on above: Order Comment: CONSE RVATION Performed By: #### L 200.02176 #### Test performed at: [address] [address] MCV (RBC) [Entitic vol] 90.5 fL Normal 79.0-98.0 [facility] Comment on above: Order Comment: CONSE RVATION Performed By: #### L 200.57633 #### Test performed at: [address] [address] NRBC # 0.000 K/uL Normal 0-0.012 [facility] Comment on above: Order Comment: CONSE RVATION Performed By: #### L 200.98751 #### Test performed at: [address] [address] NRBC % 0.0 /100 WBC Normal 0-0.2 [facility] Comment on above: Order Comment: CONSE RVATION Performed By: #### L 200.14565 #### Test performed at: [address] [address] Platelet mean volume (Bld) [Entitic vol] 11.3 fL Normal 8.7-12.4 [facility] Comment on above: Order Comment: CONSE RVATION Performed By: #### L 200.80869 #### Test performed at: [address] [address] Platelets (Bld) [#/Vol] 208 10*3/uL Normal 140-440 [facility] Comment on above: Order Comment: CONSE RVATION Performed By: #### L 200.00578 #### Test performed at: [place] [id number] RBC (Bld) [#/Vol] 3.47 10*6/uL Low 3.5-5.5 [facility] Comment on above: Order Comment: CONSE RVATION Performed By: #### L 200.47043 #### Test performed at: [address] [address] WBC (Bld) [#/Vol] 13.5 10*3/uL High 3.9-11.0 [facility] Comment on above: Order Comment: CONSE RVATION Result Comment: Delt a: 6.5 on 06/12/18 Performed By: #### L 200.18153 #### Test performed at: [place] [id number] EST. CREAT CLRon 06-26-2018 Creatinine [Mass/Vol] 159.375 ML/MIN Normal [facility] Comment on above: Order Comment: CBN: YES [place]: MAIN Result Comment: This result is an ESTIMATED blood creatinine clearance value which is derived from the patient age, sex, weight, and previous blood creatinine result. Performed By: #### L 500.74441, L500.72987 #### Test performed at: [place] [address] GFR ESTIMATEon 06-26-2018 IF AMER > 60 Normal > 60 [facility] Comment on above: Order Comment: CBN: YES [place]: MAIN Result Comment: eGFR (Estimated GFR) Units of measure:mL/min/1.73 meters sq. *CALCULATION REVISED 12/21/2014;IDMS-traceable MDRD equation eGFR is derived from the reexpressed MDRD Study equation using the following parameters: serum creatinine, age, gender and race. An eGFR<60 mL/min/1.73m2 for >3 months is consistent with chronic kidney disease. Refer to KDOQI guidelines for clinical interpretation. Performed By: #### L 500.85925, L500.47724 #### Test performed at: [place] [address] IF non-AFR AMER > 60 Normal > 60 [facility] Comment on above: Order Comment: CBN: YES [place]: MAIN Performed By: #### L 500.87273, L500.41132 #### Test performed at: [place] [address] CONSULTATION REPORTon 2018 CONSULTATION REPORT NAME: LUANNE NINO MR#: [id number] PSYCHOPAEDIC NURSE: Valencia Hernandez MD DATE OF CONSULTATION: 06/26/2018 [...] patient is medically stable. VALENCIA HERNANDEZ MD /MODL/[id number] [facility] PT NAME: LUANNE NINO MR#: [id number] [address] [place] [address] ACCT: [id number] : 70 CONSULTATION E/S: Valencia Hernandez MD 06/26/18 1221 Electronically Signed [facility] PT NAME: LUANNE NINO MR#: [id number] [address] [place], [place] [address] ACCT: [id number] : 70 CONSULTATION Normal [facility] OPERATIVE REPORTon 201 9 OPERATIVE REPORT NAME: LUANNE NINO MR#: [id number] SURGEON: Casandra Russell MD DATE OF SURGERY: 06/25/2018 OPERATIVE REPORT STAFF REGISTERED NURSE: Filiberto Kaur. PREOPERATIVE DIAGNOSIS: Right L5 radiculopathy [...] The patient was positioned prone on the Otrega frame. The back was clipped, prepped, and [...] were able to stay in the midline [facility] PT NAME: LUANNE NINO MR#: [id number] [address] [place], [place] [id number] ACCT: [id number] : 70 OPERATIVE REPORT exposing just a [...] tolerated the procedure well. CASANDRA RUSSELL MD [facility] PT NAME: LUANNE NINO MR#: [id number] [address] [place], [place] [id number] ACCT: [id number] : 70 OPERATIVE REPORT JSA/MODL/[id number] E/S: Casandra Russell MD 06/30/18 1134 Electronically Signed [facility] PT NAME: LUANNE NINO MR#: [id number] [address] [place] [address] ACCT: [id number] : 70 OPERATIVE REPORT Normal [facility] TSon 06-25-2018 ABO and Rh group Nom (Bld) A POSITIVE Normal [facility] Comment on above: Order Comment: CONSE RVATION CBN: NO [place]: MAIN Transfusion Status: CONSERVATION Blood Bank service requested: TYPE AND SCREEN Comments To Phleb: IN SDS Performed By: #### B 100.0200 #### Test performed at: [place] [address] LUMBAR SPINE 1 VIEWon 2018 LUMBAR SPINE 1 VIEW STUDY: LUMBAR SPINE 1 VIEW;; 06/25/2018 11:10 am; 06/25/2018 12:20 pm INDICATION: REMOVAL HARDWARE , FORAMINOTOMY L4-S1; HARDWARE REMOVAL, FORAMINOTOMY L4-S1. COMPARISON: None. ACCESSION NUMBER(S): [id number]; [id number] ORDERING CLINICIAN: Casandra Russell FINDINGS: 2 lateral intraoperative views of the lumbar spine were performed for intraoperative localization. Please see procedure report for further details. IMPRESSION: Two lateral intraoperative views of the lumbar spine for localization. Please see procedure report for further details Normal [facility] LUMBAR SPINE 1 VIEW STUDY: LUMBAR SPINE 1 VIEW;; 06/25/2018 11:10 am; 06/25/2018 12:20 pm INDICATION: REMOVAL HARDWARE , FORAMINOTOMY L4-S1; HARDWARE REMOVAL, FORAMINOTOMY L4-S1. COMPARISON: None. ACCESSION NUMBER(S): [id number]; [id number] ORDERING CLINICIAN: Casandra Russell FINDINGS: 2 lateral intraoperative views of the lumbar spine were performed for intraoperative localization. Please see procedure report for further details. IMPRESSION: Two lateral intraoperative views of the lumbar spine for localization. Please see procedure report for further details Normal [facility] BASIC MET PANELon 06-12-2018 Anion gap [Moles/Vol] 10 mmol/L Normal 6-18 [facility] Comment on above: Order Comment: CBN: YES [place]: MAIN Performed By: #### L 500.80093, L500.93270 #### Test performed at: [address] [address] Calcium [Mass/Vol] 9.7 mg/dL Normal 8.5-10.1 [facility] Comment on above: Order Comment: CBN: YES [place]: MAIN Performed By: #### L 500.34088, L500.92230 #### Test performed at: [address] [address] Chloride [Moles/Vol] 104 mmol/L Normal 98-107 [facility] Comment on above: Order Comment: CBN: YES [place]: MAIN Performed By: #### L 500.33921, L500.52666 #### Test performed at: [address] [address] CO2 [Moles/Vol] 30 mmol/L Normal 21-32 [facility] Comment on above: Order Comment: CBN: YES [place]: MAIN Performed By: #### L 500.85650, L500.25600 #### Test performed at: [address] [address] Creatinine [Mass/Vol] 0.665 mg/dL Normal 0.550-1.020 [facility] Comment on above: Order Comment: CBN: YES [place]: MAIN Performed By: #### L 500.60012, L500.89223 #### Test performed at: [address] [address] Glucose [Mass/Vol] 98 mg/dL Normal 70-99 [facility] Comment on above: Order Comment: CBN: YES [place]: MAIN Result Comment: Fast ing GLUCOSE reference range has been updated per (ADA) [place] [employer]'s recommendation. 05/27/2018 Performed By: #### L 500.64143, L500.51754 #### Test performed at: [place] [address] OSM 288 mosm/kg Normal 270-300 [facility] Comment on above: Order Comment: CBN: YES [place]: MAIN Performed By: #### L 500.39772, L500.92791 #### Test performed at: [address] [address] Potassium [Moles/Vol] 4.5 mmol/L Normal 3.5-5.1 [facility] Comment on above: Order Comment: CBN: YES [place]: MAIN Performed By: #### L 500.81218, L500.09616 #### Test performed at: [address] [address] Sodium [Moles/Vol] 139 mmol/L Normal 136-145 [facility] Comment on above: Order Comment: CBN: YES [place]: MAIN Performed By: #### L 500.99924, L500.22053 #### Test performed at: [address] [address] Urea nitrogen [Mass/Vol] 13 mg/dL Normal 7-18 [facility] Comment on above: Order Comment: CBN: YES [place]: MAIN Performed By: #### L 500.14792, L500.05555 #### Test performed at: [address] [address] CBCon 06-12-2018 Erythrocyte distribution width (RBC) [Ratio] 11.9 % Normal 11.5-14.5 [facility] Comment on above: Order Comment: CBN: YES [place]: MAIN Performed By: #### L 200.62328 #### Test performed at: [address] [address] Hematocrit (Bld) [Volume fraction] 40.7 % Normal 36.0-48.0 [facility] Comment on above: Order Comment: CBN: YES [place]: MAIN Performed By: #### L 200.34109 #### Test performed at: [address] [address] Hemoglobin (Bld) [Mass/Vol] 14.1 g/dL Normal 12.0-15.0 [facility] Comment on above: Order Comment: CBN: YES [place]: MAIN Performed By: #### L 200.22856 #### Test performed at: [address] [address] MCH (RBC) [Entitic mass] 31.9 pg Normal 25.4-34.6 [facility] Comment on above: Order Comment: CBN: YES [place]: MAIN Performed By: #### L 200.48811 #### Test performed at: [address] [address] MCHC (RBC) [Mass/Vol] 34.6 g/dL Normal 31.5-36.5 [facility] Comment on above: Order Comment: CBN: YES [place]: MAIN Performed By: #### L 200.77336 #### Test performed at: [address] [address] MCV (RBC) [Entitic vol] 92.1 fL Normal 79.0-98.0 [facility] Comment on above: Order Comment: CBN: YES [place]: MAIN Performed By: #### L 200.82149 #### Test performed at: [place] [id number] NRBC # 0.000 K/uL Normal 0-0.012 [facility] Comment on above: Order Comment: CBN: YES [place]: MAIN Performed By: #### L 200.13427 #### Test performed at: [place] [id number] NRBC % 0.0 /100 WBC Normal 0-0.2 [facility] Comment on above: Order Comment: CBN: YES [place]: MAIN Performed By: #### L 200.05300 #### Test performed at: [address] [address] Platelet mean volume (Bld) [Entitic vol] 11.8 fL Normal 8.7-12.4 [facility] Comment on above: Order Comment: CBN: YES [place]: MAIN Performed By: #### L 200.83365 #### Test performed at: [address] [address] Platelets (Bld) [#/Vol] 246 10*3/uL Normal 140-440 [facility] Comment on above: Order Comment: CBN: YES [place]: MAIN Performed By: #### L 200.03464 #### Test performed at: [address] [address] RBC (Bld) [#/Vol] 4.42 10*6/uL Normal 3.5-5.5 [facility] Comment on above: Order Comment: CBN: YES [place]: MAIN Performed By: #### L 200.54140 #### Test performed at: [address] [address] WBC (Bld) [#/Vol] 6.5 10*3/uL Normal 3.9-11.0 [facility] Comment on above: Order Comment: CBN: YES [place]: MAIN Performed By: #### L 200.93874 #### Test performed at: [address] [address] GFR ESTIMATEon 06-12-2018 IF AMER > 60 Normal > 60 [facility] Comment on above: Order Comment: CBN: YES [place]: MAIN Result Comment: eGFR (Estimated GFR) Units of measure:mL/min/1.73 meters sq. *CALCULATION REVISED 12/21/2014;IDMS-traceable MDRD equation eGFR is derived from the reexpressed MDRD Study equation using the following parameters: serum creatinine, age, gender and race. An eGFR<60 mL/min/1.73m2 for >3 months is consistent with chronic kidney disease. Refer to KDOQI guidelines for clinical interpretation. Performed By: #### L 500.35917, L500.61137 #### Test performed at: [place] [address] IF non-AFR AMER > 60 Normal > 60 [facility] Comment on above: Order Comment: CBN: YES [place]: MAIN Performed By: #### L 500.07446, L500.04911 #### Test performed at: [place] [address] TSPATon 06-12-2018 ABO and Rh group Nom (Bld) A POSITIVE Normal [facility] Comment on above: Order Comment: CBN: YES [place]: MAIN Transfusion Status: CONSERVATION Blood Bank service requested: TYPE AND SCREEN Specimen Comment: SURG 06/25 Performed By: #### B 100.0201 #### Test performed at: [place] [address] Vital Signs Date Time Vital Sign Value Performing Clinician Facility 03-12-2024 08:37-0500 Body mass index (BMI) [Ratio] 26.85 kg/m2 [employer] Work Phone: [facility] 03-12-2024 08:37-0500 Body weight 70.94 kg [employer] Work Phone: [facility] 03-12-2024 08:37-0500 Diastolic blood pressure 70 mm[Hg] Angel Ashish [employer] Work Phone: [facility] 03-12-2024 08:37-0500 Systolic blood pressure 130 mm[Hg] Angel Ashish [employer] Work Phone: [facility] 03-13-2023 08:30-0500 Body height 162.56 cm [facility] Other [facility] Other 03-13-2023 08:30-0500 Body mass index (BMI) [Ratio] 25.37 kg/m2 [facility] Other [facility] Other 03-13-2023 08:30-0500 Body weight 67.04 kg Demario Ball Other [facility] Other 03-13-2023 08:30-0500 Diastolic blood pressure 75 mm[Hg] Demario Ball Other [facility] Other 03-13-2023 08:30-0500 Respiratory rate 12 /min Demario Ball Other [facility] Other 03-13-2023 08:30-0500 Systolic blood pressure 125 mm[Hg] Demario Ball Other [facility] Other 09-07-2022 13:30-0400 Body height 162.56 cm Demario Ball Other [facility] Other 09-07-2022 13:30-0400 Body mass index (BMI) [Ratio] 26.19 kg/m2 Demario Ball Other [facility] Other 09-07-2022 13:30-0400 Body weight 69.22 kg Demario Ball Other [facility] Other 09-07-2022 13:30-0400 Diastolic blood pressure 76 mm[Hg] Demario Ball Other [facility] Other 09-07-2022 13:30-0400 Respiratory rate 12 /min Demario Ball Other [facility] Other 09-07-2022 13:30-0400 Systolic blood pressure 117 mm[Hg] Demario Ball Other [facility] Other 03-14-2022 09:30-0500 Body height 162.56 cm Demario Ball Other [facility] Other 03-14-2022 09:30-0500 Body mass index (BMI) [Ratio] 30.34 kg/m2 Demario Ball Other [facility] Other 03-14-2022 09:30-0500 Body weight 80.2 kg Demario Ball Other [facility] Other 03-14-2022 09:30-0500 Diastolic blood pressure 78 mm[Hg] Demario [employer] Other [facility] Other 03-14-2022 09:30-0500 Respiratory rate 12 /min Demario [employer] Other [facility] Other 03-14-2022 09:30-0500 Systolic blood pressure 122 mm[Hg] Demario [employer] Other [facility] Other Encounters Encounter Date Encounter Type Care Provider Facility Start: 06-04-2024 End: 06-04-2024 [employer] Concepcion A Felter [employer] MANAGER Work Phone: [facility] Start: 06-04-2024 End: 06-04-2024 [employer] Concepcion A Felter [employer] SAL[employer] MANAGER Work Phone: [facility] Start: 06-04-2024 End: 06-04-2024 Office outpatient visit 15 minutes Concepcion A Felter [employer] MANAGER Work Phone: [facility] Comment on above: Melanocytic nevus of trunk (Primary Dx); Lentigines; Quintero angioma Start: 06-04-2024 End: 06-04-2024 ambulatory CONCEPCION A FELTER Not Available Start: 03-12-2024 End: 03-12-2024 [employer] Angel Ashish DO Work Phone: [facility] Start: 03-12-2024 End: 03-17-2024 [employer] flowsheet Angel Ashish DO Work Phone: [facility] Start: 03-12-2024 End: 03-17-2024 Clinisync Result Encounter Angel Parekho DO Work Phone: [facility] Unsolicited Start: 03-12-2024 End: 03-12-2024 Patient encounter procedure Angel Parekho DO Work Phone: [facility] Start: 03-12-2024 End: 03-12-2024 Periodic preventive med est patient 40-64yrs Angel Davenportzio DO Work Phone: [facility] Comment on above: Breast cancer screen ing by mammogram; Well woman exam with routine gynecological exam; Postmenopausal state Start: 03-12-2024 End: 03-12-2024 ambulatory ANGEL ASHISH Not Available Start: 10-17-2023 End: 11-11-2023 Orders Only Angel Parekho DO Work Phone: [facility] Comment on above: Family history of ca ncer; Dense breast tissue Start: 07-30-2023 End: 07-30-2023 ambulatory ANGEL ASHISH Not Available Start: 04-02-2023 End: 04-02-2023 ambulatory Demario Rolle Other [facility] Other Start: 04-02-2023 Telephone encounter Demario Aquilino [facility] Start: 04-01-2023 End: 04-01-2023 ambulatory Demario Rolle Other [facility] Other Start: 04-01-2023 Telephone encounter Demario Aquilino [facility] Start: 03-18-2023 End: 03-18-2023 ambulatory Demario Rolle Other [facility] Other Start: 03-18-2023 Telephone encounter Demario Rolle IMELDA [facility] Start: 03-13-2023 End: 03-13-2023 ambulatory Demario Rolle Other [facility] Other Start: 03-13-2023 Encounter for genera l adult medical examination without abnormal findings Demario Rolle [facility] Start: 03-13-2023 Periodic preventive med est patient 40-64yrs Demario Rolle [facility] Start: 11-12-2022 End: 11-12-2022 ambulatory Demario Aquilino Other [facility] Other Start: 11-12-2022 Telephone encounter Demario Rolle [facility] Start: 09-07-2022 End: 09-07-2022 ambulatory Demario Rolle Other [facility] Other Start: 09-07-2022 Office outpatient vi sit 15 minutes Demario Aquilino [facility] Start: 03-17-2022 End: 03-18-[address] DEMARIO ROLLE Facility:[facility] Start: 03-14-2022 End: 03-14-2022 ambulatory Demario Rolle Other [facility] Other Start: 03-14-2022 Encounter for genera l adult medical examination without abnormal findings Demario Rolle [facility] Start: 03-14-2022 Periodic preventive med est patient 40-64yrs Demario Rolle [facility] Start: 03-12-2022 Annual wellness visit Demario Rolle Other [facility] Other Start: 02-13-2022 End: 02-14-[address] ANGEL HINOJOSA Facility:[facility] Start: 02-05-2022 End: 02-06-[address] ANGEL HINOJOSA Facility:[facility] Start: 09-13-2021 Adult health examination Jose Rolle Other [facility] Other Start: 09-13-2021 Gynecological examin ation normal Demario Aquilino Other [facility] Other Start: 06-25-2018 Patient encounter procedure Facility:[id number] Procedures Date Procedure Procedure Detail Performing Clinician Start: 03-12-2024 IGP,APTIMA HPV,AGE GDLN Angel Hinojosa DO Work Phone: Start: 03-12-2024 Microscopic observat ion [Identifier] in Cervix by Cyto stain Concepcion Wilde [employer] MANAGER Work Phone: Start: 08-15-2023 Mammography Concepcion castillo [employer] MANAGER Work Phone: Start: 02-26-2023 Microscopic observat ion [Identifier] in Cervix by Cyto stain Angel Ashish DO Work Phone: Start: 02-26-2023 Cytp cerv/vag auto t hin layer prep mnl screen Angel Ashish DO Work Phone: Start: 02-22-2023 Mammography Angel Fazi o DO Work Phone: Start: 06-25-2018 Antibody screen Comment on above: Order Comment: CONSE RVATION CBN: NO [place]: MAIN Transfusion Status: CONSERVATION Blood Bank service requested: TYPE AND SCREEN Comments To Phleb: IN SDS Result Comment: TYPE AND SCREEN PERFORMED IN [facility] ON 06.12.18. Performed By: #### B 100.0200 #### Test performed at: [place] [address] Start: 06-12-2018 Antibody screen Comment on above: Order Comment: CBN: YES [place]: MAIN Transfusion Status: CONSERVATION Blood Bank service requested: TYPE AND SCREEN Specimen Comment: SURG 06/25 Performed By: #### B 100.0201 #### Test performed at: [place] [address] End: 09-19-2021 Depression screening Demario Rolle Other H/O: hysterectomy Demario Heredia all Other Hormone replacement therapy Demario Rolle Other Hormone replacement therapy Demario Rolle Other Hysterectomy Demario Rolle Other Screening for malign ant neoplasm of breast Demario Rolle Other Plan of Treatment Date Care Activity Detail Author Start: 02-27-2028 Screening for malignant neoplasm of cervix [facility] Start: 01-09-2028 Screening for malignant neoplasm of cervix Pap Smear [facility] Start: 06-07-2025 End: 06-07-2025 Patient encounter procedure 06/07/2025 8:30 AM EDT Office Visit [facility] [address] [place] [address] Concepcion Wilde, [employer] SAL[employer] MANAGER [address] [place] [address] [facility] Start: 03-22-2025 End: 03-22-2025 Patient encounter procedure 03/22/2025 8:30 AM EST [facility] [address] [place] [id number] Angel Hinojosa DO [address] [place] [address] [facility] Start: 11-02-2024 Influenza vaccination Influenz a Vaccine (Season Ended) [facility] Start: 08-14-2024 Screening for malignant neoplasm of breast Mammogram [facility] Start: 06-04-2024 End: 06-04-2024 Patient encounter procedure 06/04/2024 8:55 AM EDT Office Visit [facility] [address] [place] [address] Concepcion Wilde, CHARGE NURSE-GOLF SALES MANAGER [address] [place] [address] Arrived [facility] Comment on above: Arrived Start: 05-07-2024 End: 05-07-2024 Patient encounter procedure 05/07/2024 11:25 AM EST Office Visit [facility] [address] [place] [id number] Concepcion Wilde, CHARGE NURSE-GOLF SALES MANAGER [address] [place] [address] [facility] Start: 03-12-2024 End: 01-09-2026 DXA Skeletal system Views for bone density DEXA bone density Imaging Routine Postmenopausal state Expected: 03/12/2024 (Approximate), Expires: 03/12/2025 [facility] Comment on above: Expected: 03/12/2024 (Approximate), Expires: 03/12/2025 Start: 03-12-2024 End: 05-10-2025 MG Breast - bilateral Screening Bilateral screening mammogram Imaging Routine Breast cancer screening by mammogram Expected: 03/12/2024, Expires: 05/10/2025 [facility] Work Phone: Comment on above: Expected: 03/12/2024 , Expires: 05/10/2025 Start: 03-12-2024 End: 03-12-2024 Patient encounter procedure [facility] Comment on above: Arrived Start: 02-23-2024 Screening for malignant neoplasm of breast Mammogram [facility] Start: 11-03-2023 Influenza vaccination Influenza Vacc ine (#1) [facility] Start: 2000 Screening for malignant neoplasm of cervix [facility] Start: 11-07-1991 Screening for malignant neoplasm of cervix Pap Smear [facility] Start: 1970 Screening for malignant neoplasm of colon [facility] THIN PREP TIS PAP AN D HR HPV DNA THIN PREP TIS PAP AND HR HPV DNA Pathology and Cytology Routine Well woman exam with routine gynecological exam Ordered: 03/12/2024 [facility] Comment on above: Ordered: 03/12/2024 Payers Date Payer Category Payer Private Health Insurance [id number] 1970 Unknown [id number] 1970 Unknown [id number] 2.16.84 [id number] 1970 Unknown [id number] 2.16.84 [id number] 1970 Unknown [id number] 2.16.84 [id number] 1970 Unknown [id number] 2.16.84 [id number] 1970 Unknown [id number] 2.16.84 [id number] 1970 Unknown [id number] 2.16.84 [id number] 1959 Private Health Insurance [id number] Social History Date Type Detail Facility Start: 05-07-2023 End: 07-24-2023 Sex Assigned At [facility] [employer] Other Start: 05-07-2023 Tobacco smoking status ARIS Never smoked tobacco [facility] Start: 05-07-2023 Tobacco use and exposure Smokeless tobacco non-user [facility] Start: 05-07-2023 End: 07-24-2023 History of Social function [facility] Start: 1970 Sex assigned at Female [facility] Start: 02-25-2023 Gender identity Identifies as female gender (finding) [facility] Clinical Notes 03-14-2022 to 06-04-2024 Concepcion Wilde, CHARGE NURSE-GOLF SALES MANAGER - 06/04/2024 8:55 AM EDTSelissa Mohamud, OIL PIT ATTENDANT - 03/12/2024 8:30 AM ESTSelissa Mohamud, [facility] - 10/17/2023 3:46 PM EDT Note Date & Type Note Facility 06-04-2024 History of Presen t illness Narrative Skin Check Location: Patient requests a full body skin examination Dermatologic history: no history of skin cancer, no history of atypical moles, family history of melanoma(mother) Last visit: 1 year ago All pertinent medical history, medications, and allergies were reviewed. General Exam: alert , oriented to person, place, and time , normal affect, well appearing Unaccompanied Scalp, Examined , exam limited by hair Right leg Examined Head, Face Examined Left leg Examined Neck Examined Right foot Examined Chest Examined Left foot Examined Back Examined Buttocks Examined Abdomen Examined Digits,nails: Examined Right arm Examined Left arm Examined Lymphatics: Not examined Hands Examined 1. Melanocytic nevus of trunk Scattered benign appearing, regular brown to light brown melanocytic papules and macules with similar morphology Counseled regarding these benign growths. Rarely, a nevus can develop into malignant melanoma, so any changing nevi should be promptly re-evaluated. 2. Lentigines Head - Anterior (Face) Scattered smith macules in sun-exposed areas. The patient was informed that lentigines are benign pigmented lesions that occur on sun-exposed and sun-damaged skin. No treatment is necessary. Recommended regular use of broad spectrum sunscreen SPF 30 or higher 3. Quintero angioma Trunk Scattered quintero-red macules and papules The patient was informed that angiomas are benign growths on the the skin. No treatment is necessary. Next Visit: 1 year, skin check documented in this encounter [facility] 03-12-2024 History of Presen t illness Narrative Reason for Appointment: Patient ID: Celia Nino is a 53 y.o. female who presents for [facility] Women Visit Patient presents today for Annual [...] nursing note reviewed. Exam conducted with a counter clerk tractor parts present. Vitals: Estimated body mass index is [...] Angel Hinojosa DO documented in this encounter [facility] 10-17-2023 History of Presen t illness Narrative [...] Tawana Mohamud LPN documented in this encounter [facility] 03-13-2023 Evaluation note Encounter Date Diagnosis Assessment [...] of pancreatic cancer, weight loss and nausea [facility] Other 09-11-2023 Evaluation note* Encounter Date Diagnosis Assessment Notes Treatment Notes Treatment Clinical Notes Nov, Essential (primary) hypertension (ICD-10 - I10) [facility] Other 07-07-2023 Evaluation note* Encounter Date Diagnosis Assessment Notes Treatment Notes Treatment Clinical Notes Sep, Essential (primary) hypertension (ICD-10 - [...] for congestion, Tylenol for pain and fever. [facility] Other 01-11-2023 Evaluation note* Encounter Date Diagnosis [...] to adverse effects w/ BP and CVI [facility] Other Evaluation noteNo [facility] Other Evaluation note* Diagnosis Family history of cancer Family history of unspecified malignant neoplasm Dense breast tissue documented in this encounter [facility]* Diagnosis Breast cancer screening by mammogram Well woman exam with routine gynecological exam Routine gynecological examination Postmenopausal state Asymptomatic postmenopausal status (age-related) (natural) documented in this encounter [facility]* Diagnosis Melanocytic nevus of trunk- Primary Benign neoplasm of skin of trunk, except scrotum Lentigines 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 [facility] HealthcareHistory general Narrative - Reported* Type Description [...] back surgeries Hospitalization History see surgical history [facility] Other History general Narrative - Reported* Type [...] x 4 Hospitalization History see surgical history [facility] Other Summary Purpose Family History No Family History Records FoundNo Family History Records FoundNo Family History Records FoundNo Family History Records FoundNo Family History Records Found Advance Directives No Advanced Directives Records FoundNo Advanced Directives Records FoundNo Advanced Directives Records FoundNo Advanced Directives Records FoundNo Advanced Directives Records Found Hospital Course Note NAME: LUANNE NINO MR #: [id number] ADMIT DATE: 06/25/2018 DISCHARGE DATE: 06/28/2018 DISCHARGE [...] section and content) DATE CREATED AUTHOR 07/04/2018 [facility] DATE CREATED AUTHOR AUTHOR'S ORGANIZ ATION 09/25/2018 [facility] DATE CREATED AUTHOR AUTHOR'S ORGANIZ ATION 05/02/2021 [facility] DATE CREATED AUTHOR AUTHOR'S ORGANIZ ATION 03/17/[address] [facility] DATE CREATED AUTHOR AUTHOR'S ORGANIZ ATION 06/07/2024 [facility] d[facility] Specialists EPIC REASON FOR VISIT (unrecogniz ed section and content) Reason Comments Well Women Visit Reason Comments Skin Check Care Teams (unrecognized sec tion and content) Decaler Relationship Specialty Start Date End Date Demario Rolle MD [address] [place] [phone] PCP - General 02/25/23 Decaler Relationship Specialty Start Date End Date Demario Rolle MD [address] [place] [phone] PCP - General 02/25/23 Decaler Relationship Specialty Start Date End Date Demario Rolle MD [address] [place] [address] PCP - General 02/25/23 Decaler Relationship Specialty Start Date End Date Demario Rolle MD [address] [place] [phone] PCP - General 02/25/23 FOR RECORDS PERTAINING [...] BE BASED ON THE PRIMARY CLINICAL RECORDS. [facility] [employer] [facility]. provides no warranty or guarantee of the accuracy or completeness of information in this document.
--- OUTSIDE RECORDS SUMMARY | 2024-08-19 07:12 | XMS_ITS | Patient Health Record ---
Author Organization [facility] [place] Address [address] [place] [address] Care Team Providers Care Automation And Controls Manager Name Role Phone Demario Rolle DO Primary Care Provider Unavaila ble Reason For Referral No Information Plan Of Treatment Pending Test Test Name Order Date CA 19-9 07/02/2023 Insurance Providers Payer Name Payer Address Payer Phone Subscriber Number Group Number Insured Name Patient Relationship to Insured Coverage Start Date Coverage End Date [facility] [address] [address] [place] [address] [id number] Luanne Nino Self - patient is the insured
--- OUTSIDE RECORDS SUMMARY | 2024-08-19 07:12 | XMS_ITS | Clinical Summary ---
Author Organization [facility] Address [address] [place] [address] Phone Care Team Providers Care Product Manager Medical Device Name Role Phone Unavailable Primary Care Provider Unavailabl e Social History Tobacco Use Types Packs/Day Years Used Date Smoking Tobacco: Never Assessed Comments Unknown Sex and Gender Information Value Date Recorded Sex Assigned at Not on file Legal Sex Female 10:35 AM EST Gender Identity Not on file Sexual Orientation Not on file Plan of Treatment Not on file
== END 2024-08-19 07:10 | disposition home or self-care (01) ==
LOC: MAMMO 07:09
PROVIDERS: PCP Internal Medicine; Visit Provider Obstetrics & Gynecology
DX: Z12.31 Encounter for screening mammogram for malignant neoplasm of breast (principal); Z78.0 Asymptomatic menopausal state; Z80.8 Family history of malignant neoplasm of other organs or systems
CPT/HCPCS: 77063; 77067; 77080

== ENCOUNTER 2025-02-15 12:32 | Outpatient (OUT) | payer OTHER, SELFPAY ==
--- NOTE | 2025-02-15 12:40 | CT_ITS ---
The [address] [address] Patient Name: LIBBY GARCIA MRN: [id number] date: 1970 Sex: F Assigned Patient Location: CT Current Patient Location: CT Accession/Order Number: [id number] Exam Date: 02/15/2025 12:45 Report Date: 02/15/2025 13:57 At the request of: DELANEY MCLEOD MD Procedure: CT soft tissue neck w con CT SOFT TISSUE NECK WITH CONTRAST COMPARISON: None CLINICAL DATA: Left-sided neck pain, hoarseness and pharyngoesophageal dysphagia Spiral images were obtained through the neck following 100 mL of Omnipaque 300. This CT exam was performed using one or more following dose reduction techniques: Automated exposure control, adjustment of the mA and/or kV according to patient size, or use of iterative reconstruction technique. No thyroid nodularity is identified. The submandibular and parotid glands appear symmetric. The epiglottis and vocal cords are unremarkable. There is no enlargement of the adenoids or tonsils. The airway is patent throughout its course with normal appearance the mucosal surfaces. There is no prevertebral soft tissue swelling or subcutaneous air. Shotty nonpathologic lymph nodes are visualized, largest in the jugulodigastric region. There is slight reversal of the normal cervical lordosis and degenerative changes at the spine, greatest at C5-6 and C6-7. The imaged paranasal sinuses and mastoid air cells are clear. Limited imaging through the upper chest shows no contributory pulmonary findings. CT/CT soft tissue neck w con IMPRESSION: NO SIGNIFICANT CT ABNORMALITIES INVOLVING THE NECK. Impression dictated by: Bailey Simon M.D. 02/15/2025 1:57 PM Dictation Location: [place] [address] Electronically authenticated by: [id number] Y Date: 02/15/2025 13:57
== END 2025-02-15 12:33 | disposition home or self-care (01) ==
LOC: CT 12:32
PROVIDERS: PCP Internal Medicine; Visit Provider Otolaryngology
DX: R07.0 Pain in throat (principal); R13.14 Dysphagia, pharyngoesophageal phase; M54.2 Cervicalgia; K21.9 Gastro-esophageal reflux disease without esophagitis; R49.0 Dysphonia
CPT/HCPCS: 70491; Q9967